=== PATIENT | female | born 1965 | race Caucasian/White ===

== ENCOUNTER 2017-09-06 18:03 | Emergency (ER) | payer BC ==
--- NOTE | 2017-09-06 20:11 | RAD ---
FOUR VIEWS OF THE LEFT KNEE 09/06/17 COMPARISON: None. HISTORY: Injured left knee, heard a pop this morning, pain. FINDINGS: There are postoperative clips medial to the distal left femur and proximal left tibia. There is athe rosclerotic calcification seen posteriorly in the thigh and calf region. There is no knee joint effu luis, displaced fracture, or evidence of dislocation. The bones are osteopenic. IMPRESSION: No displaced fracture or dislocation seen. POS: [facility]
[2017-09-06] MEDS ORDERED: Acetaminophen 325 MG TAB ONE (21:14)
== END 2017-09-06 21:23 | disposition home or self-care (01) ==
LOC: ERS 18:03
DX: S83.92XA Sprain of unspecified site of left knee, initial encounter (principal); I25.2 Old myocardial infarction; I10 Essential (primary) hypertension; E11.9 Type 2 diabetes mellitus without complications; F41.9 Anxiety disorder, unspecified; F17.210 Nicotine dependence, cigarettes, uncomplicated; Z79.899 Other long term (current) drug therapy; Z79.82 Long term (current) use of aspirin; X50.9XXA Other and unspecified overexertion or strenuous movements or postures, initial encounter

== ENCOUNTER 2017-10-16 08:16 | Observation (INO) | payer BC ==
[2017-10-16 09:17] LABS: Lactic Acid - Sepsis 1.3 mmol/L (0.5-2.2)
[2017-10-16 09:18] LABS: #Basophils 0.1 thou/uL (0.0-0.2); #Eosinphils 0.5 thou/uL (0.0-0.7); #Lymphocytes 2.8 thou/uL (1.20-3.40); #Monocytes 0.5 thou/uL (0.11-0.59); %Basophils 0.7 % (0.0-1.0); %Eosinophils 5.1 % (0.0-10.0); %Lymphocytes 28.1 % (21.0-51.0); %Monocytes 4.7 % (0.0-10.0); Hematocrit 47.3 % (36.0-47.0); Mean Platelet Volume 8.6 fL (7.4-10.4); Red Blood Cell (RBC) Count 5.74 mill/uL (4.20-5.40); White Blood Cell (WBC) Count 9.8 thou/uL (4.8-10.8)
[2017-10-16 09:20] LABS: ALT (SGPT) 68 U/L (8-55); AST (SGOT) 38 U/L (5-34); Alkaline Phosphatase 124 U/L (40-150); Anion Gap 21 mmol/L (10-20); BUN (Urea Nitrogen) 65 mg/dL (9.8-20.1); Bilirubin, Total 0.5 mg/dL (0.2-1.2); CK (CPK) 57 U/L (29-168); Calc. Creatinine Clearance 0 mL/min (70-130); Calcium 9.1 mg/dL (7.8-10.44); Carbon Dioxide 26 mmol/L (22-29); Chloride 96 mmol/L (98-107); Estimated GFR-MDRD 5; Globulin 3.9 g/dL (2.4-3.5); Lipase 178 U/L (8-78); Magnesium 3.5 mg/dL (1.6-2.6); Protein, Total 7.6 g/dL (6.0-8.3)
[2017-10-16 09:25] LABS: Troponin I Less than 0.010 ng/mL (< 0.028)
--- NOTE | 2017-10-16 09:52 | RAD ---
SINGLE VIEW OF CHEST: Date: 10/16/17 COMPARISON: 05/31/17. HISTORY: Hypotension and chest pain. FINDINGS: Single view of the chest shows normal sized cardiomediastinal silhouette. The patient is status post sternotomy. There is no evidence of consolidation, mass, or pleural effusion. IMPRESSION: No evidence of acute cardiopulmonary disease. POS: [facility]
--- NOTE | 2017-10-16 10:16 | CT ---
CT BRAIN WITHOUT CONTRAST: Comparison: 05-23-17 History: Headache. Technique: Multiple contiguous axial images were obtained in a CT of the brain without contrast. FINDINGS: There is a stable calcification in the midline of the falx which may represent a calcified meningioma . There is no evidence of hydrocephalus, intracranial hemorrhage, or extraaxial fluid collection. The calvarium and overlying soft tissues are unremarkable. The visualized paranasal sinuses and masto id air cells are well aerated. IMPRESSION: 1. No evidence of acute intracranial abnormality. 2. Stable small calcification in the anterior aspect of the falx may represent a meningioma. POS: [facility]
[2017-10-16 10:32] LABS: Bilirubin Negative (Negative); Blood, Urine Small (Negative); Glucose, Urine (Dipstick) 100 mg/dL (Negative); Ketone, Urine Negative (Negative); Nitrite Negative (Negative); Protein, Urine (Dipstick) 300 mg/dL (Neg-Trace); Urobilinogen 0.2 mg/dL (0.2-1.0)
[2017-10-16] MEDS ORDERED: Acetaminophen 500 MG TAB ONE (10:32)
[2017-10-16 10:35] LABS: Bacteria/HPF 4+ HPF (None Seen); Hyaline Casts/LPF 0-3 HYALINE CAST LPF (0-3 Hyaline); Squamous Epithelial None Seen HPF (0-3)
[2017-10-16 10:50] LABS: Yeast-All Forms None Seen HPF (None Seen)
--- NOTE | 2017-10-16 11:05 | RAD ---
UPRIGHT AND SUPINE ABDOMINAL RADIOGRAPHS: 10/16/2017 HISTORY: Abdominal pain and constipation. Hypotension. Patient on home peritoneal dialysis. COMPARISON: None available. FINDINGS: Surgical clips overly the right upper quadrant. A radiopaque catheter overlies the pelvis, related t o the patient's peritoneal dialysis catheter. There are prominent vascular calcifications seen in th e region of the renal arteries, as well as involving the visualized celiac artery and iliac and femor al arteries. Multiple phleboliths overly the pelvis. No definite suspicious calcifications are seen . Partial visualization of median sternotomy wires is present, and the visualized lung bases are enrique ar. The bowel gas pattern is nonspecific. Osseous structures are intact. IMPRESSION: 1. Nonspecific bowel gas pattern. 2. Prominent atherosclerotic vascular calcification. 3. Peritoneal dialysis catheter overlying the pelvis. POS: [facility]
--- NOTE | 2017-10-16 12:26 | HP ---
PRIMARY CARE PHYSICIAN: Dr. Snehal Fitzpatrick PRIMARY CANVAS BASTER: Dr. Kenny PRIMARY REEL TENDER: Dr. Castle CHIEF COMPLAINT: Shortness of breath with low blood pressure earlier today. HISTORY OF PRESENT ILLNESS: The patient is a 52-year-old female with end-stage renal disease on lorraine toneal dialysis, coronary artery disease, status post coronary artery bypass grafting in 05/2017 and hypertension who presented to the emergency room with the above complaints. The patient felt fine this morning when she woke up. Later on, she started feeling generally weak, l ightheaded and dizzy along with some shortness of breath. She checked her blood pressure which was 9 0/60. She was also diaphoretic at that time. Her blood pressure around 5:30 a.m. was 149 systolic. She also had some tingling on her face that has resolved. No double vision, blurring of vision, fac ial asymmetry, weakness, numbness of any of her extremities reported. She has been constipated for t he past few days. She recently started Metamucil. She is compliant with all of her medications. Pr ocardia-XL was increased from 60 mg daily to 120 mg daily, earlier this month. In the emergency room, initial vital signs showed temperature 97.7, respirations 18, pulse of 76, blo od pressure 143/82 with O2 saturation 97% on room air. Her electrolytes were abnormal with a potassi um 5.6 with magnesium 3.5, with some abnormal LFTs. She received Kayexalate with lactulose in the em ergency room. Urinalysis showed greater than 50 WBCs with 4+ bacteria. Her chest x-ray was negative for acute findings. CT brain was negative for acute findings. KUB showed nonobstructive GI pattern . PAST MEDICAL HISTORY: 1. End-stage renal disease on peritoneal dialysis. 2. Coronary artery disease, status post CABG in May of this year. 3. Diabetes mellitus type 2. 4. Anxiety and depression. 5. Celiac disease. 6. Hypertension. 7. Obesity with bariatric surgery in the past. 8. History of cerebrovascular without residual deficit. 9. Hypothyroidism. 10. Vitamin D deficiency. 11. Chronic anemia. PAST SURGICAL HISTORY: 1. Bariatric surgery. 2. Coronary artery bypass grafting. 3. Dialysis access. 4. Left shoulder surgery. 5. Bilateral feet surgery. ALLERGIES: CODEINE and MADISON PEPPER. CURRENT HOME MEDICATIONS: Procardia-XL 120 mg daily, Protonix 40 mg daily, Renvela 800 mg 3 times da alicia, aspirin 325 mg daily, Lipitor 40 mg daily, bupropion 75 mg b.i.d., carvedilol 25 mg b.i.d., mult ivitamin 1 tablet daily, levothyroxine 100 mcg daily, lisinopril 10 mg daily. SOCIAL HISTORY: The patient currently lives at home. Quit smoking after CABG, drinks alcohol social ly, no drug use. FAMILY HISTORY: Negative for premature coronary artery disease. REVIEW OF SYSTEMS: The following complete review of systems was negative, unless otherwise mentioned in the HPI or below: Constitutional: Weight loss or gain, ability to conduct usual activities. Skin: Rash, itching. Eyes: Double vision, pain. ENT/Mouth: Nose bleeding, neck stiffness, pain, tenderness. Cardiovascular: Palpitations, dyspnea on exertion, orthopnea. Respiratory: Shortness of breath, wheezing, cough, hemoptysis, fever or night sweats. Gastrointestinal: Poor appetite, abdominal pain, heartburn, nausea, vomiting, constipation, or diarrhea. Genitourinary: Urgency, frequency, dysuria, nocturia. Musculoskeletal: Pain, swelling. Neurologic/Psychiatric: Anxiety, depression. Allergy/Immunologic: Skin rash, bleeding tendency. PHYSICAL EXAMINATION: VITAL SIGNS: As discussed above. GENERAL: A 52-year-old female in no apparent distress. Feels generally weak. HEENT: Head atraumatic, normocephalic, sclerae are anicteric. Moist mucous membranes. No oral lesi on. NECK: Supple, no JVD, no carotid bruit. LUNGS: Clear to auscultation bilaterally with scattered rales at bases. HEART: S1, S2 present. Regular rate and rhythm. No murmurs, rubs or gallops. Healed midline scar from previous CABG. ABDOMEN: Soft, bowel sounds present, no rebound, guarding, no costovertebral angle tenderness. EXTREMITIES: No edema or calf tenderness. NEUROLOGIC: Grossly nonfocal, moves all 4 extremities. PSYCHIATRY: Alert, awake, oriented x3. SKIN: Warm and dry. LYMPH NODES: No palpable lymph nodes in the neck. PERIPHERAL VASCULAR: Radial pulses palpable bilaterally. MUSCULOSKELETAL: No joint swelling or tenderness. LABORATORY AND X-RAY FINDINGS: CBC showed WBC 9.8, hemoglobin 15.2, hematocrit 47.3, platelet of 272 . Chemistries showed sodium 137, potassium 5.6, chloride 96, bicarbonate 26, BUN 65, creatinine 8.91 , magnesium 3.5. Troponins were normal. Chest x-ray by my review as discussed above. EKG by my rev iew showed sinus rhythm with left axis deviation with nonspecific ST-T wave changes. IMPRESSION: 1. Near syncope, probably secondary to hypotension from recent increase in Procardia-XL. 2. Hyperkalemia. 3. History of hypertension. 4. Hypermagnesemia. 5. End-stage renal disease on peritoneal dialysis. 6. Shortness of breath/dyspnea on exertion. Questionable anginal equivalent. 7. Anxiety and depression. 8. History of celiac disease. 9. Diabetes mellitus type 2. 10. History of cerebrovascular accident without residual deficit in the past. 11. Coronary artery disease status post bypass earlier this year. 12. Hypothyroidism. 13. Vitamin D deficiency. 14. Chronic anemia. 15. Urinary tract infection. PLAN: The patient will be monitored in the telemetry unit as a 23-hour observation. Serial cardiac enzymes will be done. Urine culture will be added. Empiric antibiotics will be started. I discusse d with Nephrology, Dr. Kenny. Peritoneal dialysis will be done today. We will repeat labs in a.m. We will change Procardia-XL to 60 mg daily. We will discontinue lisinopril due to hyperkalemia. W e will also do postvoid residuals.
[2017-10-16 12:57] LABS: Troponin I Less than 0.010 ng/mL (< 0.028)
[2017-10-16] MEDS ORDERED: Ondansetron ODT 4 MG TAB SL PRN (13:50)
[2017-10-16] MEDS ORDERED: Ondansetron HCl/PF 4 MG/2 ML Vial IVP PRN ×2 (13:50→13:54)
[2017-10-16] MEDS ORDERED: cefTRIAXone\\ROCEPHIN 1 GM in Sodium Chloride 0.9% 100 ML IVPB SCH (13:54)
[2017-10-16] MEDS ORDERED: Calcium Carbonate 500 MG ChewTAB PO PRN (13:54)
[2017-10-16] MEDS ORDERED: Insulin Regular 300 UNITS/3 ML VIAL SC PRN ×2 (13:54)
[2017-10-16] MEDS ORDERED: Ondansetron ODT 4 MG TAB PO PRN (13:54)
[2017-10-16] MEDS ORDERED: Nitroglycerin 0.4 MG TAB (25 Tab Bottle) PO PRN (13:54)
[2017-10-16] MEDS ORDERED: Acetaminophen 325 MG TAB PO PRN (13:54)
[2017-10-16] MEDS ORDERED: Dextrose 50% Abboject 50 ML SYRINGE SLOW IVP PRN (13:54)
[2017-10-16] MEDS ORDERED: Dextrose 5% in Water 1,000 ML IV PRN (13:54)
[2017-10-16 13:59] VITALS: BMI 22.4
[2017-10-16] MEDS ORDERED: Bisacodyl 10 MG SUPP PR PRN (14:48)
[2017-10-16] MEDS ORDERED: hydrALAZINE 20 MG/ML VIAL SLOW IVP PRN ×2 (14:53→16:37)
[2017-10-16] MEDS ORDERED: cefTRIAXone\\ROCEPHIN 1 GM, Syringe 0.4 ML in Sterile Water 9.6 ML SLOW IVP SCH (15:00)
[2017-10-16] MEDS ORDERED: Polyethylene Glycol 3350 17 GM Packet PO SCH (15:00)
[2017-10-16] MEDS: Sevelamer Carbonate 800 MG TAB PO SCH (15:25)
[2017-10-16 15:53] LABS: Troponin I Less than 0.010 ng/mL (< 0.028)
[2017-10-16] MEDS ORDERED: Ondansetron HCl/PF 4 MG/2 ML Vial SLOW IVP SCH (19:00)
[2017-10-16] MEDS: buPROPion 75 MG TAB PO SCH (20:50)
[2017-10-16] MEDS: Docusate 100 MG CAP PO SCH (20:51)
[2017-10-16] MEDS: Carvedilol 25 MG TAB PO SCH (20:51)
[2017-10-16] MEDS: NIFEdipine XL 30 MG TAB PO SCH (20:51)
[2017-10-16] MEDS ORDERED: Atorvastatin Calcium 40 MG TAB PO SCH (21:00)
--- NOTE | 2017-10-17 01:05 | CON ---
NEPHROLOGY CONSULTATION NOTE DATE OF CONSULTATION: 10/16/2017 CONSULTING PHYSICIAN: Dr. Allen. REASON FOR CONSULTATION: End-stage renal disease evaluation and care. REASON FOR ADMISSION: Dizziness. HISTORY OF PRESENT ILLNESS: A 52-year-old female with history of end-stage renal disease, hypertensi on and coronary artery disease, who came to the hospital with dizziness. The patient was doing fine this morning. She had some dizziness and blood pressure was 90/60. EMS brought her to the [facility]. Blood pressure was better in the hospital. Her sugar was okay. She is on few medicines and blood pressure has been getting better. She has been constipated for the last few days. PAST MEDICAL HISTORY: Positive for end-stage renal disease, coronary artery disease, type 2 diabetes , anxiety, depression, celiac disease, hypertension, obesity, CVA, hypothyroidism, vitamin D deficien cy and chronic anemia. PAST SURGICAL HISTORY: Bariatric surgery, CABG, dialysis access, left shoulder surgery and bilateral feet surgery. ALLERGIES: CODEINE and MADISON PEPPER. HOME MEDICATIONS: Procardia, Protonix, Renvela, aspirin, Lipitor, bupropion, carvedilol, multivitami n, levothyroxine and lisinopril. SOCIAL HISTORY: No smoking, alcohol or illicit drug abuse. FAMILY HISTORY: No history of kidney disease. REVIEW OF SYSTEMS: The following complete review of systems was negative, unless otherwise mentioned in the HPI or below: Constitutional: Weight loss or gain, ability to conduct usual activities. Skin: Rash, itching. Eyes: Double vision, pain. ENT/Mouth: Nose bleeding, neck stiffness, pain, tenderness. Cardiovascular: Palpitations, dyspnea on exertion, orthopnea. Respiratory: Shortness of breath, wheezing, cough, hemoptysis, fever, or night sweats. Gastrointestinal: Poor appetite, abdominal pain, heartburn, nausea, vomiting, constipation, or diarr hea. Genitourinary: Urgency, frequency, dysuria, nocturia. Musculoskeletal: Pain, swelling. Neurologic/Psychiatric: Anxiety, depression. Allergy/Immunologic: Skin rash, bleeding tendency. PHYSICAL EXAMINATION: GENERAL: This is a thin-built white female, in no apparent distress. VITAL SIGNS: Temperature 98.4, pulse 81, respiratory 20 and blood pressure 133/60. HEENT: Atraumatic and normocephalic. Oral mucosa is moist. NECK: Supple. No masses. CARDIOVASCULAR: S1 and S2 heard. Rate and rhythm regular. RESPIRATORY: Clear. ABDOMEN: Soft. MUSCULOSKELETAL: 1+ edema. DERMATOLOGIC: No skin rash. NEUROLOGIC: Alert and awake. PSYCHIATRIC: Mood and affect normal. LABORATORY DATA: Potassium is 5.6, BUN is 65 and creatinine is 8.9. ASSESSMENT AND PLAN: 1. End-stage renal disease. Will continue on peritoneal dialysis as tolerated. 2. Hyperkalemia. Limit potassium in the diet and will have dialysis. 3. Edema, controlled. 4. Hypertension. Agree with reducing the dosage of the medication for now, maybe dialysis might be helping her blood pressure. 5. Advised to monitor blood pressure closely. 6. Anemia. 7. Hypoalbuminemia. Overall, plan is to continue on peritoneal dialysis, monitor one more day and rule out cardiac causes . We will followup. Thank you for the consult.
[2017-10-17 05:09] LABS: Anion Gap 21 mmol/L (10-20); BUN (Urea Nitrogen) 57 mg/dL (9.8-20.1); Calc. Creatinine Clearance 7 mL/min (70-130); Calcium 8.7 mg/dL (7.8-10.44); Carbon Dioxide 25 mmol/L (22-29); Chloride 98 mmol/L (98-107); Estimated GFR-MDRD 5
[2017-10-17] MEDS ORDERED: Levothyroxine Sodium 100 MCG TAB PO SCH (06:00)
[2017-10-17] MEDS: Sevelamer Carbonate 800 MG TAB PO SCH (08:37)
[2017-10-17] MEDS: Docusate 100 MG CAP PO SCH (08:38)
[2017-10-17] MEDS: Carvedilol 25 MG TAB PO SCH (08:38)
[2017-10-17] MEDS: NIFEdipine XL 30 MG TAB PO SCH (08:39)
[2017-10-17] MEDS: buPROPion 75 MG TAB PO SCH (08:45)
[2017-10-17] MEDS ORDERED: Polyethylene Glycol 3350 17 GM Packet PO SCH (09:00)
[2017-10-17] MEDS ORDERED: Aspirin 325 MG TAB PO SCH (09:00)
[2017-10-17 11:10] VITALS: BP 113/67; TEMP 98.7
--- NOTE | 2017-10-17 11:43 | PDOC.PN ---
- Subjective Encounter Start Date: 10/17/17 Encounter Start Time: 08:00 Subjective: feels better, no sob -: c/o constipation -: per staff she passed 2 big BM's - Objective Resuscitation Status: Resuscitation Status FULL:Full Resuscitation MAR Reviewed: Yes Vital Signs & Weight: Vital Signs (12 hours) Temp Pulse Resp BP Pulse Ox 10/17/17 11:08 98.7 F 84 16 113/67 95 10/17/17 08:39 95 10/17/17 08:00 98.0 F 95 18 170/87 H 97 10/17/17 07:55 98.0 F 95 18 10/17/17 04:15 98.3 F 92 15 132/67 94 L Weight Weight 140 lb 8 oz I&O: 10/16/17 10/17/17 10/18/17 06:59 06:59 06:59 Intake Total 310 Output Total 803 100 Balance -493 -100 Result Diagrams: 10/16/17 08:50 10/17/17 04:16 Additional Labs: Accuchecks 10/17/17 10/17/17 10/16/17 10:57 06:09 21:10 POC Glucose 199 H 146 H 268 H 10/16/17 17:45 POC Glucose 205 H Phys Exam - Physical Examination HEENT: PERRLA, moist MMs Neck: no JVD, supple Respiratory: no wheezing, no rales Cardiovascular: RRR, no significant murmur Gastrointestinal: soft, non-tender, positive bowel sounds PD cath+ Musculoskeletal: no edema, pulses present Neurological: non-focal, moves all 4 limbs Psychiatric: A&O x 3 Dx/Plan (1) ESRD on peritoneal dialysis Code(s): N18.6 - END STAGE RENAL DISEASE; Z99.2 - DEPENDENCE ON RENAL DIALYSIS Status: Acute (2) CAD (coronary artery disease) Code(s): I25.10 - ATHSCL HEART DISEASE OF [place] CORONARY ARTERY W/O ANG PCTRS Status: Chronic Qualifiers: Coronary Disease-Associated Artery/Lesion type: bypass graft [place] vs. transplanted heart: [place] heart Associated angina: without angina Qualified Code(s): I25.810 - Atherosclerosis of coronary artery bypass graft(s) without angina pectoris (3) Anxiety and depression Code(s): F41.9 - ANXIETY DISORDER, UNSPECIFIED; F32.9 - MAJOR DEPRESSIVE DISORDER, SINGLE EPISODE, UNSPECIFIED Status: Chronic (4) Celiac disease Code(s): K90.0 - CELIAC DISEASE Status: Chronic (5) Chronic anemia Code(s): D64.9 - ANEMIA, UNSPECIFIED Status: Chronic (6) DM2 (diabetes mellitus, type 2) Status: Chronic Qualifiers: Diabetes mellitus complication status: with kidney complications Diabetes mellitus complication detail: with chronic kidney disease Diabetes mellitus termite exterminator insulin use: with mcc use Chronic kidney disease stage: on chronic dialysis Qualified Code(s): E11.22 - Type 2 diabetes mellitus with diabetic chronic kidney disease; N18.6 - End stage renal disease; N18.6 - End stage renal disease; N18.6 - End stage renal disease; N18.6 - End stage renal disease; Z79.4 - equipment operator intermodal yard (current) use of insulin; Z79.4 - senior care (current ) use of insulin; Z79.4 - equipment operator intermodal yard (current) use of insulin; Z79.4 - senior care (current) use of insulin; Z99.2 - Dependence on renal dialysis; Z99.2 - Dependence on renal dialysis; Z99.2 - Dependence on renal dialysis; Z99.2 - Dependence on renal dialysis (7) HTN (hypertension) Code(s): I10 - ESSENTIAL (PRIMARY) HYPERTENSION Status: Chronic Qualifiers: Hypertension type: essential hypertension Qualified Code(s): I10 - Essential (primary) hypertension (8) Hypothyroidism Code(s): E03.9 - HYPOTHYROIDISM, UNSPECIFIED Status: Chronic Qualifiers: Hypothyroidism type: unspecified Qualified Code(s): E03.9 - Hypothyroidism , unspecified (9) UTI (urinary tract infection) Status: Acute Qualifiers: Urinary tract infection type: acute cystitis Hematuria presence: without hematuria Qualified Code(s): N30.00 - Acute cystitis without hematuria - Plan levaquin for uti, pending culture -: dulcolax suppository -: may dc home -: needs to f/u culture results with PCP -: to f/u with in 2-3 weeks, is on PPI * .
--- NOTE | 2017-10-17 13:27 | PRG ---
DATE OF SERVICE: 10/17/2017 SUBJECTIVE: Patient was seen and examined at bedside and overnight events noted. Patient denies any shortness of breath or chest pain or palpitation. No history of nausea or vomiting or diarrhea or f ever or chills or cramps. OBJECTIVE: GENERAL: This is a well-built female, in no apparent distress. VITAL SIGNS: Temperature 98.0, pulse 95, respirations 18, blood pressure 132/67. HEENT: Atraumatic, normocephalic. Oral mucosa is moist. NECK: Supple. CARDIOVASCULAR: S1, S2 heard. Rate and rhythm regular. RESPIRATORY: Clear to auscultation. GASTROINTESTINAL: Abdomen is soft. MUSCULOSKELETAL: No tenderness, no edema. DERMATOLOGIC: No skin rash. NEUROLOGIC: Alert and awake and oriented x3. No focal neurologic deficits. Moving all the extremit ies. PSYCHIATRIC: Mood and affect normal. LABORATORY DATA: Potassium is 4.1, BUN 57, creatinine is 8.9. ASSESSMENT AND PLAN: 1. End-stage renal disease. Continue on peritoneal dialysis. 2. Chronic constipation. Recommend lactulose daily. The patient is not having good success with ov [id number] medications. 3. Hypertension, stable. Elevated blood pressure this morning, before the morning medications. Mon itor blood pressure after the doses today. 4. Edema, controlled. 5. Anemia. 6. Hypoalbuminemia, mild. Continue to treat constipation. Continue on peritoneal dialysis as tolerated. We will follow.
--- NOTE | 2017-10-17 20:14 | DIS ---
DATE OF ADMISSION: 10/16/2017 DATE OF DISCHARGE: 10/17/2017 DISCHARGE DISPOSITION: To home. PRIMARY DISCHARGE DIAGNOSES: Volume overload; urinary tract infection; initial hypotension, resolved ; end-stage renal disease, on peritoneal dialysis; history of celiac disease; hypothyroidism; dyslipi demia; coronary artery disease; diabetes mellitus type 2. PROCEDURES DONE DURING HOSPITALIZATION: CT brain done showed no acute intracranial abnormalities. S mall stable calcification on the anterior aspect of the falx, which may represent meningioma, this wa s compared to a prior CAT scan done on 05/23/2017. Chest x-ray done showed no acute cardiopulmonary abnormalities. Abdominal plain x-ray done showed nonspecific bowel gas pattern, prominent vascular calcifications were seen. Peritoneal dialysis catheter overlying pelvis. Blood culture x1, no growt h. Urine culture is growing E. coli more than 100,000 at present, this is a preliminary result. Whi te count of 9, H&H 15 and 47, platelet count 272, BUN 57, creatinine 8.9. Serum bicarbonate 25. Tro ponin x3 is negative. CK-MB 1.7. DISCHARGE MEDICATIONS: Aspirin 325 mg p.o. daily, atorvastatin 40 mg p.o. at bedtime, bupropion 75 m g p.o. twice daily, Coreg 25 mg p.o. twice daily, Colace 100 mg p.o. twice daily, Lantus 12 units sub cu q.a.m., Levaquin 250 mg q.48 hourly a total of 3 tablets, levothyroxine 100 mcg p.o. daily, Proton ix 40 mg p.o. daily, Procardia-XL 60 mg twice daily, sevelamer 800 mg p.o. three times daily. ALLERGIES: CODEINE, ULTRAM AND MADISON PEPPER. INPATIENT CONSULTS: Dr. Kenny for Nephrology. BRIEF COURSE DURING HOSPITALIZATION: The patient initially got admitted with complaints of shortness of breath and low blood pressure earlier in the day prior to coming here. She had blood pressures o f 90/60 at home. On arrival here, the patient had systolic blood pressures of 143/82. Her UA was po sitive for UTI and full culture results are pending at present. She was continued on peritoneal dial ysis during her brief stay here. Her blood pressure has been stable. The patient has had constipati on and this has resolved at present. She was placed on a bowel regimen with Colace and MiraLax at pr esent. Primary care physician/Dr. Kenny to follow up on urine culture results. The preliminary cu lture is growing E. coli more than 100,000. She is on Levaquin for the same at present. The patient has not had any fever and is hemodynamically stable prior to discharge. She is ambulating in the [facility] at present.
== END 2017-10-17 11:59 | disposition home or self-care (01) ==
LOC: ERS 08:16 → 2SW 13:53
PROVIDERS: ADMIT Internal Medicine; ATTEND Internal Medicine
DX: E87.70 Fluid overload, unspecified (principal); N39.0 Urinary tract infection, site not specified; I95.9 Hypotension, unspecified; E11.22 Type 2 diabetes mellitus with diabetic chronic kidney disease; I12.0 Hypertensive chronic kidney disease with stage 5 chronic kidney disease or end stage renal disease; N18.6 End stage renal disease; K90.0 Celiac disease; E03.9 Hypothyroidism, unspecified; E78.5 Hyperlipidemia, unspecified; I25.10 Atherosclerotic heart disease of native coronary artery without angina pectoris; F41.8 Other specified anxiety disorders; D64.9 Anemia, unspecified; E55.9 Vitamin D deficiency, unspecified; E87.5 Hyperkalemia; E88.09 Other disorders of plasma-protein metabolism, not elsewhere classified; Z79.82 Long term (current) use of aspirin; Z79.4 Long term (current) use of insulin; Z79.2 Long term (current) use of antibiotics; Z79.899 Other long term (current) drug therapy; Z99.2 Dependence on renal dialysis; Z88.5 Allergy status to narcotic agent; Z91.018 Allergy to other foods; Z98.84 Bariatric surgery status; Z95.1 Presence of aortocoronary bypass graft; Z98.890 Other specified postprocedural states; Z86.73 Personal history of transient ischemic attack (TIA), and cerebral infarction without residual deficits; Z87.891 Personal history of nicotine dependence
CPT/HCPCS: 36415; 36416; 70450; 71010; 74020; 80048; 80053; 81003; 81015; 82550; 82553; 83605; 83690; 83735; 84484; 85025; 87040; 87077; 87086; 87186; 90945; 93005; 93306; 94760; 96374; 96375; 96376; A4216; G0257; G0378; J0360; J0696; J1815; J2405; Q0162

== ENCOUNTER 2017-11-18 22:04 | Emergency (ER) | payer BC ==
[2017-11-19] MEDS ORDERED: HYDROcodone/Acetaminophen 5/325 mg Tablet ONE (00:46)
--- NOTE | 2017-11-19 07:32 | RAD ---
THREE VIEWS RIGHT WRIST: 11/18/2017 HISTORY: The patient fell in driveway tripping over a cat and landed on right arm. Injury to right wrist. FINDINGS: There is a mildly comminuted fracture involving the distal right radial metaphysis with apex volar an gulation of the fracture fragments. There is also a fracture involving the distal fibula also with m ild apex anterior angulation of the fracture fragments. There is no dislocation. No fracture is see n extending to the articular surface. Vascular calcifications are seen at the wrist involving the desai nd. IMPRESSION: Fractures involving the distal radial and ulnar metaphyses, right wrist, with apex volar angulation o f the fracture fragments. The fracture involving the distal radial metaphysis is mildly comminuted, but no fracture lucency is seen extending to the articular surface. POS: [facility]
== END 2017-11-19 00:52 | disposition home or self-care (01) ==
LOC: ERS 22:04
DX: S52.501A Unspecified fracture of the lower end of right radius, initial encounter for closed fracture (principal); S52.601A Unspecified fracture of lower end of right ulna, initial encounter for closed fracture; I25.2 Old myocardial infarction; I10 Essential (primary) hypertension; E11.9 Type 2 diabetes mellitus without complications; F41.9 Anxiety disorder, unspecified; F17.210 Nicotine dependence, cigarettes, uncomplicated; Z79.4 Long term (current) use of insulin; Z79.899 Other long term (current) drug therapy; W01.0XXA Fall on same level from slipping, tripping and stumbling without subsequent striking against object, initial encounter
CPT/HCPCS: 29125; 99406

== ENCOUNTER 2017-11-21 12:12 | Day surgery (SDC) | payer BC, MEDICARE ==
[2017-11-20 15:47] VITALS: BMI 23.1
[~2017-11-21 12:12] MED LIST: Bupivacaine HCl 0.5%/Epinephrine 1:200,000/PF 30 ml Vial ONE; Bupivacaine PF 0.5% 30 ML VIAL ONE; Lidocaine 1% PF 5 ML VIAL ONE
[2017-11-21] MEDS ORDERED: Fentanyl 100 MCG/2 ML VIAL ONE ×2 (13:21→15:51)
[2017-11-21] MEDS ORDERED: Midazolam HCl 2 mg/2 ml Vial ONE ×2 (13:21→15:51)
[2017-11-21 13:34] LABS: #Basophils 0.1 thou/uL (0.0-0.2); #Eosinphils 0.2 thou/uL (0.0-0.7); #Lymphocytes 2.7 thou/uL (1.20-3.40); #Neutrophils 7.7 thou/uL (1.40-6.50); %Basophils 0.5 % (0.0-1.0); %Eosinophils 1.7 % (0.0-10.0); %Lymphocytes 22.9 % (21.0-51.0); %Monocytes 8.9 % (0.0-10.0); %Neutrophils 66.1 % (42.0-75.0); Mean Corpuscular HGB CONC 31.4 g/dL (32.0-36.0); Mean Corpuscular Hemoglobin 26.6 pg (27.0-31.0); Mean Corpuscular Volume 84.9 fl (81.0-99.0); Mean Platelet Volume 7.9 fL (7.4-10.4); Platelet Count 243 thou/uL (130-400); RBC Distribution Width 14.6 % (11.5-14.5); Red Blood Cell (RBC) Count 4.15 mill/uL (4.20-5.40); White Blood Cell (WBC) Count 11.6 thou/uL (4.8-10.8)
[2017-11-21 13:56] LABS: Anion Gap 15 mmol/L (10-20); BUN (Urea Nitrogen) 40 mg/dL (9.8-20.1); Calc. Creatinine Clearance 9 mL/min (70-130); Calcium 8.6 mg/dL (7.8-10.44); Carbon Dioxide 24 mmol/L (22-29); Chloride 100 mmol/L (98-107); Estimated GFR-MDRD 6; Glucose 172 mg/dL (70-105); Potassium 4.3 mmol/L (3.5-5.1); Sodium 135 mmol/L (136-145)
[2017-11-21] MEDS ORDERED: CEFAZOLIN/Water 2 GM/20 ML SYRINGE ONE (15:43)
[2017-11-21] MEDS ORDERED: Propofol 500 MG/50 ML VIAL ONE (15:51)
--- NOTE | 2017-11-21 19:58 | EKG ---
Test Reason : PREOP Blood Pressure : / mmHG Vent. Rate : 067 BPM Atrial Rate : 067 BPM P-R Int : 162 ms QRS Dur : 094 ms QT Int : 468 ms P-R-T Axes : 004 010 097 degrees QTc Int : 494 ms Normal sinus rhythm Nonspecific ST and T wave abnormality Prolonged QT Abnormal ECG When compared with ECG of 16-OCT-2017 08:22, Minimal criteria for Anteroseptal infarct are no longer Present No significant change was found Confirmed by APOORVA CORBETT, SJavi ([id number]) on 11/21/2017 7:58:12 PM Referred By: MARGAUX Confirmed By:DR. Gil GUERIN MD
--- NOTE | 2017-11-21 20:00 | OP ---
DATE OF OPERATION: 11/21/2017 OPERATION: Closed reduction of distal radius fracture and casting. PREOPERATIVE DIAGNOSIS: Displaced extra-articular distal radius fracture. POSTOPERATIVE DIAGNOSIS: Displaced extra-articular distal radius fracture. COMPLICATIONS: None. ESTIMATED BLOOD LOSS: None. SURGEON: Anthony Perez M.D. ANESTHESIA: General plus regional. INDICATIONS: Ms. Sommer is a 52-year-old female with multiple medical problems including dialysis . She has fallen and sustained a fracture of the right distal radius. She was indicated for closed reduction and casting. We are attempting to avoid surgical intervention given her multiple medical p roblems and high risk. She elected to proceed with this. DESCRIPTION OF PROCEDURE: Ms. Sommer was given sedation as well as regional block. At this point , we performed a reduction maneuver using flexion and traction. We took x-rays intraoperatively conf irming that the distal radius was in a reduced position, restoring volar tilt. At this point, we hel d the patient in traction and placed a short arm cast, which was well padded and well formed. This h eld the fracture in a good reduced position. We took final images in the cast. At this point, we aw ester the patient and she was taken to the recovery room in good condition.
--- NOTE | 2017-11-22 08:13 | RAD ---
TWO VIEWS RIGHT WRIST: COMPARISON: 11/18/17. HISTORY: Closed reduction of distal radius fracture. FINDINGS/IMPRESSION: Two limits intraoperative fluoroscopic views of the right wrist were submitted for interpretation. A n overlying cast obscures fine bony soft tissue detail.. There is a minimally displaced fracture of the distal radius which is better aligned than the prereduction radiograph. POS: [facility]
== END 2017-11-21 18:23 | disposition home or self-care (01) ==
LOC: SDC 12:12
PROVIDERS: ATTEND Orthopaedic Surgery
PROC: 0PSHXZZ Reposition Right Radius, External Approach (ICD-10-PCS; principal; 2017-11-21)
DX: S52.551A Other extraarticular fracture of lower end of right radius, initial encounter for closed fracture (principal); I25.2 Old myocardial infarction; E07.9 Disorder of thyroid, unspecified; E78.00 Pure hypercholesterolemia, unspecified; G43.909 Migraine, unspecified, not intractable, without status migrainosus; K90.0 Celiac disease; M79.7 Fibromyalgia; F32.9 Major depressive disorder, single episode, unspecified; N19 Unspecified kidney failure; I10 Essential (primary) hypertension; E11.9 Type 2 diabetes mellitus without complications; I77.0 Arteriovenous fistula, acquired; Z86.73 Personal history of transient ischemic attack (TIA), and cerebral infarction without residual deficits; Z79.4 Long term (current) use of insulin; Z79.82 Long term (current) use of aspirin; Z79.899 Other long term (current) drug therapy; Z88.5 Allergy status to narcotic agent; Z91.018 Allergy to other foods; Z95.1 Presence of aortocoronary bypass graft; Z95.9 Presence of cardiac and vascular implant and graft, unspecified; Z90.3 Acquired absence of stomach [part of]; Z90.710 Acquired absence of both cervix and uterus; Z98.890 Other specified postprocedural states; W19.XXXA Unspecified fall, initial encounter
CPT/HCPCS: 36416; 76000; 80048; 85025; 93005; 93010; J0670; J2001; J2250; J2704; J3010; S0020

== ENCOUNTER 2018-03-07 10:25 | Observation (INO) | payer BC, MEDICARE ==
[2018-03-07 11:32] LABS: #Basophils 0.1 thou/uL (0.0-0.2); #Eosinphils 0.7 thou/uL (0.0-0.7); #Lymphocytes 2.6 thou/uL (1.20-3.40); #Monocytes 0.9 thou/uL (0.11-0.59); #Neutrophils 8.4 thou/uL (1.40-6.50); %Basophils 0.9 % (0.0-1.0); %Eosinophils 5.2 % (0.0-10.0); %Lymphocytes 20.4 % (21.0-51.0); %Monocytes 7.5 % (0.0-10.0); Hemoglobin 14.2 g/dL (12.0-16.0); Mean Corpuscular HGB CONC 32.7 g/dL (32.0-36.0); Mean Corpuscular Hemoglobin 27.2 pg (27.0-31.0); Mean Corpuscular Volume 83.1 fl (81.0-99.0); Mean Platelet Volume 8.2 fL (7.4-10.4); Platelet Count 261 thou/uL (130-400); RBC Distribution Width 12.9 % (11.5-14.5); Red Blood Cell (RBC) Count 5.21 mill/uL (4.20-5.40); White Blood Cell (WBC) Count 12.7 thou/uL (4.8-10.8)
[2018-03-07 11:47] LABS: ALT (SGPT) 139 U/L (8-55); AST (SGOT) 70 U/L (5-34); Albumin 3.6 g/dL (3.5-5.0); Alkaline Phosphatase 158 U/L (40-150); Anion Gap 16 mmol/L (10-20); BUN (Urea Nitrogen) 50 mg/dL (9.8-20.1); Bilirubin, Total 0.4 mg/dL (0.2-1.2); CK (CPK) 75 U/L (29-168); Calc. Creatinine Clearance 0 mL/min (70-130); Calcium 8.6 mg/dL (7.8-10.44); Carbon Dioxide 24 mmol/L (22-29); Chloride 100 mmol/L (98-107); Estimated GFR-MDRD 6; Globulin 3.2 g/dL (2.4-3.5); Glucose 256 mg/dL (70-105); Potassium 5.2 mmol/L (3.5-5.1); Protein, Total 6.8 g/dL (6.0-8.3); Sodium 135 mmol/L (136-145)
[2018-03-07 11:52] LABS: CKMB 2.1 ng/mL (0-6.6); Troponin I Less than 0.010 ng/mL (< 0.028)
--- NOTE | 2018-03-07 11:57 | CT ---
HEAD CT WITHOUT CONTRAST: Date: 03/07/18 COMPARISON: 10/16/17. HISTORY: Dizziness and lightheadedness, confusion and fatigue. TECHNIQUE: Serial axial CT imaging at 5 mm intervals from vertex through skull ed without contrast. FINDINGS: The imaged paranasal sinuses and mastoid air cells are well aerated. There is no displaced calvarial fracture. There is no intracranial hemorrhage, midline shift, or mass effect. IMPRESSION: No acute findings. POS: [facility]
[2018-03-07] MEDS ORDERED: Lidocaine 1% w/Epinephrine 1:100K 20 ML VIAL ONE (12:21)
[2018-03-07] MEDS ORDERED: Dextrose 50% Abboject 50 ML SYRINGE SLOW IVP PRN (14:26)
[2018-03-07] MEDS ORDERED: Guaifenesin DM 100-10/5 ML UDCUP PO PRN (14:26)
[2018-03-07] MEDS ORDERED: HumaLOG 300 UNITS/3 ML VIAL SC PRN ×2 (14:26)
[2018-03-07] MEDS ORDERED: Acetaminophen 325 MG TAB PO PRN (14:26)
[2018-03-07] MEDS ORDERED: Dextrose 5% in Water 1,000 ML IV PRN (14:26)
[2018-03-07 14:48] VITALS: BMI 22.2
[2018-03-07] MEDS ORDERED: Sulfameth/Trimethoprim DS 800-160mg TAB PO SCH (16:00)
--- NOTE | 2018-03-07 16:06 | RAD ---
PORTABLE CHEST: 03/07/18 HISTORY: Question infiltrate/pneumonia. COMPARISON: 10/16/17. The lung lynne are clear. No evidence of infiltrate identified on this portable projection. No evide nce of vascular congestion or edema. No evidence of effusion. Heart size is normal. Postop sternotomy changes are noted. IMPRESSION: No acute lung process identified. POS: [facility]
[2018-03-07] MEDS: HYDROcodone/Acetaminophen 7.5/325 mg Tablet PO PRN ×2 (18:40→23:17)
[2018-03-07 19:53] LABS: BF Color Colorless; BF RBC Count - Manual 240 /cumm; BF WBC/Nonhematics Ct. - Manua 155 /cumm; Body Fluid Source PERITONEAL FLUID; Clarity Hazy (Clear); Tube # EDTA
[2018-03-07 20:25] LABS: BF Segmented Neutrophils 1 %; Cell Count Non Hematic 92 %; Lymphocytes 6 %
[2018-03-07] MEDS ORDERED: Atorvastatin Calcium 40 MG TAB PO SCH (21:00)
[2018-03-07] MEDS ORDERED: NIFEdipine XL 90 MG TAB PO SCH (22:00)
[2018-03-07] MEDS ORDERED: Carvedilol 25 MG TAB PO SCH (22:00)
[2018-03-07] MEDS ORDERED: ALPRAZolam 0.5 MG TAB PO PRN (22:01)
[2018-03-07] MEDS: Bupropion 100 MG SR TAB PO SCH (22:15)
[2018-03-07] MEDS: Docusate 100 MG CAP PO SCH (22:16)
[2018-03-07] MEDS: Heparin 5,000 UNITS/ML VIAL SC SCH (22:16)
[2018-03-07] MEDS: Famotidine 20 MG TAB PO SCH (22:16)
[2018-03-07] MEDS ORDERED: hydrALAZINE 20 MG/ML VIAL SLOW IVP SCH (23:45)
--- NOTE | 2018-03-08 00:04 | HP ---
REASON FOR ADMISSION: Near syncope, uncontrolled hypertension. HISTORY OF PRESENT ILLNESS: The patient was feeling weak at work. She was feeling tired and disoriented. She said her brain was feeling foggy. She went to restroom and while she was trying to come back, she felt like she would pass out. This was witnessed by her coworkers and finally her boss at the work place called EMS and patient was sent to the emergency room. The patient mentions that her blood pressure was 97/43 last night. Also, it goes up to very high levels more than 180 at home. Her primary care physician, Dr. Snehal Fitzpatrick has been trying to get her blood pressure controlled and has been escalating her medications. She was supposed to take Procardia-XL at 90 mg from today, which she has not started yet. No complaints of chest pain, palpitation, PND or orthopnea. No complaints of fever as such. The patient does peritoneal dialysis for her end-stage renal disease and is compliant with it. PAST MEDICAL AND SURGICAL HISTORY: History of end-stage renal disease on peritoneal dialysis, hypertension, diabetes mellitus type 2, history of CABG done in 05/[address] Ryder, prior gastric sleeve surgery, bilateral feet surgery, hysterectomy, and left shoulder surgery. CURRENT MEDICATIONS: Xanax 0.5 mg p.o. at bedtime p.r.n., aspirin 325 mg p.o. daily, Lipitor 40 mg p.o. at bedtime, bupropion 100 mg p.o. twice daily, calcitriol 0.25 mcg p.o. daily, Coreg 25 mg twice daily, vitamin D 3000 units p.o. daily, ferric citrate 420 mg p.o. 3 times daily, Lantus 14 units subq q.a.m., levothyroxine 125 mcg p.o. daily, Procardia-XL 90 mg p.o. at bedtime, and Protonix 40 mg daily. ALLERGIES: Allergic to ULTRAM, CODEINE, and MADISON PEPPER. SOCIAL HISTORY: The patient is trying to quit smoking, but is come down to 2-3 cigarettes a day, does not abuse alcohol or drugs. FAMILY HISTORY: Mother at the age of 56 years. She has had history of NC and had diabetes. Father of NC in his 60s. REVIEW OF SYSTEMS: The following complete review of systems was negative, unless otherwise mentioned in the HPI or below: Constitutional: Weight loss or gain, ability to conduct usual activities. Skin: Rash, itching. Eyes: Double vision, pain. ENT/Mouth: Nose bleeding, neck stiffness, pain, tenderness. Cardiovascular: Palpitations, dyspnea on exertion, orthopnea. Respiratory: Shortness of breath, wheezing, cough, hemoptysis, fever or night sweats. Gastrointestinal: Poor appetite, abdominal pain, heartburn, nausea, vomiting, constipation, or diarrhea. Genitourinary: Urgency, frequency, dysuria, nocturia. Musculoskeletal: Pain, swelling. Neurologic/Psychiatric: Anxiety, depression. Allergy/Immunologic: Skin rash, bleeding tendency. PHYSICAL EXAMINATION: GENERAL: The patient is a 53-year-old female who is currently not in any acute distress. VITAL SIGNS: Blood pressure 176/74, pulse 80 per minute, respiratory rate is 16 per minute, saturating 99% on room air, temperature is 97.9 degrees Fahrenheit, and saturating 99% on room air. NECK: Supple, no elevated JVD. HEENT: Eyes: Extraocular muscles intact. Pupils reacting to light. Oral cavity: Mucous membranes are dry. No exudates or congestion. CARDIOVASCULAR SYSTEM: S1, S2 heard. Regular rhythm. RESPIRATORY SYSTEM: Air entry 1+ bilateral. No rales or rhonchi. ABDOMEN: Soft, bowel sounds heard. No tenderness, rigidity, or guarding. EXTREMITIES: No peripheral edema or calf tenderness. VASCULAR SYSTEM: Peripheral pulses 1+ bilateral, no ischemic ulcerations or gangrene. CENTRAL NERVOUS SYSTEM: No gross focal deficits noted. The patient is alert, awake, and oriented well. PSYCHIATRIC SYSTEM: The patient's mood is euthymic. No hallucinations or delusions. LABORATORY DATA: CT head done showed no acute intracranial changes. White count of 12, H and H 14 and 43, and platelet count 261 with 66% neutrophils. Sodium 135, potassium 5.2, serum bicarbonate is 24, BUN 50, creatinine 7.0, glucose 256, AST 70, ALT 139, alkaline phosphatase 158. BNP of 383, albumin is 3.6. EKG done showed normal sinus rhythm at 73 beats per minute. There is evidence of prior anterolateral and inferior wall NC with Q-waves seen. CLINICAL IMPRESSION AND PLAN: The patient will be under observation on telemetry for near syncope with likely moderate dehydration and electrolyte abnormalities. I have discussed with Dr. Kenny who will be changing the dialysite for the peritoneal fluid to get her electrolytes right. She also has uncontrolled hypertension which is labile. For now, she will be on aspirin, Lipitor, Coreg, Procardia-XL at 30 mg daily, Synthroid and Wellbutrin as before. She will be closely monitored on telemetry to rule out any arrhythmias. She will be on Levemir 14 units subcu q.a.m. and Accu-Cheks a.c. and at bedtime with Humalog moderate dose scale. We will also obtain orthostatic blood pressures. She has no signs and symptoms of any infection at present. We will continue to closely monitor her on telemetry. GALINDO
--- NOTE | 2018-03-08 02:01 | CON ---
DATE OF CONSULTATION: 03/07/2018 CONSULTING PHYSICIAN: Dr. Dodson. REASON FOR CONSULTATION: End-stage renal disease evaluation and care. REASON FOR ADMISSION: Dizziness. HISTORY OF PRESENT ILLNESS: This is a 53-year-old female with history of end-stage renal disease, on peritoneal dialysis at home; anxiety; coronary artery disease; hypertension, who came to the [facility] with above complaints. The patient was feeling dizzy at work and was sent to the hospital. The pa marilyn does have diarrhea. No fever or chills. No nausea and vomiting. The patient does placed on dialysis tonight and Nephrology is consulted for maintenance dialysis. PAST MEDICAL HISTORY: Positive for end-stage renal disease, on peritoneal dialysis; coronary artery disease; CHF; hypertension; hyperlipidemia; type 2 diabetes. PAST SURGICAL HISTORY: CABG and dialysis access placement, gastric sleeve, bilateral face surgery, a nd hysterectomy. HOME MEDICATIONS: Include orexia, vitamin D, Protonix, hydroxyzine, Lipitor, aspirin, Lantus. ALLERGIES: TRAMADOL and CODEINE. SOCIAL HISTORY: No smoking, alcohol use, or drug use. FAMILY HISTORY: No history of kidney disease. REVIEW OF SYSTEMS: The following complete review of systems was negative, unless otherwise mentioned in the HPI or below: Constitutional: Weight loss or gain, ability to conduct usual activities. Skin: Rash, itching. Eyes: Double vision, pain. ENT/Mouth: Nose bleeding, neck stiffness, pain, tenderness. Cardiovascular: Palpitations, dyspnea on exertion, orthopnea. Respiratory: Shortness of breath, wheezing, cough, hemoptysis, fever or night sweats. Gastrointestinal: Poor appetite, abdominal pain, heartburn, nausea, vomiting, constipation, or diarrhea. Genitourinary: Urgency, frequency, dysuria, nocturia. Musculoskeletal: Pain, swelling. Neurologic/Psychiatric: Anxiety, depression. Allergy/Immunologic: Skin rash, bleeding tendency. PHYSICAL EXAMINATION: GENERAL: Thin built female, in no apparent distress. VITAL SIGNS: Temperature 97.9, pulse 73, respiratory rate 18, blood pressure 179/94. HEENT: Atraumatic, normocephalic. Oral mucosa is moist. NECK: Supple, no masses. CARDIOVASCULAR: S1, S2 heard. Regular rate. RESPIRATORY: Clear. GI: Abdomen is soft. MUSCULOSKELETAL: 1+ edema. DERMATOLOGIC: No skin rash. NEUROLOGIC: Alert, awake. PSYCHIATRIC: Mood and affect normal. LABORATORY DATA: Hemoglobin 14.2, potassium 5.2, BUN 50, creatinine 7.09, albumin is 3.3. ASSESSMENT AND PLAN: 1. End-stage renal disease. We will continue on peritoneal dialysis as tolerated. 2. Hyperkalemia. Limit potassium. 3. Hyponatremia. Limit fluid intake. 4. Edema, controlled. 5. Hypertension. 6. Mild hypoalbuminemia. 7. Anemia. Hemoglobin is stable. 8. Cardiorenal syndrome. 9. Hypertension, remove fluid with dialysis and titrate blood pressure medications. Check for ortho stasis. 10. We will also send PD fluid for culture because of the slight leukocytosis. We will follow.
[2018-03-08] MEDS: HYDROcodone/Acetaminophen 7.5/325 mg Tablet PO PRN (03:56)
[2018-03-08 04:36] LABS: #Basophils 0.1 thou/uL (0.0-0.2); #Monocytes 0.9 thou/uL (0.11-0.59); #Neutrophils 5.8 thou/uL (1.40-6.50); %Basophils 0.9 % (0.0-1.0); %Eosinophils 8.2 % (0.0-10.0); %Monocytes 7.6 % (0.0-10.0); %Neutrophils 49.3 % (42.0-75.0); Hemoglobin 13.7 g/dL (12.0-16.0); Mean Corpuscular HGB CONC 32.3 g/dL (32.0-36.0); Mean Corpuscular Hemoglobin 27.1 pg (27.0-31.0); Mean Corpuscular Volume 83.8 fl (81.0-99.0); Mean Platelet Volume 7.9 fL (7.4-10.4); Platelet Count 262 thou/uL (130-400); Red Blood Cell (RBC) Count 5.05 mill/uL (4.20-5.40); White Blood Cell (WBC) Count 11.8 thou/uL (4.8-10.8)
[2018-03-08 04:49] LABS: Anion Gap 17 mmol/L (10-20); BUN (Urea Nitrogen) 48 mg/dL (9.8-20.1); Calc. Creatinine Clearance 9 mL/min (70-130); Calcium 8.1 mg/dL (7.8-10.44); Carbon Dioxide 23 mmol/L (22-29); Chloride 103 mmol/L (98-107); Estimated GFR-MDRD 6; Glucose 191 mg/dL (70-105); Potassium 4.5 mmol/L (3.5-5.1); Sodium 138 mmol/L (136-145)
[2018-03-08] MEDS ORDERED: Levothyroxine Sodium 125 MCG TAB PO SCH (06:00)
[2018-03-08 07:53] VITALS: BP 139/70; TEMP 98.2
[2018-03-08] MEDS: Docusate 100 MG CAP PO SCH (08:40)
[2018-03-08] MEDS: Bupropion 100 MG SR TAB PO SCH (08:40)
[2018-03-08] MEDS: Heparin 5,000 UNITS/ML VIAL SC SCH (08:40)
[2018-03-08] MEDS: Famotidine 20 MG TAB PO SCH (08:40)
[2018-03-08] MEDS ORDERED: INSULIN DETEMIR SC SCH (09:00)
[2018-03-08] MEDS ORDERED: INSULIN GLARGINE HUM REC ANLOG 14 UNIT SC SCH (09:00)
[2018-03-08] MEDS ORDERED: Aspirin 325 MG TAB PO SCH (09:00)
[2018-03-08] MEDS ORDERED: NIFEdipine XL 30 MG TAB PO SCH (09:00)
[2018-03-08] MEDS ORDERED: Carvedilol 25 MG TAB PO SCH ×2 (09:00)
--- NOTE | 2018-03-08 13:14 | PDOC.PN ---
- Subjective Encounter Start Date: 03/08/18 Encounter Start Time: 08:00 Subjective: no chest pain or sob -: no abd pain/nausea or vomiting - Objective Resuscitation Status: Resuscitation Status FULL:Full Resuscitation MAR Reviewed: Yes Vital Signs & Weight: Vital Signs (12 hours) Temp Pulse Resp BP BP Pulse Ox 03/08/18 07:12 98.2 F 78 16 139/70 98 03/08/18 03:59 97.6 F 78 20 136/63 98 Weight Weight 141 lb 8 oz I&O: 03/07/18 03/08/18 03/09/18 06:59 06:59 06:59 Intake Total 575 Output Total 625 Balance -50 Result Diagrams: 03/08/18 04:24 03/08/18 04:25 Additional Labs: Accuchecks 03/08/18 03/08/18 03/07/18 11:48 06:17 20:39 POC Glucose 128 H 161 H 249 H 03/07/18 17:19 POC Glucose 199 H Phys Exam - Physical Examination HEENT: PERRLA, moist MMs Neck: no JVD, supple Respiratory: no wheezing, no rales Cardiovascular: RRR, no significant murmur Gastrointestinal: soft, non-tender, positive bowel sounds PD cath+ Musculoskeletal: no edema, pulses present Neurological: non-focal, moves all 4 limbs Psychiatric: normal affect, A&O x 3 Dx/Plan (1) Near syncope Status: Resolved (2) ESRD on peritoneal dialysis Code(s): N18.6 - END STAGE RENAL DISEASE; Z99.2 - DEPENDENCE ON RENAL DIALYSIS Status: Chronic (3) Anxiety and depression Code(s): F41.9 - ANXIETY DISORDER, UNSPECIFIED; F32.9 - MAJOR DEPRESSIVE DISORDER, SINGLE EPISODE, UNSPECIFIED Status: Chronic (4) CAD (coronary artery disease) Code(s): I25.10 - ATHSCL HEART DISEASE OF [place] CORONARY ARTERY W/O ANG PCTRS Status: Chronic Qualifiers: Coronary Disease-Associated Artery/Lesion type: bypass graft [place] vs. 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 Diabetes mellitus complication status: with kidney complications Diabetes mellitus complication detail: with chronic kidney disease Chronic kidney disease stage : on chronic dialysis Qualified Code(s): E11.22 - Type 2 diabetes mellitus with diabetic chronic kidney disease; N18.6 - End stage renal disease; N18.6 - End stage renal disease; N18.6 - End stage renal disease; N18.6 - End stage renal disease; Z79.4 - terminal makeup operator (current) use of insulin; Z79.4 - terminal makeup operator ( current) use of insulin; Z79.4 - terminal makeup operator (current) use of insulin; Z79.4 - jail (current) use of insulin; Z99.2 - Dependence on renal dialysis; Z99.2 - Dependence on renal dialysis; Z99.2 - Dependence on renal dialysis; Z99.2 - Dependence on renal dialysis (6) HTN (hypertension) Code(s): I10 - ESSENTIAL (PRIMARY) HYPERTENSION Status: Chronic Qualifiers: Hypertension type: essential hypertension (7) Hypothyroidism Code(s): E03.9 - HYPOTHYROIDISM, UNSPECIFIED Status: Chronic Qualifiers: Hypothyroidism type: unspecified - Plan hemostable -: no fever or signs of sepsis/sirs -: PD cath gram stain is -ve -: has foot abscess which was I&D in ER, very small -: dc pt home * .
--- NOTE | 2018-03-08 14:15 | PRG ---
DATE OF SERVICE: 03/08/2018 SUBJECTIVE: Patient was seen and examined at bedside and overnight events noted. Patient denies any shortness of breath or chest pain or palpitation. No history of nausea or vomiting or diarrhea or fever or chills or cramps. OBJECTIVE: GENERAL: A thin-built female in no apparent distress. VITAL SIGNS: Temperature 98.2, pulse 70, respirations 18, blood pressure 139/70. HEENT: Atraumatic, normocephalic. Oral mucosa is moist. NECK: Supple. CARDIOVASCULAR: S1 and S2 heard. Rate and rhythm regular. RESPIRATORY: Clear to auscultation. GASTROINTESTINAL: Abdomen is soft. MUSCULOSKELETAL: No tenderness. No edema. DERMATOLOGIC: No skin rash. NEUROLOGIC: Alert and awake and oriented x3. No focal neurologic deficits. Moving all the extremit ies. PSYCHIATRIC: Mood and affect normal. LABORATORY DATA: Potassium is 4.5, BUN is 14, creatinine is 6.9. ASSESSMENT AND PLAN: 1. End-stage renal disease, on peritoneal dialysis. We will have dialysis as tolerated. 2. Hyperkalemia, much better. Limit potassium. 3. Hypertension. 4. Anemia. 5. Cardiorenal syndrome. Blood pressure seems to be stable. We will monitor. Limit fluid intake.
[2018-03-08] MEDS ORDERED: NIFEdipine XL 90 MG TAB PO SCH (21:00)
--- NOTE | 2018-03-08 22:38 | DIS ---
DATE OF ADMISSION: 03/07/2018 DATE OF DISCHARGE: 03/08/2018 DISCHARGE DISPOSITION: To home. PRIMARY DISCHARGE DIAGNOSES: Near syncope, resolved, hypertension labile. SECONDARY DISCHARGE DIAGNOSES: End-stage renal disease on peritoneal dialysis, coronary artery disea se, anxiety, depression, diabetes mellitus type 2, and hypothyroidism. PROCEDURES DONE DURING HOSPITALIZATION: CT brain done on the day of admission showed no acute findin gs. Chest x-ray done showed no acute cardiopulmonary findings. Blood cultures x2 preliminary result s show no growth. Peritoneal fluid Gram stain is negative for any organism, no growth at 12 hours. She had a white count of 12 on the day of admission with discharge numbers of 11.8, H&H 13 and 42, an d platelet count 262 with 49% neutrophils. BUN on the day of discharge is 48, creatinine of 6.9. BN P was 383. Troponin x1 is negative. DISCHARGE MEDICATIONS: Coreg 25 mg twice daily, calcitriol 0.25 mcg p.o. daily, bupropion 100 mg twi ce daily, atorvastatin 40 mg p.o. at bedtime, aspirin 325 mg p.o. daily, vitamin D 3000 units p.o. da alicia, ferric citrate 210 mg p.o. 3 times daily, Lantus 14 units subcu q.a.m., Levaquin 250 mg once jayla ry two days a total of 4 tablets, levothyroxine 125 mcg p.o. daily, Procardia-XL 90 mg p.o. at bedtim e, Protonix 40 mg p.o. daily. ALLERGIES: CODEINE, KETOROLAC and MADISON PEPPER. DISCHARGE PLAN: Patient to record blood pressure and pulse twice daily for a period of 10 days and t o follow up with primary care physician. BRIEF COURSE DURING HOSPITALIZATION: Patient initially felt like almost passing out at her workplace and was feeling weak and tired. She had also mentioned that her previous night blood pressure was 9 7/43. Patient also has had difficulty controlling her hypertension and has been closely monitored by her primary care physician. She was essentially placed under observation. She was placed back on h er medications as her blood pressure slowly started to climb up to 210/145. She has been tolerating her medications for high blood pressure. She also had her peritoneal dialysis session last night. S he is hemodynamically stable at present. Patient needs to check her blood pressure and pulse twice d aily for a period of 10 days and to follow up with her primary care physician for any changes in medi cation. She was empirically placed on Levaquin 250 mg every 2 days for a total of 4 tablets. Her pr eliminary blood cultures are negative and her peritoneal catheter fluid is negative for Gram stain an d has had no growth at 12 hours. She had a white count of 12, but no fever or any signs of infection as such. Please see a face to face documentation for the day of discharge on [employer].
== END 2018-03-08 14:47 | disposition home or self-care (01) ==
LOC: ERS 10:25 → 2SW 13:57
PROVIDERS: ADMIT Internal Medicine; ATTEND Internal Medicine
DX: R55 Syncope and collapse (principal); I12.0 Hypertensive chronic kidney disease with stage 5 chronic kidney disease or end stage renal disease; E11.22 Type 2 diabetes mellitus with diabetic chronic kidney disease; N18.6 End stage renal disease; I25.10 Atherosclerotic heart disease of native coronary artery without angina pectoris; E03.9 Hypothyroidism, unspecified; F32.9 Major depressive disorder, single episode, unspecified; F41.9 Anxiety disorder, unspecified; F17.210 Nicotine dependence, cigarettes, uncomplicated; Z88.5 Allergy status to narcotic agent; Z88.8 Allergy status to other drugs, medicaments and biological substances; Z91.018 Allergy to other foods; Z79.82 Long term (current) use of aspirin; Z79.84 Long term (current) use of oral hypoglycemic drugs; Z79.899 Other long term (current) drug therapy; Z99.2 Dependence on renal dialysis; Z95.1 Presence of aortocoronary bypass graft; Z98.890 Other specified postprocedural states; Z82.49 Family history of ischemic heart disease and other diseases of the circulatory system; Z83.3 Family history of diabetes mellitus
CPT/HCPCS: 10060; 36415; 36416; 70450; 71045; 80048; 80053; 82550; 82553; 83880; 84484; 85025; 85060; 87040; 87070; 87205; 89051; 90945; 93005; G0257; G0378; J0360; J1644; J1815; J2001

== ENCOUNTER 2018-03-10 11:33 | Observation (INO) | payer BC, MEDICARE ==
[2018-03-10 12:12] LABS: #Basophils 0.1 thou/uL (0.0-0.2); #Eosinphils 0.7 thou/uL (0.0-0.7); #Lymphocytes 2.6 thou/uL (1.20-3.40); #Monocytes 0.7 thou/uL (0.11-0.59); #Neutrophils 5.8 thou/uL (1.40-6.50); %Eosinophils 6.8 % (0.0-10.0); %Lymphocytes 26.2 % (21.0-51.0); %Monocytes 6.8 % (0.0-10.0); %Neutrophils 59.2 % (42.0-75.0); Hemoglobin 13.5 g/dL (12.0-16.0); Mean Corpuscular HGB CONC 32.4 g/dL (32.0-36.0); Mean Corpuscular Hemoglobin 27.3 pg (27.0-31.0); Mean Corpuscular Volume 84.4 fl (81.0-99.0); Mean Platelet Volume 8.3 fL (7.4-10.4); Platelet Count 265 thou/uL (130-400); RBC Distribution Width 12.8 % (11.5-14.5); Red Blood Cell (RBC) Count 4.93 mill/uL (4.20-5.40); White Blood Cell (WBC) Count 9.8 thou/uL (4.8-10.8)
[2018-03-10 12:29] LABS: Lactic Acid 1.9 mmol/L (0.5-2.2)
[2018-03-10 12:33] LABS: CKMB 1.6 ng/mL (0-6.6); Troponin I Less than 0.010 ng/mL (< 0.028)
[2018-03-10 12:34] LABS: ALT (SGPT) 97 U/L (8-55); AST (SGOT) 36 U/L (5-34); Albumin 3.4 g/dL (3.5-5.0); Alkaline Phosphatase 139 U/L (40-150); Anion Gap 16 mmol/L (10-20); BUN (Urea Nitrogen) 47 mg/dL (9.8-20.1); Bilirubin, Total 0.4 mg/dL (0.2-1.2); CK (CPK) 112 U/L (29-168); Calc. Creatinine Clearance 0 mL/min (70-130); Calcium 8.5 mg/dL (7.8-10.44); Carbon Dioxide 21 mmol/L (22-29); Chloride 100 mmol/L (98-107); Estimated GFR-MDRD 6; Globulin 3.1 g/dL (2.4-3.5); Glucose 370 mg/dL (70-105); Potassium 5.3 mmol/L (3.5-5.1); Protein, Total 6.5 g/dL (6.0-8.3); Sodium 132 mmol/L (136-145)
--- NOTE | 2018-03-10 13:15 | RAD ---
UPRIGHT PORTABLE CHEST ONE VIEW: History: 53-year-old female with history of weakness, dizziness, and chest pain. Comparison: 03-07-18 FINDINGS: Post underlying sternotomy. Monitor leads overlie the chest. Heart size is normal. No confluent pneum onia, overt edema, or pleural effusion. Bilateral cervical ribs, larger on the right side. IMPRESSION: No significant acute process. Post underlying sternotomy. Atherosclerosis of the aorta. POS: [facility]
--- NOTE | 2018-03-10 14:16 | CT ---
BRAIN CT WITHOUT IV CONTRAST: History: 53-year-old female with history of dizziness, generalized weakness, nausea and vomiting. History of p rior right foot infection and ESRD. Comparison: 03-07-18 FINDINGS: There is no focal mass or midline shift. Small stable right parafalcine focus of ossification. Sinuse s and mastoids are clear. IMPRESSION: No significant acute intracranial process. No mass or bleed. Stable from prior study. POS: [facility]
[2018-03-10 14:51] LABS: Bilirubin Negative (Negative); Blood, Urine Small (Negative); Clarity CLOUDY (Clear); Glucose, Urine (Dipstick) 500 mg/dL (Negative); Leukocyte Negative (Negative); Nitrite Negative (Negative); Protein, Urine (Dipstick) 300 mg/dL (Neg-Trace); Specific Gravity, Urine 1.013 (1.002-1.036); Urobilinogen 0.2 mg/dL (0.2-1.0)
[2018-03-10 14:52] LABS: Bacteria/HPF None Seen HPF (None Seen); Hyaline Casts/LPF 0-3 HYALINE CAST LPF (0-3 Hyaline); Pathc Cast-AUWi Flag 0.72 (0-2.49); RBC/HPF 0-3 HPF (0-3)
[2018-03-10] MEDS ORDERED: Acetaminophen 325 MG TAB PO PRN (14:58)
[2018-03-10] MEDS ORDERED: hydrALAZINE 20 MG/ML VIAL SLOW IVP PRN (14:58)
[2018-03-10] MEDS ORDERED: Senokot 8.6 MG TAB PO PRN (14:58)
[2018-03-10] MEDS ORDERED: cloNIDine 0.1 MG TAB PO PRN (14:58)
[2018-03-10] MEDS ORDERED: Loratadine 10 MG TAB PO PRN (14:58)
[2018-03-10] MEDS ORDERED: Benzonatate 100 MG CAP PO PRN (14:58)
[2018-03-10] MEDS ORDERED: Mag-Al 1200 mg/1200 mg/30 ML UDCUP PO PRN (14:58)
[2018-03-10] MEDS ORDERED: Ondansetron HCl/PF 4 MG/2 ML Vial IVP PRN (14:58)
[2018-03-10] MEDS ORDERED: Nitroglycerin 0.4 MG TAB (25 Tab Bottle) SL PRN (14:58)
[2018-03-10] MEDS ORDERED: Calcium Carbonate 500 MG ChewTAB PO PRN (14:58)
[2018-03-10] MEDS ORDERED: Bisacodyl 5 MG TAB PO PRN (14:58)
[2018-03-10] MEDS ORDERED: Dextrose 5% in Water 1,000 ML IV PRN (15:05)
[2018-03-10] MEDS ORDERED: Dextrose 50% Abboject 50 ML SYRINGE SLOW IVP PRN (15:05)
[2018-03-10] MEDS ORDERED: HumaLOG 300 UNITS/3 ML VIAL SC PRN ×2 (15:05)
[2018-03-10 15:06] LABS: PTT 30.3 SEC (22.9-36.1); Prothrombin Time 13.5 SEC (12.0-14.7)
--- NOTE | 2018-03-10 17:40 | HP ---
DATE OF ADMISSION: 03/10/2018 PRIMARY CARE PHYSICIAN: Snehal Fitzpatrick M.D., at [facility]. CHIEF COMPLAINT: Fogginess, near syncope, difficulty finding words, headache, vomiting, dizziness, a nd paresthesias. HISTORY OF PRESENTING ILLNESS: Ms. Sommer is a 53-year-old female with past medical history of co ronary artery disease; diabetes mellitus, type 2; and end-stage renal disease, on peritoneal dialysis ; who came to the emergency room with above-mentioned complaint. History is mainly obtained by the edwin lei herself and electronic medical records have been reviewed. The patient was recently admitted to our facility on 03/07/2018 and was discharged on 03/08/2018. During that hospitalization, she had similar presenting symptoms. She underwent CT scan of the brain at that time, which was unremarkabl e. Her symptoms were thought to be secondary to labile hypertension with some component of orthostas is as well. She was observed overnight and was discharged with better control of her blood pressure, to be followed with primary care physician. However, she reports that she has been feeling unwell since her discharge 2 days ago. She is almost slept through the weekend and she was back at work today. She started to feel very weak and dizzy an d as if her brain is in a fog. She also has been having a headache for the last 2-3 days. She had o ne episode of vomiting this morning. She also found that she was having a hard time finding her word s and it is difficult for her to keep her balance. She also noticed that maybe her speech was somewh at slurred. She also had a feeling that her face was swollen. She is compliant with her medications and her peritoneal dialysis every day. When these symptoms did not get any better, she got a work e xcuse from her physician, Dr. Kenny and she was told to report to the emergency room. In the emergency room, she was quite hypertensive with systolic blood pressure almost to 190 and pinzon tolic over 100. She underwent a general examination including a chest x-ray and a CT scan of the bra in, which were once again unremarkable. She is now being admitted for further evaluation and rule ou t stroke. PAST MEDICAL HISTORY: 1. Diabetes mellitus, type 2. 2. Coronary artery disease, status post 4-vessel CABG in 05/2017. 3. History of end-stage renal disease, on peritoneal dialysis. 4. Hypertension. PAST SURGICAL HISTORY: 1. CABG. 2. Prior gastric sleeve surgery. 3. Bilateral feet surgery. 4. Hysterectomy. 5. Left shoulder surgery. ALLERGIES: ULTRAM, CODEINE, MADISON PEPPER. 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 She is trying to quit smoking, is down to few cigarettes a day. No history of drug or alcohol abuse. FAMILY HISTORY: Mother at the age of 56 years and had history of NM and diabetes. Father of NM. CURRENT MEDICATIONS: Levothyroxine 125 mcg daily, carvedilol 25 mg b.i.d., nifedipine 90 mg daily, a torvastatin 40 mg daily, bupropion 100 mg b.i.d. Ecotrin 325 mg daily, she did take this medicine in the morning. Lantus 14 units once a day, vitamin D2 daily, and Protonix 40 mg daily. REVIEW OF SYSTEMS: The following complete review of systems was negative, unless otherwise mentioned in the HPI or below: Constitutional: Weight loss or gain, ability to conduct usual activities. Sk in: Rash, itching. Eyes: Double vision, pain. ENT/Mouth: Nose bleeding, neck stiffness, pain, te nderness. Cardiovascular: Palpitations, dyspnea on exertion, orthopnea. Respiratory: Shortness of breath, wheezing, cough, hemoptysis, fever or night sweats. Gastrointestinal: Poor appetite, abdom inal pain, heartburn, nausea, vomiting, constipation, or diarrhea. Genitourinary: Urgency, frequenc y, dysuria, nocturia. Musculoskeletal: Pain, swelling. Neurologic/Psychiatric: Anxiety, depressio n. Allergy/Immunologic: Skin rash, bleeding tendency. It is negative except for those mentioned in the history and physical. A 12-point review of systems was done and is negative except for those me ntioned in the history and physical. LABORATORY DATA: Her CBC is unremarkable. PT, PTT, INR are normal. Serum chemistry shows sodium of 132, potassium 5.3, bicarbonate 21, BUN 47, creatinine 7.56, blood sugar 370. Lactic acid normal. Cardiac enzymes normal. BNP 293, AST 36, ALT 97 with normal bilirubin and alkaline phosphatase and c reatine kinase. CT scan of the brain by my review has no evidence to suggest any acute hemorrhage or any recent infarctions. Chest x-ray is negative for any pulmonary effusion, edema or infiltrate. T welve-lead EKG by my review shows inverted T leads in the lead aVL. Left ventricular hypertrophy not iced. QTC interval 462, otherwise normal sinus rhythm without any acute ST or T-wave changes. PHYSICAL EXAMINATION: VITAL SIGNS: Upon presentation, blood pressure 187/108, pulse of 84, respirations 20, saturating 98% on room air, temperature 98.1. GENERAL: No acute distress, awake, alert, oriented x3, sitting comfortably in bed, appears well-groo med. HEENT: Mucous membrane is moist and pink. No oropharyngeal exudate or erythema. Head is normocepha lic, atraumatic. Pupils are equal, reactive to light and accommodation. Extraocular movements are i ntact. NECK: Supple without any lymphadenopathy, JVD or bruit. CHEST: Clear to auscultation without any wheezing, rales, or rhonchi. Rate and rhythm is regular wi thout any murmur, rubs or gallops. ABDOMEN: Soft, nontender, nondistended with positive bowel sounds. Peritoneal dialysis catheter sit e looks clean without any surrounding erythema or tenderness or edema. NEUROLOGIC: Nonfocal. Cranial nerves II-XII grossly intact. Muscle strength 5/5 in all 4 extremiti es. Sensation intact. No dysdiadochokinesia. No facial droop, no slurred speech noticed. SKIN: Free of any rashes or bruises. Feels warm and dry to touch. PSYCHIATRIC: Normal affect. IMPRESSION AND PLAN: 1. Near syncope, generalized weakness, slurred speech and difficulty finding words. The patient's s ymptoms are quite concerning for the transient ischemic attack. She already is on aspirin, which reyna l be continued and we will continue her statin as well. We will initiate stroke workup including an MRI of the brain and repeat the echocardiogram and carotid Doppler ultrasounds, which were done last year. We will also consult Neurology for further recommendations. She most likely will benefit from starting on Plavix along with aspirin given her history of coronary artery disease as well. She is a high risk patient. She will be admitted under observation status on stroke floor. Further managem ent will depend upon her clinical course. She is currently hemodynamically stable. Neuro checks puja quently will be instituted. We will also have stroke team to see this patient. At this time, she is not having any neurological deficits on my exam. 2. Uncontrolled hypertension and hypertensive urgency. This patient has history of labile blood pre ssure. We will check orthostatics and adjust her medications as needed. We will request her nephrol ogist, Dr. Kenny to follow along for blood pressure management as well. 3. End-stage renal disease on hemodialysis. She will be restarted on her hemodialysis while she is here. We will consult her welder production line combination for same. 4. History of coronary artery disease, status post coronary artery bypass graft. We will resume her beta annette, statin, aspirin at this time. The patient is not on any RUFUS inhibitor for some reason . We will continue with her nifedipine; however. 5. Diabetes mellitus, type 2. We will resume her home dose of Lantus once the dose is confirmed and meanwhile, we will start her on insulin sliding scale with frequent Accu-Cheks. 6. Code status: FULL CODE. Discussed with the patient. DISPOSITION: Ms. Sommer is currently being admitted to the hospital to rule out stroke given her TIA-like symptoms. She is currently under observation status and further management will depend upon her clinical course.
--- NOTE | 2018-03-10 19:00 | ULT ---
BILATERAL CAROTID DUPLEX ULTRASOUND: HISTORY: TIA. TECHNIQUE: Real-time color Doppler evaluation of the right and left carotid systems was performed. FINDINGS: On the right side, peak systolic velocities of the common carotid were 71 cm per second. Internal ca rotid velocities were 60 cm per second and external carotid velocities were 69 cm per second. On the left side, the peak systolic velocities of the common carotid were 64 cm per second, the inter nal carotid velocities were 68 cm per second, and the external carotid velocities were 61 cm per seco nd. Vertebral flow is antegrade bilaterally. IMPRESSION: No evidence of hemodynamically significant stenosis of either internal carotid artery. POS: RUEL
[2018-03-10] MEDS ORDERED: hydrALAZINE 20 MG/ML VIAL ONE (20:07)
[2018-03-10] MEDS ORDERED: NIFEdipine XL 90 MG TAB PO SCH (21:00)
[2018-03-10] MEDS ORDERED: Atorvastatin Calcium 40 MG TAB PO SCH (21:00)
[2018-03-10] MEDS ORDERED: Carvedilol 25 MG TAB PO SCH (21:00)
[2018-03-10] MEDS: Heparin 5,000 UNITS/ML VIAL SC SCH (23:02)
[2018-03-10] MEDS: buPROPion HCl 100 MG TAB PO SCH (23:03)
[2018-03-11 01:24] VITALS: BMI 22.6
[2018-03-11 05:47] LABS: #Basophils 0.1 thou/uL (0.0-0.2); #Eosinphils 0.8 thou/uL (0.0-0.7); #Lymphocytes 2.9 thou/uL (1.20-3.40); #Monocytes 0.7 thou/uL (0.11-0.59); #Neutrophils 3.8 thou/uL (1.40-6.50); %Basophils 1.4 % (0.0-1.0); %Eosinophils 9.5 % (0.0-10.0); %Lymphocytes 35.3 % (21.0-51.0); %Neutrophils 45.8 % (42.0-75.0); Hemoglobin 12.2 g/dL (12.0-16.0); Mean Corpuscular HGB CONC 32.3 g/dL (32.0-36.0); Mean Corpuscular Volume 83.6 fl (81.0-99.0); Mean Platelet Volume 8.3 fL (7.4-10.4); Platelet Count 238 thou/uL (130-400); RBC Distribution Width 12.9 % (11.5-14.5); Red Blood Cell (RBC) Count 4.52 mill/uL (4.20-5.40); White Blood Cell (WBC) Count 8.3 thou/uL (4.8-10.8)
[2018-03-11 05:59] LABS: Anion Gap 14 mmol/L (10-20); BUN (Urea Nitrogen) 48 mg/dL (9.8-20.1); Calc. Creatinine Clearance 9 mL/min (70-130); Calcium 8.2 mg/dL (7.8-10.44); Carbon Dioxide 23 mmol/L (22-29); Chloride 102 mmol/L (98-107); Estimated GFR-MDRD 6; Glucose 306 mg/dL (70-105); Potassium 4.3 mmol/L (3.5-5.1); Sodium 135 mmol/L (136-145)
[2018-03-11] MEDS ORDERED: Levothyroxine Sodium 125 MCG TAB PO SCH (06:00)
[2018-03-11 06:02] LABS: Cardiac Risk 2.7 (Less than 4.5)
[2018-03-11] MEDS ORDERED: Carvedilol 25 MG TAB PO SCH (08:45)
[2018-03-11] MEDS ORDERED: Aspirin 325 mg Enteric Coated Tablet PO SCH (09:00)
[2018-03-11] MEDS ORDERED: INSULIN GLARGINE HUM REC ANLOG 14 UNIT SC SCH (09:00)
[2018-03-11] MEDS ORDERED: Insulin Detemir 100 UNITS/ML 14 UNITS in Pre-Filled Syringe 1 EACH SC SCH (09:00)
[2018-03-11] MEDS ORDERED: Famotidine 20 MG TAB PO SCH (09:00)
--- NOTE | 2018-03-11 09:05 | PRG ---
DATE OF SERVICE: 03/11/2018 SUBJECTIVE: This is a 53-year-old female being seen for end-stage renal disease. The patient tolera jose francisco PD well. Denies any nausea, vomiting or chest pain. PHYSICAL EXAMINATION: GENERAL: Patient is awake, alert. VITAL SIGNS: Afebrile, pulse 75, breathing 16, blood pressure 126/83. OBJECTIVE: See above. Awake, alert, in no acute distress. GENERAL APPEARANCE AND MENTAL STATUS: Fair. HEAD/NECK: Normocephalic. Atraumatic. EYES: EOMI. No deformity. EARS: Clear. No ulcers. NOSE: Intact. No lesions. MOUTH: Clear. No discharge. THROAT: Clear. No exudate. LUNGS: Clear. No crackles. CARDIAC: S1, S2. No rub. ABDOMEN: Benign. BS+. GENITALIA/RECTUM: Marx absent. BACK/EXTREMITIES: Edema 0+ Ulcer- NEUROLOGICAL: Alert and motor intact. SKIN: Rash- Bruise- LYMPHATICS: Edema- Ulcer- LABORATORY: Hemoglobin is 12.2. ASSESSMENT AND RECOMMENDATIONS: 1. Stage 6 chronic kidney disease. Continue peritoneal dialysis. 2. Hypertension, stable. 3. Anemia, stable. 4. Hyperkalemia, stable and hypertension. Would recommend holding off on the patient's nifedipine and will not pull any more fluid off.
--- NOTE | 2018-03-11 09:32 | CON ---
DATE OF CONSULTATION: 03/10/2015 at 10:00 p.m. REASON FOR CONSULTATION: End-stage renal disease on maintenance peritoneal dialysis. HISTORY OF PRESENT ILLNESS: This is a very pleasant 53-year-old female who presented to the hospital after near syncope and altered mentation. The patient has had hypotensive episodes. The patient at this time denies any nausea, vomiting or chest pain. The patient does peritoneal dialysis and is ru nning without any problems. Recent blood pressure medication was adjusted. PAST MEDICAL HISTORY: Diabetes mellitus, coronary artery disease, CABG, end-stage renal disease on p eritoneal dialysis, history of CABG, gastric sleeve surgery, feet surgery, hysterectomy, shoulder rep air. ALLERGIES: Reviewed. HOME MEDICATIONS: List reviewed. SOCIAL HISTORY: No alcohol or drug use. REVIEW OF SYSTEMS: Fifteen point review of systems was performed and negative except positives noted above. GENERAL: Weakness- HEAD: Headache- NECK: No swelling or lumps. NOSE: No epistaxis or discharge. EYES: No diplopia or pain. RESPIRATORY: Dyspnea- CARDIOVASCULAR: Chest pain- GASTROINTESTINAL: Nausea- /BUSINESS STRATEGIST: Hematuria- MUSCULOSKELETAL: No joint pain. NEUROPSYCHIATIC SYSTEMS: No suicidal ideation. No ideation. SKIN: Denies any rash or ulcer. CONSTITUTIONAL: No fever or chills. PHYSICAL EXAMINATION: GENERAL: Patient is awake, alert. VITAL SIGNS: Afebrile, pulse 84, breathing at 16, blood pressure 187/108. OBJECTIVE: See above. Awake, alert, in no acute distress. GENERAL APPEARANCE AND MENTAL STATUS: Fair. HEAD/NECK: Normocephalic. Atraumatic. EYES: EOMI. No deformity. EARS: Clear. No ulcers. NOSE: Intact. No lesions. MOUTH: Clear. No discharge. THROAT: Clear. No exudate. LUNGS: Clear. No crackles. CARDIAC: S1, S2. No rub. ABDOMEN: Benign. BS+. GENITALIA/RECTUM: Marx absent. BACK/EXTREMITIES: Edema 0+ Ulcer- NEUROLOGICAL: Alert and motor intact. SKIN: Rash- Bruise- LYMPHATICS: Edema- Ulcer- LABORATORY DATA: Potassium 5.4. ASSESSMENT AND RECOMMENDATIONS: 1. Stage 6 chronic disease. We will plan urgent peritoneal dialysis the nurse poultry boner was called an d a machine was arranged 2. Anemia, stable. 3. Hypertension. Titrate home medication. The patient is at her dry weight. There is no edema. 4 . Medication based on GFR, I would recommend decreasing the dose of Wellbutrin to 100 mg daily or ch anging it to another agent. 5. Medications; decrease the dose of bupropion to 100 mg daily. 6. Presyncope. Management per primary team.
[2018-03-11] MEDS: buPROPion HCl 100 MG TAB PO SCH (10:23)
[2018-03-11] MEDS: Heparin 5,000 UNITS/ML VIAL SC SCH (10:24)
[2018-03-11] MEDS ORDERED: ALPRAZolam 0.25 MG TAB PO PRN (12:22)
[2018-03-11 15:56] VITALS: BP 113/63; TEMP 97.9
--- NOTE | 2018-03-11 17:42 | MRI ---
NONCONTRAST MRI BRAIN: Date: 03-11-18 History: TIA. Patient has dizziness and generalized weakness with nausea and vomiting. Comparison: CT head 03-10-18. FINDINGS: A few scattered punctate and patchy areas of FLAIR and T2 weighted signal intensity in the periventri cular and subcortical white matter which are nonspecific but likely reflective of mild chronic small vessel ischemic changes. There is no evidence of an acute infarction. Septum pellucidum and third nelson tricle are on the midline. Ventricular system is normal in size, shape, and position for the degree o f sulcal atrophy. There is mild cerebral volume loss. Appropriate flow voids are demonstrated at the base of the brain. Minimal mucosal thickening is seen in the sphenoid sinus, bilateral maxillary antrum, and ethmoidal a ir cells. The orbits and skull base have a normal MRI appearance. There is a low signal intensity structure seen in a parafalcine location and supraventricular locatio n shown represent prominent calcification on recent CT scan. This may represent either a prominent du ral based calcification or very small calcified meningioma measuring 8 mm. There is susceptibility artifact in the region of the C3 vertebral body which may be related to post- surgical changes. IMPRESSION: 1. Findings likely attributable to mild chronic small vessel ischemic changes. 2. Cerebral volume loss. 3. No acute intracranial abnormality is demonstrated. 4. Minimal sinus disease. 5. Prominent dural based calcification versus small meningioma measuring less than 8 mm in a parafalc ine supraventricular location. POS: GIOVANNY
[2018-03-11] MEDS ORDERED: NIFEdipine XL 30 MG TAB PO SCH (21:00)
[2018-03-12] MEDS ORDERED: Insulin Glargine 14 UNITS in Pre-Filled Syringe 1 EACH SC SCH (09:00)
--- NOTE | 2018-03-12 16:30 | DIS ---
DATE OF ADMISSION: 03/10/2018 DATE OF DISCHARGE: 03/11/2018 CONDITION AT THE TIME OF DISCHARGE: Stable and improved. DISCHARGE DIAGNOSES: 1. Orthostatic hypotension. 2. Cerebrovascular accident/transient ischemic attack ruled out. 3. History of supine hypertension. 4. History of multiple transient ischemic attacks in the past. 5. Diabetes mellitus type 2. 6. Coronary artery disease, status post 4-vessel CABG 2016. 7. End-stage renal disease on peritoneal dialysis. CONSULTATIONS INHOUSE. Dr. Grimaldo from Nephrology. PROCEDURES DONE IN THE HOSPITAL: Include, 1. CT scan of the brain upon presentation, which is unremarkable. 2. MRI of the brain which shows chronic small vessel ischemic changes, but nothing acute. 3. Carotid Doppler ultrasound, which is negative for any hemodynamically significant stenosis bilate rally. 4. Transthoracic echocardiogram which shows EF of 55%-60% with concentric moderate left ventricular hypertrophy. HOSPITAL COURSE: Ms. Sommer is a 53-year-old female who was recently admitted to our facility 2-3 days ago with similar symptoms came back to the emergency room with complaints of fogginess, near sy ncope, dizziness, difficulty finding words, headache, vomiting, dizziness, and paraesthesias. During her last hospitalization, she had undergone a CT scan of the brain which was unremarkable. She was found to have labile hypertension. She was observed overnight and was discharged for better blood pr essure control. She came back to the emergency room with the similar symptoms when she continued to feel worse. Upon presentation, she was quite hypertensive. She reported that she has these episodes of extremely hig h and then extremely low blood pressure on walking around. She was admitted for stroke workup and ru le out other causes of her presenting symptoms. Please see admission history and physical for furthe r detail. The patient was found to be significantly orthostatic during her hospitalization. Her blood pressure dropped from supine at 112/59, 218/54 on sitting, and 281/48 on standing. She was continued on lorraine toneal dialysis and I discussed her orthostatic hypotension and supine hypertension with her nephrolo gist, Dr. Kenny. It is difficult to address in one hospitalization, but she was told to reduce her nifedipine to 30 mg p.o. b.i.d. This was recently increased to 90 mg from 60 mg at bedtime. At thi s time, she split it in 2 doses. She is instructed to take an extra tablet of 30 mg of nifedipine at night if her systolic blood pressure is more than 160. Throughout her hospitalization, she remained normotensive with her average systolic blood pressure in the 130s and diastolic in the 60s. Her ech ocardiogram and MRI did not show any significant abnormality. TIA was ruled out. She was seen and examined on the day of discharge. PHYSICAL EXAMINATION: VITAL SIGNS: On 03/11/2018, temperature 97.9, pulse of 75, respirations 16, saturating 98% on room a ir, blood pressure 113/63. GENERAL: No acute distress, awake, alert, oriented x3. CHEST: Clear to auscultation bilaterally. Rate and rhythm is regular. LABORATORY DATA: Lipid panel is unremarkable. Blood sugar 228. Urinalysis showed some squamous epi thelial cells along with WBCs. CBC unremarkable. At this time, most likely reason of her presenting recurrent symptom is severe orthostatic hypotensio n. She is educated about lifestyle changes and wearing MADHU hose whenever she is at work and standing and adjusting her blood pressure medication. She will further discuss this with the crop picker, Yelitza Castle at [facility] as well as her e learning specialist, Dr. Kenny in the outpatient setting. All q uestions were answered and the patient was discharged home in a hemodynamically stable condition.
== END 2018-03-11 17:53 | disposition home or self-care (01) ==
LOC: ERS 11:33 → 2SE 14:58
PROVIDERS: ADMIT Internal Medicine; ATTEND Internal Medicine
DX: I95.1 Orthostatic hypotension (principal); I12.0 Hypertensive chronic kidney disease with stage 5 chronic kidney disease or end stage renal disease; E11.22 Type 2 diabetes mellitus with diabetic chronic kidney disease; N18.6 End stage renal disease; D63.1 Anemia in chronic kidney disease; I25.10 Atherosclerotic heart disease of native coronary artery without angina pectoris; I16.0 Hypertensive urgency; E87.5 Hyperkalemia; Z86.73 Personal history of transient ischemic attack (TIA), and cerebral infarction without residual deficits; Z88.5 Allergy status to narcotic agent; Z88.6 Allergy status to analgesic agent; Z91.018 Allergy to other foods; Z79.4 Long term (current) use of insulin; Z79.899 Other long term (current) drug therapy; Z95.1 Presence of aortocoronary bypass graft; Z99.2 Dependence on renal dialysis
CPT/HCPCS: 36415; 36416; 70450; 70551; 71045; 80048; 80053; 80061; 81003; 81015; 82553; 83605; 83880; 84484; 85025; 85610; 85730; 90945; 93005; 93306; 93880; 96374; G0257; G0378; G8978-GP-CJ; G8979-GP-CH; G8987-GO-CJ; G8988-GO-CI; J0360; J1644; J1815

== ENCOUNTER 2018-06-13 12:31 | Emergency (ER) | payer BC, MEDICARE ==
[2018-06-13 13:53] LABS: #Basophils 0.1 thou/uL (0.0-0.2); #Eosinphils 0.5 thou/uL (0.0-0.7); #Lymphocytes 2.4 thou/uL (1.20-3.40); #Monocytes 0.8 thou/uL (0.11-0.59); #Neutrophils 9.8 thou/uL (1.40-6.50); %Basophils 0.6 % (0.0-1.0); %Eosinophils 3.9 % (0.0-10.0); %Lymphocytes 17.6 % (21.0-51.0); %Neutrophils 71.9 % (42.0-75.0); Hemoglobin 11.7 g/dL (12.0-16.0); Mean Corpuscular Hemoglobin 28.7 pg (27.0-31.0); Mean Corpuscular Volume 84.4 fL (78.0-98.0); Mean Platelet Volume 7.7 fL (7.4-10.4); Platelet Count 294 thou/uL (130-400); RBC Distribution Width 12.7 % (11.5-14.5); Red Blood Cell (RBC) Count 4.07 mill/uL (4.20-5.40); White Blood Cell (WBC) Count 13.6 thou/uL (4.8-10.8)
[2018-06-13 14:22] LABS: ALT (SGPT) 15 U/L (8-55); AST (SGOT) 12 U/L (5-34); Albumin 3.4 g/dL (3.5-5.0); Alkaline Phosphatase 117 U/L (40-150); Anion Gap 19 mmol/L (10-20); BUN (Urea Nitrogen) 59 mg/dL (9.8-20.1); Bilirubin, Total 0.5 mg/dL (0.2-1.2); CK (CPK) 73 U/L (29-168); Calc. Creatinine Clearance 0 mL/min (70-130); Calcium 8.2 mg/dL (7.8-10.44); Carbon Dioxide 20 mmol/L (22-29); Chloride 99 mmol/L (98-107); Estimated GFR-MDRD 5; Globulin 3.1 g/dL (2.4-3.5); Glucose 363 mg/dL (70-105); Potassium 4.1 mmol/L (3.5-5.1); Protein, Total 6.5 g/dL (6.0-8.3); Sodium 134 mmol/L (136-145)
[2018-06-13 14:28] LABS: CKMB 2.1 ng/mL (0-6.6); Troponin I Less than 0.010 ng/mL (< 0.028)
[2018-06-13] MEDS ORDERED: Acetaminophen 500 MG TAB ONE (14:56)
--- NOTE | 2018-06-13 16:34 | RAD ---
PORTABLE AP CHEST RADIOGRAPH: Date: 06-13-18 History: Cough, syncope at work with hypotension. The patient on peritoneal dialysis. Generalized wea kness. Comparison: 05-29-17 FINDINGS: Post-surgical changes related to median sternotomy are again noted. Post-surgical change lower cervic al spine and left shoulder are also again seen with surgical clips again seen overlying the right upp er quadrant. Cardiac silhouette and pulmonary vasculature are within normal limits. The lungs remain clear. There has been no interval change from the prior exam. IMPRESSION: No acute cardiopulmonary process. POS: [facility]
[2018-06-13] MEDS ORDERED: Insulin Regular 300 UNITS/3 ML VIAL ONE (17:26)
[2018-06-13] MEDS ORDERED: Potassium Chloride 20 MEQ TAB ONE (17:26)
== END 2018-06-13 18:26 | disposition home or self-care (01) ==
LOC: ERS 12:31
DX: E11.65 Type 2 diabetes mellitus with hyperglycemia (principal); R55 Syncope and collapse; E03.9 Hypothyroidism, unspecified; I25.2 Old myocardial infarction; I10 Essential (primary) hypertension; Z86.73 Personal history of transient ischemic attack (TIA), and cerebral infarction without residual deficits; Z99.2 Dependence on renal dialysis; F32.9 Major depressive disorder, single episode, unspecified; F41.9 Anxiety disorder, unspecified; F17.210 Nicotine dependence, cigarettes, uncomplicated; Z79.899 Other long term (current) drug therapy; Z79.4 Long term (current) use of insulin
CPT/HCPCS: 36415; 36416; 71046; 80053; 82010; 82550; 82553; 84484; 85025; 93005; 94760; 96361; 96374; J1815

== ENCOUNTER 2018-06-15 23:36 | Observation (INO) | payer BC, MEDICARE ==
[2018-06-16 00:57] LABS: #Basophils 0.1 thou/uL (0.0-0.2); #Eosinphils 0.6 thou/uL (0.0-0.7); #Lymphocytes 2.7 thou/uL (1.20-3.40); #Monocytes 0.6 thou/uL (0.11-0.59); %Basophils 1.4 % (0.0-1.0); %Lymphocytes 26.5 % (21.0-51.0); %Monocytes 6.3 % (0.0-10.0); %Neutrophils 59.8 % (42.0-75.0); Hemoglobin 11.7 g/dL (12.0-16.0); Mean Corpuscular HGB CONC 33.8 g/dL (32.0-36.0); Mean Corpuscular Hemoglobin 28.4 pg (27.0-31.0); Mean Corpuscular Volume 84.1 fL (78.0-98.0); Mean Platelet Volume 7.9 fL (7.4-10.4); Platelet Count 300 thou/uL (130-400); RBC Distribution Width 12.7 % (11.5-14.5); Red Blood Cell (RBC) Count 4.11 mill/uL (4.20-5.40); White Blood Cell (WBC) Count 10.1 thou/uL (4.8-10.8)
[2018-06-16 01:03] LABS: INR-International Normal Ratio 0.9; PTT 26.7 SEC (22.9-36.1); Prothrombin Time 12.5 SEC (12.0-14.7)
[2018-06-16 01:17] LABS: ALT (SGPT) 17 U/L (8-55); AST (SGOT) 12 U/L (5-34); Albumin 3.6 g/dL (3.5-5.0); Alkaline Phosphatase 119 U/L (40-150); Anion Gap 21 mmol/L (10-20); BUN (Urea Nitrogen) 61 mg/dL (9.8-20.1); Bilirubin, Total 0.4 mg/dL (0.2-1.2); Calc. Creatinine Clearance 0 mL/min (70-130); Calcium 8.6 mg/dL (7.8-10.44); Carbon Dioxide 18 mmol/L (22-29); Chloride 99 mmol/L (98-107); Estimated GFR-MDRD 4; Globulin 3.3 g/dL (2.4-3.5); Glucose 373 mg/dL (70-105); Potassium 3.4 mmol/L (3.5-5.1); Protein, Total 6.9 g/dL (6.0-8.3); Sodium 135 mmol/L (136-145)
[2018-06-16] MEDS ORDERED: Ondansetron HCl/PF 4 MG/2 ML Vial IVP PRN (07:17)
[2018-06-16] MEDS ORDERED: Acetaminophen 325 MG TAB PO PRN ×2 (07:17→20:54)
[2018-06-16] MEDS ORDERED: Ondansetron ODT 4 MG TAB PO PRN (07:17)
[2018-06-16 08:21] VITALS: BMI 23.8
[2018-06-16] MEDS ORDERED: Dextrose 50% Abboject 50 ML SYRINGE SLOW IVP PRN (09:39)
[2018-06-16] MEDS ORDERED: Dextrose 5% in Water 1,000 ML IV PRN (09:39)
[2018-06-16 11:01] LABS: #Basophils 0.1 thou/uL (0.0-0.2); #Eosinphils 0.5 thou/uL (0.0-0.7); #Monocytes 0.9 thou/uL (0.11-0.59); #Neutrophils 5.3 thou/uL (1.40-6.50); %Basophils 0.9 % (0.0-1.0); %Eosinophils 5.6 % (0.0-10.0); %Lymphocytes 30.2 % (21.0-51.0); %Monocytes 8.9 % (0.0-10.0); %Neutrophils 54.5 % (42.0-75.0); Hemoglobin 11.2 g/dL (12.0-16.0); Mean Corpuscular HGB CONC 34.1 g/dL (32.0-36.0); Mean Platelet Volume 7.4 fL (7.4-10.4); Platelet Count 298 thou/uL (130-400); RBC Distribution Width 12.7 % (11.5-14.5); Red Blood Cell (RBC) Count 3.88 mill/uL (4.20-5.40); White Blood Cell (WBC) Count 9.8 thou/uL (4.8-10.8)
[2018-06-16 11:34] LABS: Anion Gap 20 mmol/L (10-20); BUN (Urea Nitrogen) 59 mg/dL (9.8-20.1); Calc. Creatinine Clearance 7 mL/min (70-130); Calcium 8.2 mg/dL (7.8-10.44); Carbon Dioxide 19 mmol/L (22-29); Chloride 98 mmol/L (98-107); Estimated GFR-MDRD 5; Glucose 269 mg/dL (70-105); Potassium 3.6 mmol/L (3.5-5.1); Sodium 133 mmol/L (136-145)
--- NOTE | 2018-06-16 12:57 | CON ---
DATE OF CONSULTATION: 06/16/2018 NEPHROLOGY CONSULTATION REASON FOR CONSULTATION: End-stage renal disease on maintenance peritoneal dialysis. HISTORY OF PRESENT ILLNESS: This is a very pleasant 53-year-old female who presented to the hospital after an episode of syncope and bright red blood. The patient did put PD fluid in the abdomen. The patient at this time denies any nausea, vomiting or chest pain. PAST MEDICAL HISTORY: Diabetes mellitus, coronary artery disease, CABG, end-stage renal disease, gas tric sleeve surgery, hip surgery, hysterectomy, shoulder repair. ALLERGIES: Reviewed. HOME MEDICATIONS: List reviewed. SOCIAL HISTORY: No alcohol, drugs. FAMILY HISTORY: Negative for ESRD. HOME MEDICATIONS: Reviewed. HOSPITAL MEDICATIONS: Reviewed. ALLERGIES: Reviewed. REVIEW OF SYSTEMS: A 12-point review of systems was performed and was negative except for positives noted above. GENERAL: Weakness- HEAD: Headache- NECK: No swelling or lumps. NOSE: No epistaxis or discharge. EYES: No diplopia or pain. RESPIRATORY: Dyspnea- CARDIOVASCULAR: Chest pain- GASTROINTESTINAL: Nausea- /TIE IN HAND: Hematuria- MUSCULOSKELETAL: No joint pain. NEUROPSYCHIATIC SYSTEMS: No suicidal ideation. No ideation. SKIN: Denies any rash or ulcer. CONSTITUTIONAL: No fever or chills. PHYSICAL EXAMINATION: GENERAL: Patient is awake, alert. VITAL SIGNS: Afebrile, pulse 72, breathing 16, blood pressure 131/66. HEAD/NECK: Normocephalic. Atraumatic. EYES: EOMI. No deformity. EARS: Clear. No ulcers. NOSE: Intact. No lesions. MOUTH: Clear. No discharge. THROAT: Clear. No exudate. LUNGS: Clear. No crackles. CARDIAC: S1, S2. No rub. ABDOMEN: Benign. BS+. GENITALIA/RECTUM: Marx absent. BACK/EXTREMITIES: Edema 0+ Ulcer- NEUROLOGICAL: Alert and motor intact. SKIN: Rash- Bruise- LYMPHATICS: Edema- Ulcer- LABORATORY DATA: Show hemoglobin 11.2, potassium 3.6. ASSESSMENT AND RECOMMENDATIONS: 1. Stage 6 chronic disease. Plan peritoneal dialysis. Remove ultrafiltration and PD fluid from abd omen. 2. Anemia, stable. 3. Medications based on GFR are appropriate. 4. Syncope, etiology unclear. Management per primary team.
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
[2018-06-16] MEDS: HumaLOG 300 UNITS/3 ML VIAL SC PRN (18:59)
[2018-06-16 20:29] LABS: BF Color Colorless; BF WBC/Nonhematics Ct. - Manua 4 /cumm; Body Fluid Source Dialysate Fluid; Clarity Clear (Clear); Tube # EDTA
[2018-06-16 20:30] LABS: BF RBC Count - Manual 72 /cumm
[2018-06-16] MEDS ORDERED: ALPRAZolam 0.5 MG TAB PO PRN (20:55)
[2018-06-16] MEDS ORDERED: NIFEdipine XL 30 MG TAB PO SCH (21:00)
[2018-06-16] MEDS ORDERED: Carvedilol 25 MG TAB PO SCH (21:00)
[2018-06-16] MEDS ORDERED: Atorvastatin Calcium 40 MG TAB PO SCH (21:00)
[2018-06-16] MEDS ORDERED: Bupropion 100 MG SR TAB PO SCH (21:00)
[2018-06-16] MEDS ORDERED: HumaLOG 300 UNITS/3 ML VIAL SC PRN (21:47)
[2018-06-17] MEDS ORDERED: Sodium Chloride 0.9% 250 ML 250 ML IVPB SCH (00:15)
[2018-06-17] MEDS ORDERED: hydrOXYzine 25 MG TAB PO PRN (00:47)
[2018-06-17 04:25] LABS: #Basophils 0.1 thou/uL (0.0-0.2); #Eosinphils 0.6 thou/uL (0.0-0.7); #Lymphocytes 3.8 thou/uL (1.20-3.40); #Monocytes 0.8 thou/uL (0.11-0.59); #Neutrophils 4.2 thou/uL (1.40-6.50); %Basophils 1.3 % (0.0-1.0); %Lymphocytes 39.8 % (21.0-51.0); %Monocytes 8.1 % (0.0-10.0); %Neutrophils 44.9 % (42.0-75.0); Hemoglobin 10.6 g/dL (12.0-16.0); Mean Corpuscular HGB CONC 34.9 g/dL (32.0-36.0); Mean Corpuscular Hemoglobin 29.1 pg (27.0-31.0); Mean Corpuscular Volume 83.4 fL (78.0-98.0); Mean Platelet Volume 7.6 fL (7.4-10.4); Platelet Count 266 thou/uL (130-400); RBC Distribution Width 12.3 % (11.5-14.5); Red Blood Cell (RBC) Count 3.63 mill/uL (4.20-5.40); White Blood Cell (WBC) Count 9.4 thou/uL (4.8-10.8)
[2018-06-17 04:39] LABS: Anion Gap 20 mmol/L (10-20); BUN (Urea Nitrogen) 59 mg/dL (9.8-20.1); Calc. Creatinine Clearance 8 mL/min (70-130); Calcium 8.6 mg/dL (7.8-10.44); Carbon Dioxide 19 mmol/L (22-29); Chloride 100 mmol/L (98-107); Estimated GFR-MDRD 5; Glucose 244 mg/dL (70-105); Potassium 3.3 mmol/L (3.5-5.1); Sodium 136 mmol/L (136-145)
[2018-06-17] MEDS: HumaLOG 300 UNITS/3 ML VIAL SC PRN (05:46)
[2018-06-17 08:13] VITALS: BP 122/65; TEMP 98.5
--- NOTE | 2018-06-17 08:54 | PRG ---
DATE OF SERVICE: 06/17/2018 SUBJECTIVE: This is a 53-year-old female being seen for end-stage renal disease. The patient denies any nausea, vomiting or chest pain. PHYSICAL EXAMINATION: GENERAL: Patient is awake, alert. VITAL SIGNS: Afebrile, pulse 64, breathing at 16, blood pressure 121/63. HEAD/NECK: Normocephalic. Atraumatic. EYES: EOMI. No deformity. EARS: Clear. No ulcers. NOSE: Intact. No lesions. MOUTH: Clear. No discharge. THROAT: Clear. No exudate. LUNGS: Clear. No crackles. CARDIAC: S1, S2. No rub. ABDOMEN: Benign. BS+. GENITALIA/RECTUM: Marx absent. BACK/EXTREMITIES: Edema 0+ Ulcer-. NEUROLOGICAL: Alert and motor intact. SKIN: Rash- Bruise- LYMPHATICS: Edema- Ulcer-. LABORATORY DATA: Show hemoglobin 10.6, potassium 3.3. ASSESSMENT AND RECOMMENDATIONS: 1. Stage 6 chronic kidney disease. Continue peritoneal dialysis. 2. Hypertension, stable. 3. Anemia, stable. 4. Orthostatic hypotension. We would recommend changing the Coreg to 12.5 q.12 hours and starting l isinopril 10-20 mg based on blood pressures.
--- NOTE | 2018-06-21 13:24 | EKG ---
Test Reason : Blood Pressure : / mmHG Vent. Rate : 063 BPM Atrial Rate : 063 BPM P-R Int : 192 ms QRS Dur : 094 ms QT Int : 486 ms P-R-T Axes : -15 000 071 degrees QTc Int : 497 ms Normal sinus rhythm Possible Inferior infarct , age undetermined Anteroseptal infarct , age undetermined Abnormal ECG Confirmed by JOSE PEREZ M.D. ([id number]), science editor IRMA HURTADO ([id number]) on 06/21/2018 1:24:24 PM Referred By: Confirmed By:JOSE PEREZ M.D.
== END 2018-06-17 11:16 | disposition home or self-care (01) ==
LOC: ERS 23:36 → 2SW 06-16 07:06
PROVIDERS: ADMIT Internal Medicine; ATTEND Internal Medicine
DX: K62.5 Hemorrhage of anus and rectum (principal); E11.22 Type 2 diabetes mellitus with diabetic chronic kidney disease; N18.6 End stage renal disease; D63.1 Anemia in chronic kidney disease; R55 Syncope and collapse; I25.10 Atherosclerotic heart disease of native coronary artery without angina pectoris; F17.210 Nicotine dependence, cigarettes, uncomplicated; R41.82 Altered mental status, unspecified; E03.9 Hypothyroidism, unspecified; E78.5 Hyperlipidemia, unspecified; Z79.899 Other long term (current) drug therapy; Z91.018 Allergy to other foods; Z88.5 Allergy status to narcotic agent; Z88.8 Allergy status to other drugs, medicaments and biological substances; Z66 Do not resuscitate; Z99.2 Dependence on renal dialysis; Z95.1 Presence of aortocoronary bypass graft; Z98.84 Bariatric surgery status
CPT/HCPCS: 36415; 36416; 80048; 80053; 82274; 84443; 85025; 85610; 85730; 86850; 86900; 86901; 87070; 87205; 89051; 90945; 93005; G0257; G0378; J7050; Q0162

== ENCOUNTER 2018-11-15 17:21 | Emergency (ER) | payer BC, MEDICARE ==
[2018-11-15] MEDS ORDERED: Adacel (T-DAP) 0.5 ML SYRINGE ONE (17:55)
== END 2018-11-15 18:36 | disposition home or self-care (01) ==
LOC: ERS 17:21
DX: S61.211A Laceration without foreign body of left index finger without damage to nail, initial encounter (principal); E03.9 Hypothyroidism, unspecified; I10 Essential (primary) hypertension; E11.9 Type 2 diabetes mellitus without complications; Z86.73 Personal history of transient ischemic attack (TIA), and cerebral infarction without residual deficits; I25.2 Old myocardial infarction; F32.9 Major depressive disorder, single episode, unspecified; F41.9 Anxiety disorder, unspecified; F17.210 Nicotine dependence, cigarettes, uncomplicated; W26.8XXA Contact with other sharp object(s), not elsewhere classified, initial encounter
CPT/HCPCS: 12001; 90471; 90715

== ENCOUNTER 2019-02-20 00:07 | Emergency (ER) | payer BC, MEDICARE ==
--- NOTE | 2019-02-20 08:21 | CT ---
PRELIMINARY REPORT/[facility]/EMERGENCY AFTER HOURS PROCEDURE: EXAM: CT Head Without Contrast EXAM DATE/TIME: 02/20/2019 1:04 AM CLINICAL HISTORY: 54 years old, female; Injury or trauma; Initial encounter; Abrasion; Not specified; Patient HX: Er 3. 54 y/o F presents after ground level mechanical fall, tripping over a curb outside [place]. She reports she fell on her knees, R hand, and face. TECHNIQUE: Imaging protocol: Axial computed tomography images of the head/brain without contrast. COMPARISON: No relevant prior studies available. FINDINGS: Brain: No acute findings. No hemorrhage. No significant white matter disease. No edema. Small right a nterior parafalcine calcification/ossification-meningioma. Ventricles: No acute findings. No ventriculomegaly. Bones/joints: No acute fracture. Sinuses: No acute findings. No significant air-fluid levels. Mastoid air cells: No acute findings. No mastoid effusion. Soft tissues: No acute findings. IMPRESSION: No acute traumatic injury. Thank you for allowing us to participate in the care of your patient. Dictated and Authenticated by: Gilmer Mistry MD 02/20/2019 1:48 AM Central Time ([place] & [place]) FINAL REPORT EMERGENCY AFTER HOURS CT BRAIN WITHOUT CONTRAST: FINDINGS/IMPRESSION: I agree with the above provided preliminary interpretation from [facility]. No acute intracranial hemorrhage or mass effect.
--- NOTE | 2019-02-20 08:44 | RAD ---
LEFT KNEE FOUR VIEWS: INDICATIONS: Fall with knee pain. FINDINGS: There is irregularity at the lateral plateau of the proximal tibia. The evaluation is limited due to artifact and indistinctness of osseous structures due to the technique of the exam. Mild prominence of the suprapatellar joint space is suggested. IMPRESSION: Subtle, indistinct irregularity at the lateral tibial plateau. Evaluation is limited. The possibilit y of an acute, slightly impacted fracture at this region may be present and should be correlated with CT examination as followup, in light of the clinical concern. Telephone call placed to the Emergency Dept. charge nurse, regarding the findings and recommendations . CODE T
--- NOTE | 2019-02-20 08:45 | RAD ---
RIGHT KNEE FOUR VIEWS: INDICATIONS: Fall with knee pain. FINDINGS: Positioning of the knee joint does limit evaluation of the osseous structures, as the joint compartme nts are not reliably visualized. There is no significant joint capsular distention. No obvious acut e fracture. IMPRESSION: Limited examination. No definite acute fracture of the right knee. POS: [facility]
--- NOTE | 2019-02-20 09:07 | RAD ---
RIGHT WRIST FOUR VIEWS: COMPARISON: 11/18/2017 FINDINGS: Remote fracture deformity of the distal right radius with associated sclerosis is present. Alignment is near anatomic. There is osteoarthritis. IMPRESSION: Posttraumatic deformity of the distal right radius. POS: C
== END 2019-02-20 01:32 | disposition home or self-care (01) ==
LOC: ERS 00:07
DX: S60.811A Abrasion of right wrist, initial encounter (principal); M25.561 Pain in right knee; M25.562 Pain in left knee; E03.9 Hypothyroidism, unspecified; I25.2 Old myocardial infarction; E11.9 Type 2 diabetes mellitus without complications; I10 Essential (primary) hypertension; Z86.73 Personal history of transient ischemic attack (TIA), and cerebral infarction without residual deficits; F32.9 Major depressive disorder, single episode, unspecified; F41.9 Anxiety disorder, unspecified; F17.210 Nicotine dependence, cigarettes, uncomplicated; Z79.899 Other long term (current) drug therapy; Z79.82 Long term (current) use of aspirin; Z79.4 Long term (current) use of insulin
CPT/HCPCS: 70450

== ENCOUNTER 2019-07-24 11:57 | Day surgery (SDC) | payer MEDICARE ==
[2019-07-24] MEDS ORDERED: PROPOFOL 200 MG/20 ML VIAL ONE (13:51)
[2019-07-24] MEDS ORDERED: Glycopyrrolate 0.2 MG/ML 5 ML SYRINGE ONE (13:51)
[2019-07-24] MEDS ORDERED: PHENYLEPHRINE-NS 100 MCG/ML 10 ML SYRINGE ONE (13:51)
[2019-07-24] MEDS ORDERED: Rocuronium Bromide 10 MG/ML (10ML VIAL) ONE (13:51)
[2019-07-24] MEDS ORDERED: ePHEDrine 50 MG/ML VIAL ONE (13:51)
[2019-07-24] MEDS ORDERED: Lidocaine 1% PF 5 ML VIAL ONE (13:51)
[2019-07-24] MEDS ORDERED: Ondansetron PF 4 MG/2 ML Vial ONE (13:51)
[2019-07-24] MEDS ORDERED: Fentanyl 100 MCG/2 ML VIAL ONE (15:32)
[2019-07-24] MEDS ORDERED: Heparin 10,000 UNITS/1 ML VIAL ONE (15:34)
[2019-07-24] MEDS ORDERED: Bupivacaine/Epinephrine 0.25% 30 ML VIAL ONE (15:34)
[2019-07-24] MEDS ORDERED: Labetalol HCl 100 MG/20 ML VIAL ONE (17:03)
[2019-07-24] MEDS ORDERED: Ondansetron HCl/PF 4 MG/2 ML Vial IVP PRN (17:06)
[2019-07-24] MEDS ORDERED: Promethazine HCl 25 MG/ML VIAL IM PRN (17:06)
[2019-07-24] MEDS ORDERED: Promethazine HCl 25 MG/ML VIAL SLOW IVP PRN (17:06)
--- NOTE | 2019-07-25 11:29 | PDOC.OP ---
Operative Note - Operative Note Operative Note: PROCEDURE: Revision of peritoneal dialysis catheter SURGEON: Reema Reich M.D. DATE: 07/24/2019 PREOPERATIVE DIAGNOSIS: Malfunction of peritoneal dialysis catheter POSTOPERATIVE DIAGNOSIS: Malfunction of peritoneal dialysis catheter HISTORY: Patient with pain at the exit site of her peritoneal dialysis catheter since shortly after doing some heavy lifting. She thinks she may have pulled the catheter. The cuff was now partially visible at the exit site. Revision of the external portion of the peritoneal dialysis catheter was recommended. PROCEDURE IN DETAIL: After informed consent was obtained and appropriate preoperative antibodies administered the patient was taken to the operating on she was placed in supine position and general anesthesia was administered. She was prepped and draped in standard sterile fashion and the old peritoneal dialysis catheter excluded from the field with a Tegaderm. The subcutaneous portion of the catheter was palpable medial to the exit site. Local anesthesia was infused and a skin incision made. Dissection was carried down to the catheter which was clamped and divided. The tract leading to the external exit site was closed with 3-0 Monocryl. There was no evidence of infection at this level. A peritoneal dialysis catheter extension kit was obtained and the external portion tunneled superiorly laterally and then inferiorly exiting superior to the old exit site. The peritoneal dialysis catheter dog food shredder operator was drawn through this incision positioning the external cuff near the exit site and the internal cuff near the counter incision. The tubing was spliced the old tubing and flushed with heparin. The subcutaneous tissues were closed with 3-0 Monocryl suture and the skin incisions were closed with 4-0 Monocryl suture. Dermabond dressings were applied at the counter incision and the new exit site and the new PD catheter was dressed with gauze and Tegaderm. The old AV catheter was then removed. Local anesthesia was infused to the tissues around the partially visible cuff and the cuff dissected free and removed. A gauze and Tegaderm dressing was placed at this site. The patient was extubated and taken to recovery in good condition. Estimated blood loss was minimal. There were no complications. There were no specimens.
== END 2019-07-24 19:35 | disposition home or self-care (01) ==
LOC: SDC 11:57
PROVIDERS: ATTEND Surgery
PROC: 0WHG33Z Insertion of Infusion Device into Peritoneal Cavity, Percutaneous Approach (ICD-10-PCS; principal; 2019-07-24)
DX: T85.611A Breakdown (mechanical) of intraperitoneal dialysis catheter, initial encounter (principal); I12.9 Hypertensive chronic kidney disease with stage 1 through stage 4 chronic kidney disease, or unspecified chronic kidney disease; E11.22 Type 2 diabetes mellitus with diabetic chronic kidney disease; N18.9 Chronic kidney disease, unspecified; I25.2 Old myocardial infarction; E07.9 Disorder of thyroid, unspecified; E78.00 Pure hypercholesterolemia, unspecified; G43.909 Migraine, unspecified, not intractable, without status migrainosus; M79.7 Fibromyalgia; F32.9 Major depressive disorder, single episode, unspecified; Z79.4 Long term (current) use of insulin; Z79.82 Long term (current) use of aspirin; Z79.899 Other long term (current) drug therapy; Z88.5 Allergy status to narcotic agent; Z88.6 Allergy status to analgesic agent; Z91.018 Allergy to other foods; Z95.1 Presence of aortocoronary bypass graft; Z98.84 Bariatric surgery status
CPT/HCPCS: J0690; J1644; J3010

== ENCOUNTER 2019-08-10 19:39 | Emergency (ER) | payer MEDICARE ==
--- NOTE | 2019-08-16 00:12 | EKG ---
Test Reason : HYPERTENSIVE Blood Pressure : / mmHG Vent. Rate : 077 BPM Atrial Rate : 077 BPM P-R Int : 166 ms QRS Dur : 086 ms QT Int : 422 ms P-R-T Axes : -19 -14 067 degrees QTc Int : 477 ms Normal sinus rhythm Septal infarct , age undetermined Inferior infarct , age undetermined Abnormal ECG Confirmed by LORENZO HU ([id number]), graphic editor RUBEN MILLER ([id number]) on 08/16/2019 12:12:11 AM Referred By: Confirmed By:LORENZO HU
== END 2019-08-10 22:11 | disposition home or self-care (01) ==
LOC: ERS 19:39
DX: M54.41 Lumbago with sciatica, right side (principal); E03.9 Hypothyroidism, unspecified; I25.2 Old myocardial infarction; I10 Essential (primary) hypertension; E11.9 Type 2 diabetes mellitus without complications; Z86.73 Personal history of transient ischemic attack (TIA), and cerebral infarction without residual deficits; F41.9 Anxiety disorder, unspecified; F17.210 Nicotine dependence, cigarettes, uncomplicated; Z79.899 Other long term (current) drug therapy; Z79.82 Long term (current) use of aspirin; Z79.4 Long term (current) use of insulin
CPT/HCPCS: 93005

== ENCOUNTER 2019-08-31 16:01 | Inpatient (IN) | payer MEDICARE ==
[~2019-08-31 16:01] MED LIST changes: -Bupivacaine HCl 0.5%/Epinephrine 1:200,000/PF 30 ml Vial ONE; -Bupivacaine PF 0.5% 30 ML VIAL ONE; +ISOVUE-370 76%-LOCM 1 ML ONE; -Lidocaine 1% PF 5 ML VIAL ONE
--- NOTE | 2019-08-31 16:46 | CT ---
CT head noncontrast HISTORY: Left leg and arm numbness. COMPARISON: 02/20/2019. FINDINGS: There is no evidence of acute intracranial hemorrhage or infarct. Diffuse cortical atrophy and mild chronic ischemic small vessel disease are similar in appearance to the previous exam. Densely calcified rounded lesion along the anterior falx is stable. There is no mass effect or shift of midline structures. Visualized paranasal sinuses remain well-aerated. IMPRESSION: Chronic-type findings are stable. No acute intracranial abnormalities are demonstrated
[2019-08-31 17:29] LABS: #Basophils 0.1 thou/uL (0.0-0.2); #Eosinphils 0.5 thou/uL (0.0-0.7); #Lymphocytes 2.8 thou/uL (1.20-3.40); #Monocytes 0.7 thou/uL (0.11-0.59); #Neutrophils 6.1 thou/uL (1.40-6.50); %Lymphocytes 27.1 % (21.0-51.0); %Monocytes 6.7 % (0.0-10.0); %Neutrophils 60.2 % (42.0-75.0); Hemoglobin 10.9 g/dL (12.0-16.0); Mean Corpuscular HGB CONC 31.9 g/dL (32.0-36.0); Mean Corpuscular Hemoglobin 27.1 pg (27.0-31.0); Mean Corpuscular Volume 84.8 fL (78.0-98.0); Mean Platelet Volume 7.6 fL (7.4-10.4); Platelet Count 327 thou/uL (130-400); RBC Distribution Width 12.4 % (11.5-14.5); Red Blood Cell (RBC) Count 4.02 mill/uL (4.20-5.40); White Blood Cell (WBC) Count 10.2 thou/uL (4.8-10.8)
--- NOTE | 2019-08-31 17:45 | RAD ---
Chest AP view INDICATION: Left-sided arm numbness and diarrhea COMPARISON: March 10, 2018 FINDINGS: Lungs:The lungs are clear Cardiac silhouette:The cardiomediastinal silhouette appears within normal limits. Pulmonary vasculature:Normal Pleural spaces:No pleural effusion or pneumothorax is demonstrated. Upper abdomen:No abnormality seen. Osseous structures: No acute osseous abnormality. Additional findings:There is a stable ACDF, post-CABG change and cholecystectomy change present. IMPRESSION: No acute cardiopulmonary abnormality.
[2019-08-31 17:58] LABS: ALT (SGPT) 35 U/L (8-55); AST (SGOT) 31 U/L (5-34); Albumin 3.5 g/dL (3.5-5.0); Alkaline Phosphatase 110 U/L (40-110); Anion Gap 16 mmol/L (10-20); BUN (Urea Nitrogen) 37 mg/dL (9.8-20.1); Bilirubin, Total 0.3 mg/dL (0.2-1.2); Calc. Creatinine Clearance 0 mL/min (70-130); Calcium 7.2 mg/dL (7.8-10.44); Carbon Dioxide 25 mmol/L (22-29); Chloride 99 mmol/L (98-107); Estimated GFR-MDRD 3; Globulin 2.6 g/dL (2.4-3.5); Glucose 136 mg/dL (70-105); Potassium 3.3 mmol/L (3.5-5.1); Protein, Total 6.1 g/dL (6.0-8.3); Sodium 137 mmol/L (136-145)
[2019-08-31 18:13] LABS: CKMB 2.4 ng/mL (0-6.6)
--- NOTE | 2019-08-31 19:07 | CT ---
CTA OF THE HEAD WITH AND WITHOUT IV CONTRAST AND 3-D REFORMATTED IMAGING. CTA OF THE NECK WITH IV CONTRAST AND 3-D REFORMATTED IMAGING. INDICATION: Left-sided numbness COMPARISON: Noncontrast CT the brain from 4:38 PM on August 31, 2019 FINDINGS: CTA OF THE HEAD WITH AND WITHOUT CONTRAST: CTA OF THE BRAIN: Right ICA: There is moderate calcified involving the distal cavernous and supraclinoid right ICA wit hout definite hemodynamically significant stenosis. Right MCA: Patent. Right LUH: Patent. ACOM: Patent. Left ICA: There is moderate calcification involving the cavernous and supraclinoid left ICA without definite hemodynamically significant stenosis. Left MCA: Patent. Left LUH: Patent. PCOMs: Patent. Vertebral arteries: Patent Basilar Artery: Patent. imaging system administrator: Patent. Incidentals: There is a parafalcine calcification suspicious for tiny meningioma. No abnormal enhanc ement is grossly evident. CTA OF THE NECK WITH CONTRAST: Right CCA: Patent. Right ICA: Patent. Right Subclavian: Patent. Right Vertebral Artery: Mild narrowing involving the origin and proximal aspect of the right vertebr al artery. Left CCA: Patent. Left ICA: Patent. Left Subclavian: Patent. Left Vertebral Artery: Patent. Aerodigestive tract: Clear. Parotids/Submandibular/Thyroid glands: Normal. Lymph nodes: No pathologically enlarged lymph nodes. Lung Apices: Clear. Bones: There is a ACDF spanning C4-C6. There is retrolisthesis of C3 on C4 which is likely degenerat sandra. Incidentals: None. IMPRESSION: 1. No hemodynamically significant stenosis, occlusion or aneurysmal formation.
[2019-08-31] MEDS ORDERED: Aspirin 325 MG TAB ONE (21:31)
[2019-09-01 00:57] VITALS: BMI 23.8
--- NOTE | 2019-09-01 10:21 | CT ---
CTA OF THE HEAD WITH AND WITHOUT IV CONTRAST AND 3-D REFORMATTED IMAGING. CTA OF THE NECK WITH IV CONTRAST AND 3-D REFORMATTED IMAGING. INDICATION: Left-sided numbness COMPARISON: Noncontrast CT the brain from 4:38 PM on August 31, 2019 FINDINGS: CTA OF THE HEAD WITH AND WITHOUT CONTRAST: CTA OF THE BRAIN: Right ICA: There is moderate calcified involving the distal cavernous and supraclinoid right ICA wit hout definite hemodynamically significant stenosis. Right MCA: Patent. Right LUH: Patent. ACOM: Patent. Left ICA: There is moderate calcification involving the cavernous and supraclinoid left ICA without definite hemodynamically significant stenosis. Left MCA: Patent. Left LUH: Patent. PCOMs: Patent. Vertebral arteries: Patent Basilar Artery: Patent. voltage tester: Patent. Incidentals: There is a parafalcine calcification suspicious for tiny meningioma. No abnormal enhanc ement is grossly evident. CTA OF THE NECK WITH CONTRAST: Right CCA: Patent. Right ICA: Patent. Right Subclavian: Patent. Right Vertebral Artery: Mild narrowing involving the origin and proximal aspect of the right vertebr al artery. Left CCA: Patent. Left ICA: Patent. Left Subclavian: Patent. Left Vertebral Artery: Patent. Aerodigestive tract: Clear. Parotids/Submandibular/Thyroid glands: Normal. Lymph nodes: No pathologically enlarged lymph nodes. Lung Apices: Clear. Bones: There is a ACDF spanning C4-C6. There is retrolisthesis of C3 on C4 which is likely degenerat sandra. Incidentals: None. IMPRESSION: 1. No hemodynamically significant stenosis, occlusion or aneurysmal formation. Transcribed Date/Time: 09/01/2019 10:21 AM
[2019-09-01] MEDS ORDERED: Dextrose 50% Abboject 50 ML SYRINGE SLOW IVP PRN (10:26)
[2019-09-01] MEDS ORDERED: Dextrose 5% in Water 1,000 ML IV PRN (10:26)
[2019-09-01] MEDS ORDERED: Insulin Regular 300 UNITS/3 ML VIAL SC PRN ×2 (10:26)
[2019-09-01] MEDS ORDERED: hydrALAZINE 20 MG/ML VIAL SLOW IVP PRN (10:27)
[2019-09-01] MEDS ORDERED: hydrOXYzine 25 MG TAB PO PRN (10:29)
[2019-09-01] MEDS ORDERED: Bupropion 100 MG SR TAB PO SCH (10:30)
[2019-09-01] MEDS ORDERED: Aspirin 325 mg Enteric Coated Tablet PO SCH (10:30)
[2019-09-01] MEDS ORDERED: busPIRone HCl 5 MG TAB PO SCH (10:30)
[2019-09-01] MEDS ORDERED: Senokot S 8.6-50 MG TAB PO PRN (10:37)
[2019-09-01] MEDS ORDERED: Ondansetron ODT 4 MG TAB PO PRN (10:37)
[2019-09-01] MEDS ORDERED: Ondansetron PF 4 MG/2 ML Vial IVP PRN (10:37)
[2019-09-01] MEDS ORDERED: Calcium Carbonate 500 MG ChewTAB PO PRN (10:37)
[2019-09-01] MEDS ORDERED: Labetalol HCl 100 MG/20 ML VIAL SLOW IVP PRN (10:42)
[2019-09-01] MEDS ORDERED: NIFEdipine XL 30 MG TAB PO SCH (10:45)
[2019-09-01] MEDS ORDERED: Folic Acid 1 MG TAB PO SCH (10:45)
[2019-09-01] MEDS ORDERED: Calcitriol 0.25 MCG CAP PO SCH (10:45)
[2019-09-01 10:51] LABS: Anion Gap 20 mmol/L (10-20); BUN (Urea Nitrogen) 41 mg/dL (9.8-20.1); Calc. Creatinine Clearance 5 mL/min (70-130); Calcium 7.2 mg/dL (7.8-10.44); Carbon Dioxide 21 mmol/L (22-29); Chloride 99 mmol/L (98-107); Estimated GFR-MDRD 3; Glucose 92 mg/dL (70-105); Potassium 3.5 mmol/L (3.5-5.1); Sodium 136 mmol/L (136-145)
[2019-09-01 11:15] LABS: CKMB 1.6 ng/mL (0-6.6)
[2019-09-01] MEDS: HYDROcodone/Acetaminophen 5/325 mg Tablet PO PRN ×2 (12:08→21:22)
[2019-09-01] MEDS: Calcium Acetate 667 MG CAP PO SCH ×2 (13:07→16:51)
--- NOTE | 2019-09-01 13:53 | HP ---
This patient was a left over from last night. CHIEF COMPLAINT: Stroke-like symptoms. HISTORY OF PRESENT ILLNESS: The patient is a 54-year-old female with end-stage renal disease, on peritoneal dialysis, coronary artery disease, status post CABG, hypertension, hyperlipidemia, and diabetes mellitus type 2, presented to the emergency room with above complaints. Yesterday around 8:30 a.m., the patient had sudden onset of dizziness, vertigo, headache, visual blurring, along with left-sided numbness. There was also some right-sided numbness reported. Her speech was slurry. She describes the right-sided numbness as heaviness. She had difficulty making a sandwich or sending text due to heaviness. There was also some confusion. Her symptoms progressively got worse, for which she presented to the emergency room. She denies any double vision, seizure, or syncope. Headache was generalized. In the emergency room, her initial vital signs showed temperature 97.4, respirations of 15, pulse rate of 74 with a blood pressure 129/77, O2 saturation 100% on room air. Her deficit significantly improved while in the emergency room. Her NIH score at this time is 1.1. She currently takes 325 aspirin on a daily basis. PAST MEDICAL HISTORY: 1. End-stage renal disease, on peritoneal dialysis. 2. Coronary artery disease status post CABG. 3. Diabetes mellitus type 2. 4. Hypertension. 5. Hyperlipidemia. 6. History of autonomic dysfunction with orthostatic hypotension. 7. Hypothyroidism. 8. Tobacco dependence. PAST SURGICAL HISTORY: 1. Coronary artery bypass grafting in 2017. 2. Gastric sleeve surgery. 3. Total hysterectomy. 4. Right shoulder surgery. 5. Bunionectomy. 6. x2. 7. Cholecystectomy. 8. Cardiac catheterization. CODE STATUS: Full code. Her son is the surrogate decision maker. FAMILY HISTORY: Heart disease runs in her family. One brother of stroke. Cancer runs in her family. SOCIAL HISTORY: She continues to smoke occasionally. She drinks alcohol socially. No drug use. REVIEW OF SYSTEMS: All other review of systems was reviewed and were found negative. CURRENT HOME MEDICATIONS: 1. Aspirin 325 mg daily. 2. Zoloft 25 mg daily. 3. Lipitor 40 mg nightly. 4. Protonix 40 mg daily. 5. Lyrica 25 mg b.i.d. 6. Procardia XL 30 mg 3 times a day. 7. Toprol-XL 25 mg daily. 8. Levothyroxine 137 mcg daily. 9. Hydroxyzine as needed. 10. Sensipar 30 mg daily. 11. Folic acid 1 tablet daily. 12. Calcitriol 0.25 mcg daily. 13. BuSpar 5 mg b.i.d. 14. Bupropion 200 mg in the morning and 100 nightly. 15. Vitamin D3 11117 units every 7 days. 16. [place] as needed. PHYSICAL EXAMINATION: VITAL SIGNS: As discussed above. GENERAL: A 54-year-old female in no apparent distress. HEENT: Head, atraumatic and normocephalic. Sclerae anicteric. Moist mucous membranes. No oral lesion. NECK: Supple. No JVD appreciated. No carotid bruit. LUNGS: Clear to auscultation bilaterally. No wheezing, rales, or rhonchi. HEART: S1 and S2 present. Regular rate and rhythm. No murmurs, rubs, or gallops appreciated. ABDOMEN: Soft, nontender. Bowel sounds present. EXTREMITIES: No edema or calf tenderness. NEUROLOGIC: Examination was grossly nonfocal. There is questionable numbness over the left forearm. Cranial nerves 2 through 12 are normal on examination. Power was 5/5 in all extremities. PSYCHIATRIC: Alert, awake and oriented x3. SKIN: Warm and dry. LYMPH NODE: No palpable lymph nodes in the neck. PERIPHERAL VASCULAR: Radial pulses palpable bilaterally. MUSCULOSKELETAL: No joint swelling or tenderness. LABORATORY FINDINGS: Troponin 0.084 with normal CK-MB. Repeat troponin was 0.182, CK-MB was 1.6. Creatinine was 13.02 with potassium 3.3. Hemoglobin 10.9 with hematocrit 34.1. IMAGING STUDIES: EKG by my review showed sinus rhythm with left axis deviation with nonspecific ST-T wave changes. CT scan of the brain by my review was negative for acute CVA. It showed chronic findings. Chest x-ray by my review was negative for infiltrate. CT scan of the head with and without contrast was negative for hemodynamically significant stenosis. IMPRESSION: 1. Transient ischemic attack, rule out cerebrovascular accident. 2. End-stage renal disease, on peritoneal dialysis. 3. Diabetes mellitus type 2, diet controlled. 4. Hypothyroidism. 5. Hypertension with history of autonomic dysfunction in the past. 6. Hyperlipidemia. 7. Depression, mild, stable. 8. Coronary artery disease status post coronary artery bypass grafting. 9. Chronic anemia secondary to renal insufficiency. 10. Elevated troponin secondary to demand ischemia/type 2 myocardial infarction. 11. Hypokalemia. 12. Tobacco dependence .. PLAN: 1. The patient will be monitored in the stroke unit. We will schedule MRI of the brain as well as echocardiogram. We will get fasting lipid profile in a.m. We will repeat troponin in a.m. Continue aspirin. Consult Neurology. Resume home medications. Due to autonomic dysfunction, we will check orthostatic vitals in a.m. Mild insulin sliding scale. 2. Plan of care was discussed with the patient in detail. She stated understanding. Job ID: [id number]
--- NOTE | 2019-09-01 14:09 | MRI ---
MRI Brain WO Con: 09/01/2019 10:28 AM CLINICAL HISTORY: Stroke. COMPARISON: 03/11/2018 FINDINGS: Extra axial spaces: Stable susceptibility related to calcified extra-axial mass overlying the medial right posterior frontal convexity, likely a small calcified meningioma. Acute infarction: Acute lacunar infarction involves the left cerebellar hemisphere. Ventricular system: Stable in size and morphology for the patient's age. Basal cisterns: Normal. Cerebral parenchyma: Mild chronic microvascular ischemic disease. Midline shift: None. Brainstem: Normal. Paranasal sinuses:Clear IMPRESSION:Acute lacunar infarction of left cerebellar hemisphere
--- NOTE | 2019-09-01 16:37 | CON ---
DATE OF CONSULTATION: 09/01/2019 CONSULTING PHYSICIAN: Jaret Allen MD REASON FOR CONSULTATION: End-stage renal disease evaluation and care. REASON FOR ADMISSION: Weakness and numbness. HISTORY OF PRESENT ILLNESS: This is a 54-year-old female with history of end-stage renal disease, on peritoneal dialysis nightly; hypothyroidism; coronary artery disease; hypertension; type 2 diabetes; came to the hospital with above complaints. The patient was not feeling well. The patient had PD the night before and was not feeling well, was not feeling normal, and then called her family members and they checked on her, and she was having hard time remembering things, doing stuff, and also felt numbness and heaviness in her arms, and was brought to the hospital. The patient gets dialysis. The patient missed dialysis last night being at the ED. No nausea or vomiting. No chest pain or palpitation. The patient feels better today. The patient also had blurry vision. PAST MEDICAL HISTORY: Positive for end-stage renal disease, on peritoneal dialysis; coronary artery disease; hypertension; type 2 diabetes; and CVA. PAST SURGICAL HISTORY: Cholecystectomy, PD catheter placement, coronary artery bypass graft surgery, and hysterectomy. HOME MEDICATIONS: 1. . 2. Sensipar. 3. Bupropion. 4. Calcitriol. 5. Dialyvite. 6. Pantoprazole. 7. Nifedipine. ALLERGIES: CODEINE, KETORALAC, MORPHINE, AND TRAMADOL. SOCIAL HISTORY: No smoking, alcohol, or illicit drugs. FAMILY HISTORY: No history of any kidney disease. REVIEW OF SYSTEMS: CONSTITUTIONAL: Negative for weight loss or gain, ability to conduct usual activities. SKIN: Negative for rash, itching. EYES: Negative for double vision, pain. ENT/MOUTH: Negative for nose bleeding, neck stiffness, pain, tenderness. CARDIOVASCULAR: Negative for palpitations, dyspnea on exertion, orthopnea. RESPIRATORY: Negative for shortness of breath, wheezing, cough, hemoptysis, fever or night sweats. GASTROINTESTINAL: Negative for poor appetite, abdominal pain, heartburn, nausea, vomiting, constipation, or diarrhea. GENITOURINARY: Negative for urgency, frequency, dysuria, nocturia. MUSCULOSKELETAL: Negative for pain, swelling. NEUROLOGIC/PSYCHIATRIC: Negative for anxiety, depression. ALLERGY/IMMUNOLOGIC: Negative for skin rash, bleeding tendency. PHYSICAL EXAMINATION: GENERAL: Reveals a thin-built female, in no apparent distress. VITAL SIGNS: Temperature 97.6, pulse 67, respiratory rate 16, and blood pressure 173/77. HEENT: Atraumatic and normocephalic. Oral mucosa moist. NECK: Supple. CV: S1 and S2 heard. Rate and rhythm are regular. RESPIRATORY: Clear. GASTROINTESTINAL: Abdomen is soft. MUSCULOSKELETAL: No edema. DERMATOLOGIC: No skin rash. NEUROLOGIC: Alert and awake. PSYCHIATRIC: Mood and affect normal. LABORATORY DATA: Hemoglobin 10.9. Potassium is 3.5, BUN is 41, creatinine 13.5. ASSESSMENT AND PLAN: 1. End-stage renal disease. Plan is to continue on peritoneal dialysis as tolerated. 2. Edema, controlled. 3. Hypertension. We will resume her blood pressure medications and monitor. 4. Chronic anemia. We will have Epogen as tolerated. Plan to continue PD as tolerated. PD nurse notified. Continue to monitor blood pressure. Resume her medication. The patient missed dialysis last night. We will continue to follow. Thank you for the consult. Job ID: [id number]
[2019-09-01] MEDS: NIFEdipine XL 30 MG TAB PO SCH ×2 (16:51→21:21)
[2019-09-01] MEDS ORDERED: Heparin 5,000 UNITS/ML VIAL SC SCH (21:00)
[2019-09-01] MEDS: Atorvastatin Calcium 40 MG TAB PO SCH (21:21)
[2019-09-01] MEDS: Bupropion 100 MG SR TAB PO SCH (21:21)
[2019-09-01] MEDS: Pregabalin 25 MG CAP PO SCH (21:21)
[2019-09-01] MEDS: busPIRone HCl 5 MG TAB PO SCH (21:27)
[2019-09-02] MEDS: Acetaminophen 325 MG TAB PO PRN (00:44)
[2019-09-02] MEDS ORDERED: Levothyroxine Sodium 100 MCG TAB PO SCH (06:00)
[2019-09-02 06:20] LABS: CKMB 1.2 ng/mL (0-6.6)
[2019-09-02 06:21] LABS: Cardiac Risk 2.7 (Less than 4.5)
[2019-09-02] MEDS: Levothyroxine Sodium 25 MCG TAB PO SCH (06:44)
[2019-09-02] MEDS: HYDROcodone/Acetaminophen 5/325 mg Tablet PO PRN ×2 (06:44→13:58)
[2019-09-02] MEDS: Levothyroxine Sodium 112 MCG TAB PO SCH (06:44)
[2019-09-02] MEDS ORDERED: Cinacalcet HCl 30 MG TAB PO SCH (09:00)
[2019-09-02] MEDS: busPIRone HCl 5 MG TAB PO SCH ×2 (09:12→21:08)
[2019-09-02] MEDS: Calcitriol 0.25 MCG CAP PO SCH (09:13)
[2019-09-02] MEDS: Aspirin 325 mg Enteric Coated Tablet PO SCH (09:13)
[2019-09-02] MEDS: NIFEdipine XL 30 MG TAB PO SCH ×3 (09:15→21:06)
[2019-09-02] MEDS: Calcium Acetate 667 MG CAP PO SCH ×3 (09:16→21:24)
[2019-09-02] MEDS: Folic Acid 1 MG TAB PO SCH (09:16)
[2019-09-02] MEDS: Bupropion 100 MG SR TAB PO SCH ×2 (10:33→21:08)
[2019-09-02] MEDS: Pregabalin 25 MG CAP PO SCH ×2 (11:11→21:06)
--- NOTE | 2019-09-02 11:32 | PRG ---
DATE OF SERVICE: 09/02/2019 SUBJECTIVE: Patient was seen and examined at bedside and overnight events noted. Patient denies any shortness of breath or chest pain or palpitation. No history of nausea or vomiting or diarrhea or fever or chills or cramps. OBJECTIVE: GENERAL: This is thin-built female, in no acute distress. VITAL SIGNS: Temperature respiratory rate 18, and blood pressure 132/63. HEENT: Atraumatic, normocephalic. Oral mucosa is moist NECK: Supple. CARDIOVASCULAR: S1, S2 heard. Rate and rhythm regular. RESPIRATORY: Clear to auscultation. GASTROINTESTINAL: Abdomen is soft. MUSCULOSKELETAL: No tenderness. No edema. DERMATOLOGIC: No skin rash. NEUROLOGIC: Alert and awake and oriented X3. No focal neurologic deficits. Moving all the extremities. PSYCHIATRIC: Mood and affect normal. LABORATORY DATA: ASSESSMENT AND PLAN: 1. End-stage renal disease, continue on peritoneal dialysis. 2. Hypertension, stable. 3. Edema, controlled. 4. Chronic anemia. We will monitor labs and continue PD as tolerated. Follow with Neurology. Job ID: [id number]
--- NOTE | 2019-09-02 11:45 | PDOC.HOSPP ---
- Subjective Encounter Date: 09/02/19 Encounter Time: 11:00 Subjective: Patient seen and examined for Acute CVA. No new focal deficits. Still has dizziness with some balance issues. Neck pain - chronic. No new complaints. No overnight events - Objective Vital Signs & Weight: Vital Signs (12 hours) Temp Pulse Resp BP BP BP BP 09/02/19 10:40 129/64 127/60 09/02/19 09:15 65 124/64 09/02/19 07:55 97.4 F L 66 16 132/63 09/02/19 04:01 97.4 F L 63 16 106/51 L 09/02/19 00:08 98.2 F 74 16 107/54 L BP Pulse Ox 09/02/19 10:40 138/66 09/02/19 09:15 09/02/19 07:55 98 09/02/19 04:01 99 09/02/19 00:08 99 Weight Admit Weight 143 lb 9.6 oz Weight 143 lb 9.6 oz I&O: 09/01/19 09/02/19 09/03/19 06:59 06:59 06:59 Intake Total 960 240 50 Output Total 0 260 Balance 960 240 -210 Result Diagrams: 08/31/19 17:21 09/01/19 10:25 Additional Labs: Accuchecks 09/02/19 09/02/19 09/01/19 10:36 05:50 19:26 POC Glucose 136 H 103 197 H 09/01/19 16:44 POC Glucose 72 Radiology Reviewed by me: Yes (MRI - Acute CVA) EKG Reviewed by me: Yes (Tele SR) Hospitalist ROS - Review of Systems Respiratory: denies: cough, dry, shortness of breath, hemoptysis, SOB with excertion, pleuritic pain, sputum, wheezing, other Cardiovascular: denies: chest pain, palpitations, orthopnea, paroxysmal noc. dyspnea, edema, light headedness, other Gastrointestinal: denies: nausea, vomiting, abdominal pain, diarrhea, constipation, melena, hematochezia, other Genitourinary: denies: dysuria, frequency, incontinence, hematuria, retention, other - Medication Medications: Active Medications Generic Name Dose Route Start Last Admin Trade Name Freq PRN Reason Stop Dose Admin Acetaminophen 650 mg 09/01/19 10:37 09/02/19 00:44 Tylenol PO 650 mg Q4H PRN Administration Headache/Fever/Mild Pain (1-3) Hydrocodone Bitart/Acetaminophen 1 tab 09/01/19 10:29 09/02/19 06:44 [place] 5/325 PO 1 tab Q6HR PRN Administration Pain Aspirin 325 mg 09/02/19 09:00 09/02/19 09:13 Ecotrin PO 325 mg DAILY BELA Administration Atorvastatin Calcium 40 mg 09/01/19 21:00 09/01/19 21:21 Lipitor PO 40 mg HS BELA Administration Bupropion HCl 100 mg 09/01/19 21:00 09/01/19 21:21 Wellbutrin Sr PO 100 mg HS BELA Administration Bupropion HCl 200 mg 09/02/19 09:00 09/02/19 10:33 Wellbutrin Sr PO 200 mg DAILY BELA Administration Buspirone HCl 5 mg 09/01/19 21:00 09/02/19 09:12 Buspar PO 5 mg BID BELA Administration Calcitriol 0.25 mcg 09/02/19 09:00 09/02/19 09:13 Rocaltrol PO 0.25 mcg DAILY BELA Administration Folic Acid 1 mg 09/02/19 09:00 09/02/19 09:16 Folvite PO 1 mg DAILY BELA Administration Levothyroxine Sodium 112 mcg 09/02/19 06:00 09/02/19 06:44 Synthroid PO 112 mcg 0600 BELA Administration Levothyroxine Sodium 25 mcg 09/02/19 06:00 09/02/19 06:44 Synthroid PO 25 mcg 0600 BELA Administration Metoprolol Succinate 25 mg 09/02/19 09:00 09/02/19 09:16 Toprol Xl PO 25 mg DAILY BELA Administration Nifedipine 30 mg 09/01/19 15:00 09/02/19 09:15 Procardia Xl PO Not Given TID BELA Pantoprazole Sodium 40 mg 09/02/19 09:00 09/02/19 09:16 Protonix PO 40 mg DAILY BELA Administration Pregabalin 25 mg 09/01/19 21:00 09/02/19 11:11 Lyrica PO 25 mg BID BELA Administration Sertraline HCl 25 mg 09/02/19 09:00 09/02/19 09:16 Zoloft PO 25 mg DAILY BELA Administration Sodium Chloride 10 ml 09/01/19 01:01 09/02/19 09:12 Flush - Normal Saline IVF 10 ml PRN PRN Administration Saline Flush - Exam General Appearance: NAD Neck: supple, no JVD Heart: RRR, no murmur, no gallops, no rubs Respiratory: CTAB, no wheezes, no rales, no ronchi Gastrointestinal: soft, non-tender, non-distended, normal bowel sounds Extremities: no edema Neurological: no new deficit Psychiatric: normal affect, A&O x 3 Hosp A/P - Plan DVT proph w/SCDs Acute CVA involving left cerebellum Dizziness/Ataxia due to #1 Mass on aortic valve Chronic neck pain End-stage renal disease, on peritoneal dialysis. Diabetes mellitus type 2, diet controlled. Hypothyroidism. Hypertension with history of autonomic dysfunction in the past. Hyperlipidemia. Depression, mild, stable. CAD s/p CABG. Chronic anemia secondary to renal insufficiency. Elevated troponin secondary to demand ischemia/type 2 myocardial infarction. Hypokalemia. Tobacco dependence . PLAN: Cont ASA/Statins Consult Cardiology Neuro input appreciated Cont other meds Stroke team Cont Toprol/Procardia XL with holding parameters
--- NOTE | 2019-09-02 14:59 | MRI ---
MRI CERVICAL SPINE WITHOUT CONTRAST: INDICATIONS: Neck pain. FINDINGS: Postop changes are noted. Anterior plate and screws transfix C4, C5 and C6. This produces artifact on the MRI. Degenerative changes are noted. Loss of disk space at C3-C4. Posterolisthesis at C3-C4. Fin dings at each level are described: C2-C3: Posterior disk bulge and spondylosis abut the anterior cord. C3-C4: There is a posterolisthesis measured at 2 to 3 mm. There is posterior disk bulge and spondylit ic change which impinge on and mildly compress the cord, flattening the anterior cord, resulting in m oderate central canal stenosis. There appears to be right foraminal stenosis due to facet and uncinat e hypertrophy. C4-C5: Postoperative changes. Mild posterior spondylosis abuts the anterior cord. No definite foramin al stenosis. C5-C6: Postoperative changes. Posterior spondylosis abuts the anterior cord. No definite foraminal st enosis. C6-C7: Disk bulge and spondylosis impinges on and mildly compresses and flattens the anterior cord. N o definite foraminal stenosis. Cord signal is suboptimally evaluated due to artifact on the T2 images. There is prominent motion art ifact degrading the study. No definite myelomalacia. IMPRESSION: 1. Postoperative changes at C4, C5 and C6 as described. 2. Posterolisthesis at C3-C4 with posterior disk bulge and spondylosis resulting in cord compression and central canal stenosis at this level. 3. Posterior disk bulge and spondylosis producing cord compression and central canal stenosis at C6-C 7 as noted above. POS: OFF
--- NOTE | 2019-09-02 15:11 | CON ---
DATE OF TELEMEDICINE CONSULTATION: 09/02/2019 CHIEF COMPLAINT: Dizziness. HISTORY OF PRESENT ILLNESS: The patient has severe dizziness as if she got off [id number]. She could not walk, she was off-balance, she bumped into her cleaning. By came to the ER, she felt spinning sensation. She also had slurred speech and felt wobbly the night before. She tried to make a sandwich, and she felt it was too complicate to do that. Texting was hard. She felt heavy with her hand. On the right leg, she became weaker and her left side went numb. She shares an apartment. She has some sciatica and chronic weakness of leg due to her health issues and has burning of legs when walking up to the stair. She lost muscle mass. PAST MEDICAL HISTORY: Positive for end-stage renal disease, dialysis, coronary artery bypass which was a quintuple bypass, diabetes, hypertension, hypercholesterolemia, hypothyroidism. PAST SURGICAL HISTORY: C-spine surgery in 2008 for 5 bulging disks, they fixed 3, but they could not get to the 2 on top, coronary artery bypass graft, gastric sleeve and hysterectomy, right shoulder repair. FAMILY HISTORY: Father at 60 from an DC. Mother at 56 following diabetes and heart disease. She has 5 brothers and 2 sisters, all are diabetic. One brother at 56, he had an MRSA infection and ИРИНА and had a kidney transplant and stroke. Her grandfather had a stroke. The patient has 2 children, 24 and 21, both are healthy. SOCIAL HISTORY: She lives with her family. Nonsmoker. No alcohol reported. DIAGNOSTIC DATA: So far MRI of the brain showed an acute lacune in the left cerebellar hemisphere. Echocardiogram was definitely abnormal with normal left ventricular wall thickness. She had mitral valve calcification and mild mitral regurgitation and small flailing mass on the ventricular side of the valve. Differential diagnosis is as mentioned in the report and aortic valve sclerosis. LABORATORY DATA: White count 10.2, hemoglobin 10.9, hematocrit 34.1. Lipid profile is within normal limits. Sodium 136, potassium 3.5, chloride 99, bicarb 21, BUN 41, creatinine 13.5, glucose 92. REVIEW OF SYSTEMS: PULMONARY: No shortness of breath or cough. GI: Negative for nausea, vomiting, or diarrhea. NEUROLOGICAL: Positive for dizziness. DERMATOLOGIC: Negative for skin rash. CARDIAC: Negative for chest pain or palpitations. HEMATOLOGIC: Negative for bleeding diathesis. PHYSICAL EXAMINATION: VITAL SIGNS: Blood pressure 132/62. Orthostatics were obtained after they requested. Sitting blood pressure 129/64, standing 127/60, supine 138/66. Temperature 97.4, pulse 65. GENERAL APPEARANCE: Thin-built, well-nourished, pleasant lady. CHEST: Clear, vesicular breathing. CARDIOVASCULAR: S1 and S2 heard. No murmurs. ABDOMEN: Soft and nontender. No organomegaly noted. NEUROLOGICAL: Higher intellectual functions. Normal orientation to time, place , and person. Appropriate conversation. Cranial nerve examination, normal extraocular movements. Tongue midline. Pupils are reactive to light and accommodation. Normal sensation of face bilaterally. Normal elevation of palate. Normal hearing bilaterally to finger rub. Motor examination, bulk normal, tone normal, strength 5/5 throughout in iliopsoas, hamstrings, quadriceps, ankle dorsiflexion, plantar flexion, deltoid, biceps, triceps, wrist extension and flexion, finger extension and flexion. Deep tendon reflexes 2+ throughout. Sensory, normal to touch bilaterally. Cerebellar, mild left-sided incoordination in the upper extremities. Only lower extremities were normal. IMPRESSION: The patient is a 54-year-old lady with multiple cardiac risk factors and diabetes, hypertension, hypercholesterolemia, all contributing to stroke risk. At this time, her examination showed mild left-sided coordination corresponding to the acute lacune seen on this MRI. Her symptoms though were more suggestive of posterior circulation vascular defect, which was not found on her CTA. At this time, due to presence of C-spine disease, she might have kinked the artery when she looked up and had dizziness in the posterior circulation symptoms. Her diagnosis is most consistent with acute cerebrovascular accident secondary to hypertension or diabetes. She has cardiac disease based on the echocardiogram. RECOMMENDATIONS: Please increase her aspirin 325 mg per day. Agree with statin. Please consult Cardiology regarding cardiac disease and whether this lady needs ИРИНА and anticoagulation for the calcification on the valve, which could be a source of thrombus in the future. I will request an MRI of the C-spine to review her neck and make sure there is no obstruction to vascular flow, although CTA is negative. Her MRI may be abnormal with C-spine disease, which might need attention as well. I will follow up as of tomorrow. Job ID: [id number] [facility]
[2019-09-02] MEDS: Atorvastatin Calcium 40 MG TAB PO SCH (21:06)
[2019-09-02] MEDS: Heparin 5,000 UNITS/ML VIAL SC SCH (21:08)
--- NOTE | 2019-09-02 22:08 | CON ---
DATE OF CONSULTATION: HISTORY OF PRESENT ILLNESS: Carley Sommer is a 54-year-old white female with end-stage renal disease. She was admitted with stroke. She did see Dr. Keaton Castle in the past in May 2017. She was found to have three vessel coronary artery disease with normal left ventricular function. She then underwent CABG x4 with CAO to the LAD. Saphenous vein grafts were placed to three diffusely diseased and not redo vessels-diagonal, ramus, and posterolateral branch. She returned once to the office for followup with Dr. Castle. She takes a regular dose aspirin every day. She then presented 2 days ago with dizziness, vertigo, weakness of her right arm and slurred speech. She had some confusion and presented to the emergency room. She denied any chest discomfort or shortness of breath. She denied any palpitations. She has not had any fevers or chills at home. She has been found to have on MRI a lacunar infarction of the left cerebellum. Echocardiogram has revealed possible mass on the mitral valve. PAST MEDICAL HISTORY: End-stage renal disease, on peritoneal dialysis, coronary artery disease, diabetes mellitus, hypertension, hyperlipidemia, history of autonomic dysfunction with orthostatic hypotension, hypothyroidism. PAST SURGICAL HISTORY: CABG in May 2017, gastric sleeve surgery, hysterectomy, right shoulder surgery, bunionectomy, , cholecystectomy. SOCIAL HISTORY: She continues to occasionally smoke. She occasionally drinks. REVIEW OF SYSTEMS: Otherwise unremarkable. MEDICATIONS: 1. Aspirin 325 daily. 2. Atorvastatin 40 at bedtime. 3. BuSpar 5 mg b.i.d. 4. Sensipar 30 mg daily. 5. Levothyroxine 137 daily. 6. Metoprolol 25 daily. 7. Nifedipine 30 t.i.d. 8. Protonix 40 daily. 9. Pregabalin 25 b.i.d. 10. Sertraline 25 daily. ALLERGIES: CODEINE, TORADOL, MORPHINE, TRAMADOL, AND [place]PPER. PHYSICAL EXAMINATION: VITAL SIGNS: Blood pressure 133/63, pulse 67, sinus rhythm on the monitor. HEENT: PERRL. NECK: Supple. CHEST: Clear. CARDIAC: S1 and S2 normal without any S3, S4, or murmurs. Carotid upstrokes normal without bruits. ABDOMEN: Normal bowel sounds without tenderness. EXTREMITIES: Revealed no clubbing, cyanosis, or edema. NEUROLOGIC: Grossly intact with normal strength. SKIN: Warm and dry. LABORATORY DATA: EKG revealed normal sinus rhythm with poor R-wave progression. Hemoglobin 10.9, hematocrit 34.1, white count 54555, platelets 327,000. Cholesterol 120, triglycerides 106, HDL 45, LDL 54. Troponin I 0.182. Sodium 136, potassium 3.5, chloride 99, carbon dioxide 21, BUN 41, creatinine 13.5. IMAGING: Echocardiogram revealed an ejection fraction of 60% to 65% with grade 1/3 diastolic dysfunction, severe mitral annular calcification, mild mitral regurgitation, mild tricuspid regurgitation, aortic valvular sclerosis, and a small flaily mass on the ventricular side of the mitral valve. IMPRESSION: 1. Lacunar infarct of the left cerebellum with normal CTA of the carotids and [place]. 2. Small mitral valve mass. 3. Status post coronary artery bypass grafting. 4. End-stage renal disease, on peritoneal dialysis. 5. Hypertension. 6. Hypercholesterolemia. 7. Smoker. 8. Hypothyroidism. 9. Non-ST elevation myocardial infarction, type 2. PLAN: Arrangements to be made for transesophageal echo. The procedure and risks were discussed with the patient. Job ID: [id number] [facility]
[2019-09-03] MEDS: HYDROcodone/Acetaminophen 5/325 mg Tablet PO PRN (03:58)
[2019-09-03] MEDS: Levothyroxine Sodium 112 MCG TAB PO SCH (05:27)
[2019-09-03] MEDS: Levothyroxine Sodium 25 MCG TAB PO SCH (05:27)
[2019-09-03] MEDS: NIFEdipine XL 30 MG TAB PO SCH ×3 (08:00→23:20)
[2019-09-03] MEDS ORDERED: PROPOFOL 20 ML ONE (10:26)
--- NOTE | 2019-09-03 11:02 | PRG ---
DATE OF SERVICE: 09/03/2019 SUBJECTIVE: Ros is a 54-year-old woman, who has been seen by my team. She has a history of C4-C6 ACDF by my colleague, Dr. Freeman, and has done very well in that regard. She presented with signs and symptoms of stroke and a MRI of the brain demonstrates diffusion restriction in the left cerebellar hemisphere that is quite small. She is on a full-strength aspirin at baseline prior to the stroke. She also had an MRI of the cervical spine, which demonstrated proximal adjacent segment disease with severe cervical stenosis and does appears if she has had some findings chronically for cervical myelopathy. That being said, the main issue here is her stroke. She is undergoing a stroke evaluation with an echocardiogram today. She will likely need escalation of her antiplatelet agents potentially with dual antiplatelet therapy versus anticoagulation, but from our cervical spine standpoint, we will arrange follow up either with Dr. Freeman's team or myself in 2 weeks to give her time to recover from the stroke. She is down getting her transesophageal echocardiogram when I came to see her, and as such, I was unable to do physical exam, but my team CTA of the neck and brain demonstrates no evidence of vascular abnormality. IMPRESSION: Left posterior fossa circulation stroke. Job ID: [id number]
--- NOTE | 2019-09-03 11:11 | PRG ---
DATE OF SERVICE: 09/03/2019 SUBJECTIVE: Patient was seen and examined at bedside and overnight events noted. Patient denies any shortness of breath or chest pain or palpitation. No history of nausea or vomiting or diarrhea or fever or chills or cramps. OBJECTIVE: GENERAL: This is a thin-built female, in no apparent distress. VITAL SIGNS: Temperature 97.8. Heart rate 60. Respiratory rate 15. Blood pressure 170/78. HEENT: Atraumatic, normocephalic. Oral mucosa is moist NECK: Supple. CARDIOVASCULAR: S1, S2 heard. Rate and rhythm regular. RESPIRATORY: Clear to auscultation. GASTROINTESTINAL: Abdomen is soft. MUSCULOSKELETAL: No tenderness. No edema. DERMATOLOGIC: No skin rash. NEUROLOGIC: Alert and awake and oriented X3. No focal neurologic deficits. Moving all the extremities. PSYCHIATRIC: Mood and affect normal. LABORATORY DATA: None today. ASSESSMENT: 1. End-stage renal disease. Continue on peritoneal dialysis as tolerated. 2. Hypertension. 3. Edema, controlled. 4. Chronic anemia. PLAN: Plan is to continue on dialysis as tolerated. Monitor hemoglobin. Monitor blood pressure closely. Titrate medications. We will remove fluid with dialysis as tolerated. Job ID: [id number]
--- NOTE | 2019-09-03 11:17 | OP ---
DATE OF PROCEDURE: 09/03/2019 PROCEDURE PERFORMED: Transesophageal echocardiogram. INDICATION: Carley Sommer is a 54-year-old woman with a cerebrovascular accident. DESCRIPTION OF PROCEDURE: The patient was taken to the PACU. The patient was sedated by Anesthesiology. A transesophageal probe was placed into the distal esophagus and stomach. Echocardiographic images were obtained. The transesophageal probe was removed. FINDINGS: 1. Normal left systolic function. 2. The aortic valve leaflets are sclerotic. 3. Mitral valve leaflets are heavily sclerotic and calcified. 4. Severe mitral annular calcification. 5. Mild mitral regurgitation. 6. Mild tricuspid regurgitation. 7. Atherosclerotic debris in the descending aorta. IMPRESSION: Thickened mitral valve leaflets with severe mitral annular calcification without any obvious cardiac masses. Job ID: [id number] [facility]
[2019-09-03] MEDS: Calcium Acetate 667 MG CAP PO SCH ×3 (11:40→19:38)
[2019-09-03] MEDS: Heparin 5,000 UNITS/ML VIAL SC SCH ×2 (11:59→23:20)
[2019-09-03] MEDS: Folic Acid 1 MG TAB PO SCH (12:28)
[2019-09-03] MEDS: Aspirin 325 mg Enteric Coated Tablet PO SCH (12:28)
[2019-09-03] MEDS: Bupropion 100 MG SR TAB PO SCH ×2 (12:28→23:17)
[2019-09-03] MEDS: Calcitriol 0.25 MCG CAP PO SCH (12:28)
[2019-09-03] MEDS: Pregabalin 25 MG CAP PO SCH ×2 (12:30→23:17)
--- NOTE | 2019-09-03 12:36 | CON ---
DATE OF CONSULTATION: This is Moe Navarro PA-C dictating a report for Sai Lisa MD. This is a 50-minute initial patient evaluation of which greater than 50% of the exam was spent counseling and coordinating the patient's care. Remainder of the exam was spent in review of the patient's medical records and review of appropriate imaging studies. CHIEF COMPLAINT: Slurred speech with left sided weakness and right arm paresthesias with mild left cerebellar stroke. HISTORY OF PRESENT ILLNESS: Ms. Hall is a pleasant 54-year-old female who is seen for the above complaints in regard to some bilateral arm weakness, worse on the right than the left and some right arm paresthesias. The patient's medical history is significant for end-stage renal disease, coronary artery disease with CABG on 325 mg aspirin at home, hypertension, and type 2 diabetes mellitus. She is on peritoneal dialysis. The patient notes that over the past 2-3 days that she had a sudden onset of slurred speech and heaviness into her right arm and leg. She also noticed paresthesias into the entire right upper extremity. Over the past few days, she has also noticed some left deltoid and triceps pain. The patient has a history of undergoing C4 through C6 ACDF with Dr. Freeman in March of 2009. After significant medical workup, it was noted that the patient had an acute stroke involving the left cerebellum. The patient has significant cardiac history and is planned for ИРИНА later today. In regard to the patient's CTA, there does not appear to be any aneurysm. There does not appear to be any acute hemorrhage and the brain MRI likely shows an infarct into the left cerebellum. In regard to the patient's cervical spine MRI, it does appear that the patient has developed a proximal adjacent segment disease in that she has foraminal stenosis at the C3-4 impinging the right C4 nerve root. She also has central canal stenosis, which is likely the culprit of some of the patient's balance difficulties. I should note that the patient also endorses a positive Lhermitte sign as when she looks up, she has significant neck pain radiating into the bilateral triceps. The patient endorses dizziness and some fine motor incoordination, which may be in part related to her central canal stenosis. Unfortunately, the patient continues to use tobacco. Currently, she states her symptoms have significantly improved and she is left with some trace paresthesias into the right arm and some intermittent left triceps pain. She has also noticed improvement in her leg weakness on the right. However, she has had minimal ambulation given her dizziness and fear of falling. The patient does endorse some burning into the right paracervical region, which has been happening over the past several months, the most severe over the past few days after sustaining her CVA. PHYSICAL EXAMINATION: NEURO: The patient is awake, alert, and appropriate. Her GCS is 15. She does not appear to have any nystagmus or pronator drift on exam. She has some trace weakness into the right upper extremity, but otherwise has good strength in the extremities. She has intact sensation to light touch throughout all the extremities. The patient does not have any tenderness to palpation of the cervical spine. The patient appears comfortable on exam. Her pupils are equal, round, and reactive bilaterally. Gait is not tested. IMPRESSION AND DIAGNOSES: 1. Acute left cerebellar ischemic cerebrovascular accident. 2. 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 3. History of C4 through C6 anterior cervical decompression and fusion. 4. Right arm paresthesias and weakness, improving. 5. Left triceps pain. 6. Hypertension. 7. End-stage renal disease on peritoneal dialysis. 8. History of coronary artery disease and coronary artery bypass graft on 325 mg aspirin. 9. Type 2 diabetes mellitus. PLAN: I have discussed the patient's case and imaging with Dr. Lisa. At this time, the patient does not require any intervention in regard to the brain. In regard to her cervical spine, she may in the future require cervical spine surgery, but at this time, it would be more beneficial to the patient to have her cardiac issues worked up as well as therapies to help improve her function after her stroke. I do believe some of her symptoms in regard to some of the ataxia and right-sided weakness may be related to her CVA. She does, however, have central and foraminal stenosis at C3-C4 centrally and on the right and this may also be leading to some trace right-sided weakness and some balance difficulties. We will arrange outpatient followup for the patient to discuss her treatment options in regard to physical therapy, possible epidural steroid injections and perhaps surgery in the future. As Dr. Freeman did her original surgery, we will contact their team, but nonetheless, the patient will be following up with [facility] on an outpatient basis. Please call with any changes in patient's neurologic status, otherwise at this time, Neurosurgery will sign off. Please call with any additional concerns. Job ID: [id number]
[2019-09-03] MEDS: busPIRone HCl 5 MG TAB PO SCH ×2 (12:40→23:18)
--- NOTE | 2019-09-03 21:35 | PDOC.HOSPP ---
- Subjective Encounter Date: 09/03/19 Encounter Time: 17:00 Subjective: Patient seen and examined for Acute CVA. No new focal deficits. No CP. s/p ИРИНА. No new complaints. No overnight events - Objective Vital Signs & Weight: Vital Signs (12 hours) Temp Pulse Resp BP BP BP Pulse Ox 09/03/19 19:52 97.9 F 65 16 137/65 96 09/03/19 16:15 97.4 F L 64 15 156/74 H 100 09/03/19 15:30 64 177/83 H 09/03/19 10:50 97.8 F 63 16 160/70 H 100 Weight Admit Weight 143 lb 9.6 oz Weight 143 lb 9.6 oz I&O: 09/02/19 09/03/19 09/04/19 06:59 06:59 06:59 Intake Total 240 170 485 Output Total 260 750 Balance 645 -90 -937 Result Diagrams: 08/31/19 17:21 09/01/19 10:25 Additional Labs: Accuchecks 09/03/19 09/03/19 09/03/19 20:00 16:26 11:03 POC Glucose 105 103 94 09/03/19 05:58 POC Glucose 139 H EKG Reviewed by me: Yes (Tele SR) Hospitalist ROS - Review of Systems Respiratory: denies: cough, dry, shortness of breath, hemoptysis, SOB with excertion, pleuritic pain, sputum, wheezing, other Cardiovascular: denies: chest pain, palpitations, orthopnea, paroxysmal noc. dyspnea, edema, light headedness, other - Medication Medications: Active Medications Generic Name Dose Route Start Last Admin Trade Name Freq PRN Reason Stop Dose Admin Acetaminophen 650 mg 09/01/19 10:37 09/02/19 00:44 Tylenol PO 650 mg Q4H PRN Administration Headache/Fever/Mild Pain (1-3) Hydrocodone Bitart/Acetaminophen 1 tab 09/01/19 10:29 09/03/19 03:58 [place] 5/325 PO 1 tab Q6HR PRN Administration Pain Aspirin 325 mg 09/02/19 09:00 09/03/19 12:28 Ecotrin PO 325 mg DAILY BELA Administration Atorvastatin Calcium 40 mg 09/01/19 21:00 09/02/19 21:06 Lipitor PO 40 mg HS BELA Administration Bupropion HCl 100 mg 10/29/19 21:00 09/02/19 21:08 Wellbutrin Sr PO 100 mg HS BELA Administration Bupropion HCl 200 mg 09/02/19 09:00 09/03/19 12:28 Wellbutrin Sr PO 200 mg DAILY BELA Administration Buspirone HCl 5 mg 09/01/19 21:00 09/03/19 12:40 Buspar PO 5 mg BID BELA Administration Calcitriol 0.25 mcg 09/02/19 09:00 09/03/19 12:28 Rocaltrol PO 0.25 mcg DAILY BELA Administration Calcium Acetate 1,334 mg 09/02/19 12:00 09/03/19 19:38 Phoslo PO 1,334 mg TID-WM BELA Administration Folic Acid 1 mg 09/02/19 09:00 09/03/19 12:28 Folvite PO 1 mg DAILY BELA Administration Heparin Sodium (Porcine) 5,000 units 09/02/19 21:00 09/03/19 11:59 Heparin SC 5,000 units BID BELA Administration Levothyroxine Sodium 112 mcg 09/02/19 06:00 09/03/19 05:27 Synthroid PO 112 mcg 0600 BELA Administration Levothyroxine Sodium 25 mcg 09/02/19 06:00 09/03/19 05:27 Synthroid PO 25 mcg 0600 BELA Administration Metoprolol Succinate 25 mg 09/02/19 09:00 09/03/19 08:00 Toprol Xl PO 25 mg DAILY BELA Administration Nifedipine 30 mg 09/01/19 15:00 09/03/19 15:30 Procardia Xl PO 30 mg TID BELA Administration Ondansetron HCl 4 mg 09/01/19 10:37 09/03/19 20:48 Zofran Odt PO 4 mg Q6H PRN Administration Nausea/Vomiting Pantoprazole Sodium 40 mg 09/02/19 09:00 09/03/19 08:00 Protonix PO 40 mg DAILY BELA Administration Pregabalin 25 mg 09/01/19 21:00 09/03/19 12:30 Lyrica PO 25 mg BID BELA Administration Sertraline HCl 25 mg 09/02/19 09:00 09/03/19 12:27 Zoloft PO 25 mg DAILY BELA Administration Sodium Chloride 10 ml 09/01/19 01:01 09/03/19 07:59 Flush - Normal Saline IVF 10 ml PRN PRN Administration Saline Flush - Exam General Appearance: NAD Heart: RRR, no gallops Respiratory: CTAB, no rales Gastrointestinal: soft, non-tender, normal bowel sounds Extremities: no edema Neurological: no new deficit Hosp A/P - Plan DVT proph w/SCDs Acute CVA involving left cerebellum Dizziness/Ataxia due to #1 Mass on aortic valve Chronic neck pain with abnormal Cervical MRI End-stage renal disease, on peritoneal dialysis. Diabetes mellitus type 2, diet controlled. Hypothyroidism. Hypertension with history of autonomic dysfunction in the past. Hyperlipidemia. Depression, mild, stable. CAD s/p CABG. Chronic anemia secondary to renal insufficiency. Elevated troponin secondary to demand ischemia/type 2 myocardial infarction. Hypokalemia. Tobacco dependence . PLAN: Cont ASA with Statins Cardiology/NSG input appreciated Cont other meds Cont Toprol/Procardia XL with holding parameters Rehab eval
[2019-09-03] MEDS: Atorvastatin Calcium 40 MG TAB PO SCH (23:17)
[2019-09-04 04:52] LABS: #Basophils 0.1 thou/uL (0.0-0.2); #Eosinphils 0.8 thou/uL (0.0-0.7); #Lymphocytes 3.4 thou/uL (1.20-3.40); #Monocytes 0.8 thou/uL (0.11-0.59); %Basophils 1.3 % (0.0-1.0); %Eosinophils 9.1 % (0.0-10.0); %Lymphocytes 36.9 % (21.0-51.0); %Monocytes 8.2 % (0.0-10.0); %Neutrophils 44.5 % (42.0-75.0); Hemoglobin 11.3 g/dL (12.0-16.0); Mean Corpuscular HGB CONC 32.8 g/dL (32.0-36.0); Mean Corpuscular Hemoglobin 27.9 pg (27.0-31.0); Mean Platelet Volume 7.7 fL (7.4-10.4); Platelet Count 240 thou/uL (130-400); RBC Distribution Width 12.6 % (11.5-14.5); Red Blood Cell (RBC) Count 4.06 mill/uL (4.20-5.40); White Blood Cell (WBC) Count 9.1 thou/uL (4.8-10.8)
[2019-09-04 05:04] LABS: Anion Gap 17 mmol/L (10-20); BUN (Urea Nitrogen) 33 mg/dL (9.8-20.1); Calc. Creatinine Clearance 6 mL/min (70-130); Calcium 7.8 mg/dL (7.8-10.44); Carbon Dioxide 22 mmol/L (22-29); Chloride 92 mmol/L (98-107); Estimated GFR-MDRD 3; Glucose 147 mg/dL (70-105); Sodium 128 mmol/L (136-145)
[2019-09-04] MEDS: Levothyroxine Sodium 112 MCG TAB PO SCH (05:51)
[2019-09-04] MEDS: Levothyroxine Sodium 25 MCG TAB PO SCH (05:52)
[2019-09-04] MEDS: Acetaminophen 325 MG TAB PO PRN (05:59)
[2019-09-04] MEDS ORDERED: Potassium Chloride 20 MEQ TAB PO SCH (08:30)
[2019-09-04] MEDS: Heparin 5,000 UNITS/ML VIAL SC SCH ×2 (09:32→20:17)
[2019-09-04] MEDS: Bupropion 100 MG SR TAB PO SCH ×2 (09:33→20:18)
[2019-09-04] MEDS: Calcium Acetate 667 MG CAP PO SCH ×3 (09:33→18:17)
[2019-09-04] MEDS: Folic Acid 1 MG TAB PO SCH (09:34)
[2019-09-04] MEDS: Calcitriol 0.25 MCG CAP PO SCH (09:34)
[2019-09-04] MEDS: Aspirin 325 mg Enteric Coated Tablet PO SCH (09:34)
[2019-09-04] MEDS: NIFEdipine XL 30 MG TAB PO SCH ×4 (09:35→20:16)
[2019-09-04] MEDS: busPIRone HCl 5 MG TAB PO SCH ×2 (11:26→20:15)
[2019-09-04] MEDS: Pregabalin 25 MG CAP PO SCH ×2 (11:26→20:17)
[2019-09-04 15:53] VITALS: TEMP 98.5
--- NOTE | 2019-09-04 18:12 | PRG ---
DATE OF SERVICE: 09/04/2019 SUBJECTIVE: Patient was seen and examined at bedside and overnight events noted. Patient denies any shortness of breath or chest pain or palpitation. No history of nausea or vomiting or diarrhea or fever or chills or cramps. OBJECTIVE: GENERAL: This is a thin-built female, in no apparent distress. VITAL SIGNS: Temperature 98.5. Heart rate 75. Respiratory rate 16. Blood pressure 160/74. HEENT: Atraumatic, normocephalic. Oral mucosa is moist NECK: Supple. CARDIOVASCULAR: S1, S2 heard. Rate and rhythm regular. RESPIRATORY: Clear to auscultation. GASTROINTESTINAL: Abdomen is soft. MUSCULOSKELETAL: No tenderness. No edema. DERMATOLOGIC: No skin rash. NEUROLOGIC: Alert and awake and oriented X3. No focal neurologic deficits. Moving all the extremities. PSYCHIATRIC: Mood and affect normal. LABORATORY DATA: Potassium 3.0, BUN is 33, creatinine is 11.4 ASSESSMENT AND PLAN: 1. End-stage renal disease. Continue on peritoneal dialysis as tolerated. 2. Edema, uncontrolled. Remove fluid. 3. Hyponatremia. Limit fluid intake. 4. Hypokalemia. Replace. 5. Anemia. Monitor. Replace potassium. Limit fluid intake. We will follow. Continue on dialysis as tolerated. Job ID: [id number]
[2019-09-04] MEDS: Atorvastatin Calcium 40 MG TAB PO SCH (20:16)
[2019-09-04] MEDS: HYDROcodone/Acetaminophen 5/325 mg Tablet PO PRN (20:18)
[2019-09-04 20:19] VITALS: BP 156/74
--- NOTE | 2019-09-04 20:38 | DIS ---
DATE OF ADMISSION: 09/01/2019 DATE OF DISCHARGE: 09/04/2019 DISCHARGE DISPOSITION: Inpatient rehabilitation. FOLLOWUP: 1. Follow up with Dr. Snehal Fitzpatrick in 1 week. 2. Peritoneal dialysis per Dr. Kenny. DISCHARGE MEDICATIONS: 1. Aspirin was reduced to 81 mg daily. 2. Plavix 75 mg was added per Neurology recommendation. All other home medications were left unchanged. The patient was seen on the day of discharge. Denies any new complaints. No chest pain, shortness of breath, palpitations, or new focal deficit reported. BRIEF HOSPITAL COURSE: The patient is a 54-year-old female with end-stage renal disease on peritoneal dialysis, presented to the hospital on 01 September 2019 with stroke-like symptoms. She had sudden onset of dizziness, vertigo along with headache, visual blurring, and left-sided numbness. Her workup was consistent with acute lacunar infarction of the left cerebellar hemisphere. She was evaluated by Neurology. Due to aspirin failure, Plavix was added. Aspirin dose was reduced to 81 mg daily from 325 mg. The patient had an echocardiogram that showed ejection fraction 60% to 65% along with small mass on the ventricular side of the valve. The patient was evaluated by Cardiology, Dr. Marks. She underwent transesophageal echocardiogram that showed severe mitral annular calcification without any obvious mass. No further recommendation per Cardiology. The patient also had a cervical spine MRI ordered per Neurology recommendation. It showed posterior disk bulge producing cord compression and central canal stenosis at C6-C7 as well as C3-C4. The patient was evaluated by Neurosurgery. She was advised to follow up with Dr. Freeman as outpatient. The patient was also evaluated by Nephrology, Dr. Kenny for maintenance peritoneal dialysis. FINAL DIAGNOSES: 1. Acute cerebrovascular accident involving the left cerebellum. 2. Dizziness with ataxia secondary to #1. 3. Severe mitral annular calcification. 4. Chronic diastolic heart failure. 5. Cervical degenerative disease. 6. Diabetes mellitus, type 2. 7. End-stage renal disease, on peritoneal dialysis. 8. Coronary artery disease, status post coronary artery bypass grafting. 9. Depression. 10. Hyperlipidemia. 11. Hypertension. 12. Hypothyroidism. 13. Hypokalemia. 14. Tobacco dependence. The patient was counseled. 15. Type 2 myocardial infarction. 16. Chronic anemia. PLAN: Plan was discussed with the patient in detail. She stated understanding. TIME SPENT: Total time coordinating the discharge of this patient was 35 minutes. Job ID: [id number]
[2019-09-04] MEDS ORDERED: Clopidogrel Bisulfate 75 MG TAB PO SCH (21:00)
[2019-09-05] MEDS ORDERED: Aspirin 81 mg Enteric Coated Tablet PO SCH (09:00)
== END 2019-09-04 20:42 | DRG 64 ==
LOC: ERS 16:01 → 2SE 19:40 → OBSVTOIN 09-01 14:32
PROVIDERS: ADMIT Internal Medicine; ATTEND Internal Medicine
PROC: 5A1D70Z Performance of Urinary Filtration, Intermittent, Less than 6 Hours Per Day (ICD-10-PCS; 2019-09-01)
PROC: B24BZZ4 Ultrasonography of Heart with Aorta, Transesophageal (ICD-10-PCS; principal; 2019-09-03)
DX: I63.89 Other cerebral infarction (principal); N18.6 End stage renal disease; I21.A1 Myocardial infarction type 2; F32.0 Major depressive disorder, single episode, mild; G99.2 Myelopathy in diseases classified elsewhere; I69.954 Hemiplegia and hemiparesis following unspecified cerebrovascular disease affecting left non-dominant side; E87.1 Hypo-osmolality and hyponatremia; I50.32 Chronic diastolic (congestive) heart failure; I13.0 Hypertensive heart and chronic kidney disease with heart failure and stage 1 through stage 4 chronic kidney disease, or unspecified chronic kidney disease; M50.01 Cervical disc disorder with myelopathy, high cervical region; Z99.2 Dependence on renal dialysis; Z95.1 Presence of aortocoronary bypass graft; I25.10 Atherosclerotic heart disease of native coronary artery without angina pectoris; E11.22 Type 2 diabetes mellitus with diabetic chronic kidney disease; Z79.82 Long term (current) use of aspirin; R29.711 NIHSS score 11; E03.9 Hypothyroidism, unspecified; E78.5 Hyperlipidemia, unspecified; Z90.710 Acquired absence of both cervix and uterus; Z98.84 Bariatric surgery status; Z90.49 Acquired absence of other specified parts of digestive tract; F17.200 Nicotine dependence, unspecified, uncomplicated; Z79.899 Other long term (current) drug therapy; D63.1 Anemia in chronic kidney disease; E87.6 Hypokalemia; Z88.5 Allergy status to narcotic agent; Z88.8 Allergy status to other drugs, medicaments and biological substances; G89.29 Other chronic pain; R47.81 Slurred speech; R40.2412 Glasgow coma scale score 13-15, at arrival to emergency department; I34.0 Nonrheumatic mitral (valve) insufficiency; I07.1 Rheumatic tricuspid insufficiency; M48.02 Spinal stenosis, cervical region; G83.21 Monoplegia of upper limb affecting right dominant side; R27.0 Ataxia, unspecified; F32.9 Major depressive disorder, single episode, unspecified; E78.00 Pure hypercholesterolemia, unspecified
CPT/HCPCS: 36415; 36416; 70450; 70496; 70498; 70551; 71045; 72141; 80048; 80053; 80061; 82553; 84484; 85025; 90471; 90732; 93005; 93306; 93312; 94760; G0009; J1644; J1815; J2704; Q0162; Q9966

== ENCOUNTER 2019-11-23 12:15 | Inpatient (IN) | payer MEDICARE ==
[2019-11-23 12:55] LABS: #Basophils 0.1 thou/uL (0.0-0.2); #Eosinphils 0.2 thou/uL (0.0-0.7); #Lymphocytes 1.8 thou/uL (1.20-3.40); #Monocytes 0.7 thou/uL (0.11-0.59); #Neutrophils 7.5 thou/uL (1.40-6.50); %Eosinophils 2.3 % (0.0-10.0); %Lymphocytes 17.5 % (21.0-51.0); %Monocytes 6.7 % (0.0-10.0); %Neutrophils 72.3 % (42.0-75.0); Hemoglobin 13.1 g/dL (12.0-16.0); Mean Corpuscular HGB CONC 32.8 g/dL (32.0-36.0); Mean Corpuscular Hemoglobin 27.6 pg (27.0-31.0); Mean Corpuscular Volume 84.2 fL (78.0-98.0); Mean Platelet Volume 7.5 fL (7.4-10.4); Platelet Count 335 thou/uL (130-400); RBC Distribution Width 11.9 % (11.5-14.5); Red Blood Cell (RBC) Count 4.74 mill/uL (4.20-5.40); White Blood Cell (WBC) Count 10.4 thou/uL (4.8-10.8)
[2019-11-23 13:04] LABS: PTT 28.5 SEC (22.9-36.1); Prothrombin Time 12.8 SEC (12.0-14.7)
--- NOTE | 2019-11-23 13:05 | CT ---
CT Brain WO Con: 11/23/2019 12:42 PM CLINICAL HISTORY: History of right-sided weakness concern for TIA versus CVA.. IMAGING TECHNIQUE: Multiple CT images were obtained of the brain without IV contrast. COMPARISON: CT the brain dated June 23, 2019 and MR the brain dated July 02, 2019 FINDINGS: Brain: There subacute appearing, interval, right basal ganglia lacunar infarct involving the right c audate head and right globus pallidus. Mild chronic small vessel white matter ischemic changes similar appearing. No intracranial hemorrhage is evident. No midline shift is evident. The right para falcine meningioma is unchanged. Ventricles: Normal. No hydrocephalus. Skull: Intact. Visualized Paranasal sinuses: Small mucus retention cyst within the right maxillary sinus. Mastoid air cells:Clear. Extracranial soft tissues:Normal. IMPRESSION: Interval subacute appearing right basal ganglia lacunar infarct. Findings were called to Dr. Pereira at 1:00 PM on November 23, 2019.
[2019-11-23] MEDS ORDERED: Labetalol HCl 100 MG/20 ML VIAL ONE ×2 (13:26→17:17)
[2019-11-23 13:27] LABS: ALT (SGPT) 17 U/L (8-55); AST (SGOT) 11 U/L (5-34); Albumin 3.4 g/dL (3.5-5.0); Alkaline Phosphatase 131 U/L (40-110); Anion Gap 23 mmol/L (10-20); BUN (Urea Nitrogen) 36 mg/dL (9.8-20.1); Bilirubin, Total 0.3 mg/dL (0.2-1.2); Calc. Creatinine Clearance 0 mL/min (70-130); Calcium 8.9 mg/dL (7.8-10.44); Carbon Dioxide 23 mmol/L (22-29); Chloride 97 mmol/L (98-107); Estimated GFR-MDRD 3; Globulin 2.9 g/dL (2.4-3.5); Glucose 196 mg/dL (70-105); Potassium 4.1 mmol/L (3.5-5.1); Protein, Total 6.3 g/dL (6.0-8.3); Sodium 139 mmol/L (136-145)
[2019-11-23 13:43] LABS: CKMB 1.4 ng/mL (0-6.6)
[2019-11-23] MEDS ORDERED: Acetaminophen 500 MG TAB ONE (14:24)
--- NOTE | 2019-11-23 15:42 | PDOC.FPRHP ---
- History of Present Illness Chief Complaint: Right Sided Weakness History of Present Illness: 54 yo female with extensive medical history presents for ED evaluation for right sided weakness. Patient reports that she had a CVA in August 2019 and at time she had increased confusion word finding difficulties and intense fatigue. She reports over the last week she has felt some of the same symptoms of increased fatigue and memory trouble. She notes that today she noticed that she kept dropping things in her right hand. She noted her home health nurse was present and recommended she present to the ED for evaluation. Of note, she did have a fall yesterday when she tripped over a concrete barrier at her home. Patient denied vision changes, headaches, or recent illness. At time of this evaluation she notes that her symptoms are improved. ED Course: Tylenol 1000 mg Labetalol 20 mg IV x2 - Allergies/Adverse Reactions Allergies Allergy/AdvReac Type Severity Reaction Status Date / Time codeine Allergy Verified 11/20/17 15:35 ketorolac [From Toradol] Allergy Verified 03/07/18 20:47 morphine Allergy Verified 06/16/18 18:38 tramadol Allergy Verified 03/11/18 00:52 walters pepper Allergy Severe Uncoded 11/20/17 15:35 - Home Medications Medication Instructions Recorded Confirmed Type Levothyroxine Sodium 137 mcg PO 0600 05/17/17 09/01/19 History Atorvastatin Calcium [Lipitor] 40 mg PO HS #30 tab 06/03/17 09/01/19 Rx Pantoprazole [Protonix] 40 mg PO DAILY #30 tab 06/03/17 09/01/19 Rx Calcitriol 0.25 mcg PO DAILY 03/07/18 09/01/19 History hydrOXYzine HCl [Hydroxyzine HCl] 25 mg PO PRN PRN 03/11/18 09/01/19 History NIFEdipine [Procardia XL] 30 mg PO TID 06/16/18 09/01/19 History Cholecalciferol (Vitamin D3) 50,000 unit PO Q7DAYS 07/24/19 09/01/19 History [Vitamin D3] Cinacalcet HCl [Sensipar] 30 mg PO DAILY 07/24/19 09/01/19 History Metoprolol Succinate [Toprol XL] 25 mg PO DAILY 07/24/19 09/01/19 History busPIRone HCl [Buspar] 5 mg PO BID 07/24/19 09/01/19 History Folic Acid/Vit B Complex and C 1 tablet PO DAILY 09/01/19 09/01/19 History [Dialyvite] HYDROcodone Bit/APAP 5/325 [[place]] 1 tab PO Q6HR PRN 09/01/19 09/01/19 History Pregabalin 25 mg PO BID 09/01/19 09/01/19 History buPROPion HCl [buPROPion HCl ER] 100 mg PO HS 09/01/19 09/01/19 History buPROPion HCl [buPROPion HCl ER] 200 mg PO AC 09/01/19 09/01/19 History Acetaminophen [Tylenol Regular 650 mg PO Q4H PRN tab 09/04/19 Rx Strength] Aspirin [Ecotrin Low Strength] 81 mg PO DAILY tab 09/04/19 Rx Clopidogrel Bisulfate [Plavix] 75 mg PO HS #30 tab 09/04/19 Rx Folic Acid [Folvite] 1 mg PO DAILY tab 09/04/19 Rx - History PMHx: [place], CAD s/p Bypass, HTN, DM2, ESRD on PD, Hypothyroidism PSHx: Cholecystectomy, x2, CABG 5v, Gastric Sleeve, Orthopedic surgeries x4, Hysterectomy FHx: Paternal DM. Social: Patient lives in apartment independently. Patient drinks socially and rarely. Current everyday smoker. Patient denies drug use. - Review of Systems General: denies: fever/chills, weight/appetite/sleep changes Eyes: denies: eye pain, vision changes ENT: denies: nasal congestion, rhinorrhea Respiratory: denies: cough, congestion, shortness of breath Cardiovascular: denies: chest pain, palpitation, edema Gastrointestinal: reports: diarrhea. denies: nausea, vomiting Genitourinary: denies: incontinence, dysuria Skin: denies: rashes, lesions Musculoskeletal: denies: pain, tenderness, stiffness Neurological: reports: weakness, other (Confusion). denies: numbness, syncope Psychological: reports: anxiety, depression - Vital signs BP: 161/92 HR: 63 RR: 15 Tmax: 98.1 Pox: 97% on RoomAir Wt: 68 kg - Physical Exam Constitutional: NAD, awake, alert and oriented HEENT: normocephalic and atraumatic, PERRLA, grossly normal vision, grossly normal hearing, normal nasal mucosa Neck: supple, FROM, trachea midline Heart: RRR, normal S1/S2, no murmurs/rubs/gallops -Heart: Previous CABG scar. Heart monitor on left chest. Lungs: CTAB, no respiratory distress, good air movement Abdomen: soft, non-tender, bowel sounds present, no masses/distention -Abdomen: PD catheter in place and well appearing. Musculoskeletal: normal structure, normal tone, ROM grossly normal Neurological: no focal deficit, CN II-XII intact, normal sensation -Neurological: Heel to miner, Finger to Nose, and other cerebellar testing negative Skin: no rash/lesions, good turgor, capillary refill <2 seconds Heme/Lymphatic: no unusual bruising or bleeding, no purpura Psychiatric: normal mood and affect, good judgment and insight, intact recent and remote memory FMR H&P: Results - Labs Result Diagrams: 11/23/19 12:48 11/23/19 12:49 Lab results: WBC 10.4 thou/uL (4.8-10.8) 11/23/19 12:48 Hgb 13.1 g/dL (12.0-16.0) 11/23/19 12:48 Hct 39.9 % (36.0-47.0) 11/23/19 12:48 MCV 84.2 fL (78.0-98.0) 11/23/19 12:48 Plt Count 335 thou/uL (130-400) 11/23/19 12:48 Neutrophils % 72.3 % (42.0-75.0) 11/23/19 12:48 Sodium 139 mmol/L (136-145) 11/23/19 12:49 Potassium 4.1 mmol/L (3.5-5.1) 11/23/19 12:49 Chloride 97 mmol/L (98-107) L 11/23/19 12:49 Carbon Dioxide 23 mmol/L (22-29) 11/23/19 12:49 BUN 36 mg/dL (9.8-20.1) H 11/23/19 12:49 Creatinine 14.66 mg/dL (0.6-1.1) H 11/23/19 12:49 Glucose 196 mg/dL (70-105) H 11/23/19 12:49 Calcium 8.9 mg/dL (7.8-10.44) 11/23/19 12:49 Total Bilirubin 0.3 mg/dL (0.2-1.2) 11/23/19 12:49 AST 11 U/L (5-34) 11/23/19 12:49 ALT 17 U/L (8-55) 11/23/19 12:49 Alkaline Phosphatase 131 U/L (40-110) H 11/23/19 12:49 CK-MB (CK-2) 1.4 ng/mL (0-6.6) 11/23/19 12:48 Serum Total Protein 6.3 g/dL (6.0-8.3) 11/23/19 12:49 Albumin 3.4 g/dL (3.5-5.0) L 11/23/19 12:49 - EKG Interpretation EK lead EKG shows normal sinus rhythm, Rate (beats per minute): 79, Conduction normal, ST segments normal, T waves normal, [place] normal, Other findings include: , Inferior infarct, age undetermined. Anteroseptal infarct, age undetermined. - Radiology Interpretation CT scan - head Status: report reviewed by me (Subacute lacunar infarct) FMR H&P: A/P - Problem List (1) TIA (transient ischemic attack) Current Visit: Yes Status: Acute Code(s): G45.9 - TRANSIENT CEREBRAL ISCHEMIC ATTACK, UNSPECIFIED (2) History of CVA (cerebrovascular accident) Current Visit: Yes Status: Acute Code(s): Z86.73 - PRSNL HX OF TIA (TIA), AND CEREB INFRC W/O RESID DEFICITS (3) CAD (coronary artery disease) Current Visit: No Status: Chronic Code(s): I25.10 - ATHSCL HEART DISEASE OF [place] CORONARY ARTERY W/O ANG PCTRS Qualifiers: Coronary Disease-Associated Artery/Lesion type: bypass graft [place] vs. transplanted heart: [place] heart Associated angina: without angina Qualified Code(s): I25.810 - Atherosclerosis of coronary artery bypass graft(s) without angina pectoris (4) ESRD on peritoneal dialysis Current Visit: No Status: Chronic Code(s): N18.6 - END STAGE RENAL DISEASE; Z99.2 - DEPENDENCE ON RENAL DIALYSIS (5) HTN (hypertension) Current Visit: No Status: Chronic Code(s): I10 - ESSENTIAL (PRIMARY) HYPERTENSION Qualifiers: Hypertension type: essential hypertension Qualified Code(s): I10 - Essential (primary) hypertension (6) Diabetes Current Visit: Yes Status: Acute Code(s): E11.9 - TYPE 2 DIABETES MELLITUS WITHOUT COMPLICATIONS (7) Hypothyroidism Current Visit: No Status: Chronic Code(s): E03.9 - HYPOTHYROIDISM, UNSPECIFIED Qualifiers: Hypothyroidism type: unspecified Qualified Code(s): E03.9 - Hypothyroidism , unspecified - Plan CVA vs TIA - Subacute lacunar infarct on CT - Will order MRI - CTA in August 2019 unremarkable for stenosis - TTE and ИРИНА in August 2019 unremarkable for vegetation - Consider increasing to Plavis pending results HTN - Reported out of control at home - Also reports orthostatic BP - Will order orthostatic vital signs - Continue regimen and attempt to better control CAD - Continue current regimen Hypothyroid - Continue home meds - Will order TSH DM - Diet controlled - Last HgbA1C reported to be 8.0 - Will order HgbA1C - Accuchecks ESRD on PD - Will consult Nephrology - Continue home regimen Elevated Troponin - Trend - Likely secondary to ESRD PCP: [facility] - [facility] CODE STATUS: DNI, cardiac code only Disposition: Stable, will admit to Observation services for further evaluation and treatment. Addendum - Attending - Attending Attestation Date/Time: 11/23/19 [id number] I personally evaluated the patient and discussed the management with Dr. Eugene. I agree with the History, Examination, Assessment and Plan documented above with any addition or exceptions noted below. Patient is known vasculopath with history of ESRD and recent CVA presenting with acute neuro change and feelings c/w her previous CVA. CT scan shows subacute infarct in new location. Her deficits are improved. She will be admitted to stroke obs, obtain MRI, consider increasing to ASA and Plavix for secondary prevention. Pending eorkuo, may need repeat neuro consult and therapy services. Permissive HTN overnight. No need to repeat echo or CTA unless clinical status changes.
[2019-11-23] MEDS ORDERED: Aspirin Chewable 81 MG TAB ONE (16:31)
[2019-11-23 16:37] LABS: Troponin I 0.107 ng/mL (< 0.028)
[2019-11-23] MEDS ORDERED: hydrALAZINE 20 MG/ML VIAL SLOW IVP PRN (17:15)
[2019-11-23] MEDS ORDERED: Dextrose 5% in Water 1,000 ML IV PRN (17:15)
[2019-11-23] MEDS ORDERED: Dextrose 50% Abboject 50 ML SYRINGE SLOW IVP PRN (17:15)
[2019-11-23] MEDS ORDERED: Labetalol HCl 100 MG/20 ML VIAL SLOW IVP PRN (17:15)
--- NOTE | 2019-11-23 17:24 | CON ---
DATE OF CONSULTATION: REASON FOR CONSULTATION: Stage 6 chronic kidney disease, on maintenance peritoneal dialysis. HISTORY OF PRESENT ILLNESS: This is a very pleasant 54-year-old female, who presented to the hospital with altered mental status and stroke-like symptoms. The patient does peritoneal dialysis daily. No further history can be obtained. PAST MEDICAL HISTORY: Significant for hypertension, end-stage kidney disease, anemia, secondary hyperparathyroidism, CVA, peritoneal dialysis, cholecystectomy, PD catheter, CABG, hysterectomy, and hemodialysis catheter. ALLERGIES: REVIEWED. MEDICATIONS: Home medications list, reviewed. Hospital medications list, reviewed. REVIEW OF SYSTEMS: Unobtainable. PHYSICAL EXAMINATION: GENERAL: The patient is resting. VITAL SIGNS: Afebrile, pulse 75, breathing 16, blood pressure 130/70. GENERAL APPEARANCE AND MENTAL STATUS: Fair. HEAD/NECK: Normocephalic. Atraumatic. EYES: EOMI. No deformity. EARS: Clear. No ulcers. NOSE: Intact. No lesions. MOUTH: Clear. No discharge. THROAT: Clear. No exudate. LUNGS: Clear. No crackles. CARDIAC: S1, S2. No rub. ABDOMEN: Benign. Bowel sounds positive. GENITALIA/RECTUM: Marx absent. BACK/EXTREMITIES: Edema 0+. NEUROLOGICAL: The patient is resting. SKIN: LYMPHATICS: LABORATORY DATA: Reviewed. ASSESSMENT AND PLAN: 1. Stage 6 chronic kidney disease. Continue peritoneal dialysis. 2. Hypertension, stable. 3. Anemia, stable. 4. Medication based on GFR appropriate. 5. CVA, management per primary team. Prognosis is poor. Job ID: [id number]
[2019-11-23 17:54] VITALS: BMI 22.1
[2019-11-23] MEDS ORDERED: busPIRone HCl 5 MG TAB PO PRN (17:59)
[2019-11-23 18:13] LABS: Hemoglobin A1c 7.3 % (4.0-6.0)
[2019-11-23] MEDS: Acetaminophen 325 MG TAB PO PRN (18:13)
[2019-11-23] MEDS: Atorvastatin Calcium 40 MG TAB PO SCH (20:44)
[2019-11-23] MEDS: Heparin 5,000 UNITS/ML VIAL SC SCH (20:44)
[2019-11-23] MEDS: Cinacalcet HCl 30 MG TAB PO SCH (20:44)
[2019-11-24] MEDS: Calcium Carbonate 500 MG ChewTAB PO PRN ×3 (00:24→20:40)
[2019-11-24 05:05] LABS: Anion Gap 23 mmol/L (10-20); BUN (Urea Nitrogen) 34 mg/dL (9.8-20.1); Calc. Creatinine Clearance 4 mL/min (70-130); Calcium 8.9 mg/dL (7.8-10.44); Carbon Dioxide 23 mmol/L (22-29); Cardiac Risk 3.5 (Less than 4.5); Chloride 96 mmol/L (98-107); Cholesterol 198 mg/dl (< 200 Desired); Estimated GFR-MDRD 3; Glucose 224 mg/dL (70-105); HDL Cholesterol 57 mg/dL (>60 Neg Risk); LDL Cholesterol, Calculated 104 mg/dL; Potassium 3.8 mmol/L (3.5-5.1); Sodium 138 mmol/L (136-145); Triglycerides 186 mg/dL (Less than 150)
[2019-11-24] MEDS: Acetaminophen 325 MG TAB PO PRN ×2 (05:43→10:59)
--- NOTE | 2019-11-24 05:48 | PDOC.FM ---
- Subjective Subjective: Pt noted a few instances of right hand weakness overnight when she was holding some objects. Denies any headache, numbness, confusion, or slurred speech since presenting. We discussed how she takes her synthroid at home and pt states she takes all of her medications together in the morning and does not wait to eat after - discussed how this is likely affecting how her synthroid is absorbed and recommended taking synthroid without her other medications at least an hour before a meal. Pt states she is also diet controlled for her diabetes since previously when she was on basal insulin she had recurrent hypoglycemic episodes. - Objective Vital Signs & Weight: Vital Signs (12 hours) Temp Pulse Resp BP BP Pulse Ox 11/24/19 04:00 98.1 F 78 16 154/77 H 99 11/24/19 00:00 98.4 F 81 16 144/78 H 99 11/23/19 19:51 98.1 F 83 16 136/62 100 11/23/19 18:40 89 161/73 H 11/23/19 17:48 60 232/130 H Weight Weight 62.227 kg I&O: 11/22/19 11/23/19 11/24/19 06:59 06:59 06:59 Intake Total 301 Output Total 0 Balance 301 Result Diagrams: 11/23/19 12:48 11/24/19 04:21 Phys Exam - Physical Examination Constitutional: NAD HEENT: PERRLA, moist MMs, sclera anicteric Neck: supple, full ROM Respiratory: no wheezing, clear to auscultation bilateral Cardiovascular: RRR, no significant murmur Gastrointestinal: soft, non-tender Musculoskeletal: no edema, pulses present Neurological: non-focal, normal sensation, moves all 4 limbs CN 2-12 intact, normal and equal strength in upper and lower extremities Psychiatric: normal affect, A&O x 3 Skin: no rash, cap refill <2 seconds Dx/Plan (1) History of CVA (cerebrovascular accident) Code(s): Z86.73 - PRSNL HX OF TIA (TIA), AND CEREB INFRC W/O RESID DEFICITS Status: Chronic (2) TIA (transient ischemic attack) Code(s): G45.9 - TRANSIENT CEREBRAL ISCHEMIC ATTACK, UNSPECIFIED Status: Suspected (3) Chronic anemia Code(s): D64.9 - ANEMIA, UNSPECIFIED Status: Chronic (4) DM2 (diabetes mellitus, type 2) Status: Chronic Qualifiers: Diabetes mellitus long term care pharmacist insulin use: with senior care use Diabetes mellitus complication status: with kidney complications Diabetes mellitus complication detail: with chronic kidney disease Chronic kidney disease stage : on chronic dialysis Qualified Code(s): E11.22 - Type 2 diabetes mellitus with diabetic chronic kidney disease; N18.6 - End stage renal disease; Z79.4 - intermediate card tender (current) use of insulin; Z99.2 - Dependence on renal dialysis (5) ESRD on peritoneal dialysis Code(s): N18.6 - END STAGE RENAL DISEASE; Z99.2 - DEPENDENCE ON RENAL DIALYSIS Status: Chronic (6) HTN (hypertension) Code(s): I10 - ESSENTIAL (PRIMARY) HYPERTENSION Status: Chronic Qualifiers: Hypertension type: essential hypertension Qualified Code(s): I10 - Essential (primary) hypertension (7) Hypothyroidism Code(s): E03.9 - HYPOTHYROIDISM, UNSPECIFIED Status: Chronic Qualifiers: Hypothyroidism type: unspecified Qualified Code(s): E03.9 - Hypothyroidism , unspecified - Plan Plan: CVA vs TIA - Subacute lacunar infarct on CT head w/o - MRI ordered - CTA in August 2019 unremarkable for stenosis - TTE and ИРИНА in August 2019 unremarkable for vegetation HTN - Initially severe range pressures, resolved after prn hydralazine - Holding home BP for permissive HTN until this afternoon - Elevated BP's continue off home rx CAD - Continue current regimen Hypothyroid - TSH: 25.5 - Likely 2/2 inappropriate administration DM - Diet controlled - Last HgbA1C reported to be 8.0 - Currently 7.3 - Accuchecks and mild SSI ESRD on PD - Nephro consulted - Continue home regimen Elevated Troponin - Trended stable, likely related to ESRD and severe range BP causing demand ischemia PCP: [facility] - [facility] CODE STATUS: DNI, cardiac code only Disposition: Stroke obs. Addendum - Attending - Attending Attestation Date/Time: 11/24/19 1052 I personally evaluated the patient and discussed the management with Dr. Pagan. I agree with the History, Examination, Assessment and Plan documented above with any addition or exceptions noted below. Patient here for CVA r/o. Awaiting MRI read and further mgmt per that result. Has history of irregular valve finding on TTE but ИРИНА performed and only calcifications noted. Possible neuro consult pending MRI result. Likely needs escalation of therapy to ASA and Plavix for DAPT.
[2019-11-24] MEDS ORDERED: Levothyroxine Sodium 125 MCG TAB PO SCH (06:00)
--- NOTE | 2019-11-24 08:28 | MRI ---
MRI of thebrain: 11/24/2019 COMPARISON:09/01/2019 HISTORY:Right-sided weakness, evaluate for acute infarction TECHNIQUE: Multiplanar multisequence MR imaging of thebrain obtained without contrast Findings:There is a punctate focus of restricted diffusion consistent with acute infarction within th e medial aspect of the left cerebellar hemisphere measuring 3-4 mm. There is an additional punctate focus of acute infarction within the posterior lateral aspect of the left frontal lobe measuring 4 mm . Within the periventricular white matter adjacent to the anterior body of the right lateral ventricle there is a 1.5 cm focus of acute infarction. There is an additional punctate focus of acute infarction within the posterior lateral right frontal lobe. The axial gradient echo imaging demonstrates no evidence for intracranial hemorrhage. There are scatt ered foci of increased T2 and FLAIR signal within the white matter, evidence of small vessel disease. Arterial flow voids at the axial level of the skull base appear unremarkable on the T2-weigh jose francisco imaging. No significant paranasal sinus of dislocation. Regional bone marrow signal intensity appears grossly unremarkable. IMPRESSION:Foci of acute infarction noted bilaterally, consistent with an embolic process. No associa jose francisco hemorrhage, midline shift, or mass effect.
--- NOTE | 2019-11-24 08:42 | PRG ---
DATE OF SERVICE: 11/24/2019 SUBJECTIVE: Patient was seen and examined at bedside and overnight events noted. Patient denies any shortness of breath or chest pain or palpitation. No history of nausea or vomiting or diarrhea or fever or chills or cramps. OBJECTIVE: GENERAL: This is a thin-built female, in no apparent distress. VITAL SIGNS: Temperature 97.8. Pulse 78. Respiratory rate 16. Blood pressure 164/86. HEENT: Atraumatic, normocephalic. Oral mucosa is moist NECK: Supple. CARDIOVASCULAR: S1, S2 heard. Rate and rhythm regular. RESPIRATORY: Clear to auscultation. GASTROINTESTINAL: Abdomen is soft. MUSCULOSKELETAL: No tenderness. No edema. DERMATOLOGIC: No skin rash. NEUROLOGIC: Alert and awake and oriented X3. No focal neurologic deficits. Moving all the extremities. PSYCHIATRIC: Mood and affect normal. LABORATORY DATA: Potassium 3.8, BUN is 34, creatinine is 14.03. ASSESSMENT AND PLAN: 1. End-stage renal disease. Continue peritoneal dialysis as tolerated. Avoid gadolinium contrast since she is on PD. 2. Hypertension. 3. Anemia. 4. Edema controlled. 5. Continue peritoneal dialysis as tolerated. Job ID: [id number]
[2019-11-24] MEDS: Bupropion 150 MG SR TAB PO SCH ×3 (08:47→16:52)
[2019-11-24] MEDS: Heparin 5,000 UNITS/ML VIAL SC SCH ×3 (08:47→20:40)
[2019-11-24] MEDS: Calcitriol 0.25 MCG CAP PO SCH (08:48)
[2019-11-24] MEDS: Cinacalcet HCl 30 MG TAB PO SCH ×2 (08:48→20:40)
[2019-11-24] MEDS ORDERED: Aspirin 325 mg Enteric Coated Tablet PO SCH ×2 (09:00)
[2019-11-24] MEDS ORDERED: Clopidogrel Bisulfate 75 MG TAB PO SCH (10:45)
[2019-11-24] MEDS: HumaLOG 300 UNITS/3 ML VIAL SC PRN (11:02)
[2019-11-24] MEDS ORDERED: Ondansetron PF 4 MG/2 ML Vial IVP PRN (11:29)
[2019-11-24] MEDS ORDERED: Promethazine HCl 25 MG/ML VIAL IM/IV PRN (12:18)
[2019-11-24 12:35] LABS: Anion Gap 25 mmol/L (10-20); BUN (Urea Nitrogen) 36 mg/dL (9.8-20.1); Calc. Creatinine Clearance 4 mL/min (70-130); Calcium 8.6 mg/dL (7.8-10.44); Carbon Dioxide 19 mmol/L (22-29); Chloride 96 mmol/L (98-107); Estimated GFR-MDRD 3; Glucose 252 mg/dL (70-105); Potassium 3.7 mmol/L (3.5-5.1); Sodium 136 mmol/L (136-145)
[2019-11-24 12:36] LABS: Troponin I 0.068 ng/mL (< 0.028)
[2019-11-24] MEDS ORDERED: Methocarbamol 500 MG TAB PO PRN (13:40)
[2019-11-24] MEDS ORDERED: diphenhydrAMINE 50 MG CAP PO SCH (13:45)
[2019-11-24] MEDS: Atorvastatin Calcium 40 MG TAB PO SCH (20:40)
[2019-11-24] MEDS ORDERED: NIFEdipine XL 30 MG TAB PO SCH (21:00)
[2019-11-24] MEDS ORDERED: Famotidine/PF 20 mg/2ml Vial SLOW IVP SCH (21:00)
[2019-11-24] MEDS ORDERED: NIFEdipine XL 90 MG TAB PO SCH (21:30)
[2019-11-24 23:04] LABS: HBSAg Index 0.45 S/CO (0-0.99); Hep B Surf Ag Non-Reactive S/CO (NonReactive)
[2019-11-24] MEDS ORDERED: Calcium Carbonate 500 MG ChewTAB PO PRN (23:57)
--- NOTE | 2019-11-25 00:01 | PDOC.BPN ---
- Brief Progress Note Assessed patient for prior nausea and chest pain. Denies chest pain. Feeling nauseous and would like some Tums. Last took Tums at 21:00. Order is q6h. Changed order to q3h with stop time in AM. Concern for QT prolongated. Zofran and phenergan discontinued. Considered reglan. Serious side effect is AV block. Pt had 2nd deg av block this AM. Will try Tums again and reassess if needed. Telemetry: pt is NSR in 80s since her episode of 2nd deg AV block at 11:26 this AM.
--- NOTE | 2019-11-25 00:47 | CON ---
DATE OF CONSULTATION: 11/24/2019 CONSULT PHYSICIANS: Family Medicine Service. IMPRESSION: 1. Left posterior circulation stroke involving the left cerebellum and a punctate area of left frontal ischemia. 2. She has a past history of cerebellar hemorrhage. 3. Diabetes. 4. Hypertension. 5. Hyperlipidemia. 6. Hypothyroidism. 7. Aspirin failure. PLAN: 1. Continue aspirin and Lipitor. 2. Add Plavix. 3. Carotid ultrasound. 4. PT assessment and determine whether inpatient rehab is needed. HISTORY OF PRESENT ILLNESS: Ms. Johansen is a 54-year-old woman with the above noted medical problems. She had an acute change where she felt more confused and had difficulty using her right hand. She did not have any nausea or vomiting associated with it. She did not report any vision disturbance. She came in for evaluation. She had a CT of the brain, which was unremarkable. MRI of the brain revealed 2 areas of this ischemic injury involving the left cerebellum and left frontal lobe. Her echocardiogram showed ejection fraction of 60% to 65%. Her carotids have not been done yet. PAST MEDICAL HISTORY: As listed above. ALLERGIES: CODEINE, KETORALAC, MORPHINE, TORADOL, TRAMADOL. SOCIAL HISTORY: No tobacco. FAMILY HISTORY: Noncontributory. REVIEW OF SYSTEMS: Ten-system review of systems is otherwise negative. PHYSICAL EXAMINATION: VITAL SIGNS: Blood pressure 141/69, pulse 73, respirations 16, earlier measures showed diastolic hypertension over 100. HEENT: Pupils equal and reactive. Conjunctivae clear. Oropharynx clear. NECK: Supple. EXTREMITIES: No cyanosis or edema. NEUROLOGIC: She was alert and cooperative. Her speech is fluent and clear. There is no facial asymmetry noted. No visual field deficits elicited. Motor exam showed good process mechanic strength bilaterally. No tremor or dysmetria was present. Sensation was intact to touch. No abnormal movements were seen, although she reported some uncontrolled left arm jerking prior to this visit. She walked a short distance earlier, but felt a bit dizzy. IMAGING STUDIES: EKG shows normal sinus rhythm. SUMMARY: This is a middle-aged woman who presents with an acute stroke syndrome. I agree with your care and workup. We would add a carotid ultrasound for completeness and need to assess her gait to determine whether she is stable for returning home. Job ID: [id number]
[2019-11-25] MEDS: Acetaminophen 325 MG TAB PO PRN (01:16)
--- NOTE | 2019-11-25 05:31 | PDOC.FM ---
- Subjective Subjective: Pt states she is feeling well this morning. Does not difficulty sleeping last night due to twitching of her hands through the night. She denies any weakness, headache, SOB, or CP this morning. She states that she was seen by Dr. Lawrence yesterday. Agrees with plan of care for echo, carotid US, and rehab placement. - Objective Vital Signs & Weight: Vital Signs (12 hours) Temp Pulse Resp BP BP BP Pulse Ox 11/25/19 03:10 97.5 F L 80 16 107/55 L 99 11/25/19 00:00 97.7 F 81 16 157/83 H 99 11/24/19 21:41 78 194/92 H 11/24/19 19:20 97.6 F 78 16 194/92 H 100 Weight Admit Weight 62.227 kg Weight 62.227 kg I&O: 11/23/19 11/24/19 11/25/19 06:59 06:59 06:59 Intake Total 911 Output Total 0 1600 Balance 911 -1600 Result Diagrams: 11/23/19 12:48 11/24/19 11:48 Phys Exam - Physical Examination Constitutional: NAD HEENT: moist MMs, sclera anicteric Neck: full ROM Respiratory: clear to auscultation bilateral Cardiovascular: RRR, no significant murmur Gastrointestinal: soft, non-tender Musculoskeletal: no edema, pulses present Neurological: non-focal, normal sensation, moves all 4 limbs No notable tremors Psychiatric: normal affect, A&O x 3 Skin: no rash, cap refill <2 seconds Dx/Plan (1) History of CVA (cerebrovascular accident) Code(s): Z86.73 - PRSNL HX OF TIA (TIA), AND CEREB INFRC W/O RESID DEFICITS Status: Chronic (2) TIA (transient ischemic attack) Code(s): G45.9 - TRANSIENT CEREBRAL ISCHEMIC ATTACK, UNSPECIFIED Status: Suspected (3) Chronic anemia Code(s): D64.9 - ANEMIA, UNSPECIFIED Status: Chronic (4) DM2 (diabetes mellitus, type 2) Status: Chronic Qualifiers: Diabetes mellitus buttermaker continuous churn insulin use: with alf use Diabetes mellitus complication status: with kidney complications Diabetes mellitus complication detail: with chronic kidney disease Chronic kidney disease stage : on chronic dialysis Qualified Code(s): E11.22 - Type 2 diabetes mellitus with diabetic chronic kidney disease; N18.6 - End stage renal disease; Z79.4 - FCI (current) use of insulin; Z99.2 - Dependence on renal dialysis (5) ESRD on peritoneal dialysis Code(s): N18.6 - END STAGE RENAL DISEASE; Z99.2 - DEPENDENCE ON RENAL DIALYSIS Status: Chronic (6) HTN (hypertension) Code(s): I10 - ESSENTIAL (PRIMARY) HYPERTENSION Status: Chronic Qualifiers: Hypertension type: essential hypertension Qualified Code(s): I10 - Essential (primary) hypertension (7) Hypothyroidism Code(s): E03.9 - HYPOTHYROIDISM, UNSPECIFIED Status: Chronic Qualifiers: Hypothyroidism type: unspecified Qualified Code(s): E03.9 - Hypothyroidism , unspecified - Plan Plan: Acute CVA - MRI brain: Left cerebellar, left lateral frontal lobe, right lateral frontal lobe punctate acute infarcts - Carotid ultrasound ordered per neuro recs - CTA in August 2019 unremarkable for stenosis - TTE and ИРИНА in August 2019 unremarkable for vegetation - Neurology, Dr. Lawrence - recommended asa and plavix w/ statin therapy - CM consulted for inpatient rehab placement, PT/OT in place HTN - Resumed home bp: metoprolol and nifedipine - BP now normalized, continue to monitor CAD - Continue current regimen AV Block - Pt developed complete heart block for about 15 seconds yesterday - Occurred during labetolol push while pt was vomiting - Likely combination of BB and vagal stimulation - Has since resolved, subsequent trop and EKG were at pt baseline aside from QT prolongation - QT prolonging agents removed from [facility] Hypothyroid - TSH: 25.5 - Likely 2/2 inappropriate administration, discussed appropriate way to take Rx - Resume home dose synthroid DM - Diet controlled - Last HgbA1C reported to be 8.0 - Currently 7.3 - Accuchecks and mild SSI ESRD on PD - Nephro consulted - Continue home regimen Elevated Troponin - Trended stable, likely related to ESRD and severe range BP causing demand ischemia PCP: CC - S&[facility] CODE STATUS: DNI, cardiac code only Disposition: Stroke obs. Echo and carotid US today. Inpt rehab assessment. Addendum - Attending - Attending Attestation Date/Time: 11/25/19 1044 I personally evaluated the patient and discussed the management with Dr. Pagan. I agree with the History, Examination, Assessment and Plan documented above with any addition or exceptions noted below. Patient overall stable. She is apparently having some involuntary "twitches" that would be characteristic for basal ganglia infarct such as hemiballismus. Continue therapy, post stroke care. She is pending rehab screen.
[2019-11-25] MEDS: Levothyroxine Sodium 25 MCG TAB PO SCH (05:54)
[2019-11-25] MEDS: Levothyroxine Sodium 112 MCG TAB PO SCH (05:54)
[2019-11-25] MEDS: Heparin 5,000 UNITS/ML VIAL SC SCH ×3 (08:25→20:33)
[2019-11-25] MEDS: Bupropion 150 MG SR TAB PO SCH ×3 (08:26→16:39)
[2019-11-25] MEDS: Aspirin 81 mg Enteric Coated Tablet PO SCH (08:26)
[2019-11-25] MEDS: Famotidine/PF 20 mg/2ml Vial SLOW IVP SCH (08:27)
[2019-11-25] MEDS: Cinacalcet HCl 30 MG TAB PO SCH ×2 (08:27→20:33)
[2019-11-25] MEDS: Calcitriol 0.25 MCG CAP PO SCH (08:27)
[2019-11-25] MEDS: Clopidogrel Bisulfate 75 MG TAB PO SCH (08:27)
--- NOTE | 2019-11-25 09:33 | PRG ---
DATE OF SERVICE: 11/25/2019 SUBJECTIVE: Patient was seen and examined at bedside and overnight events noted. Patient denies any shortness of breath or chest pain or palpitation. No history of nausea or vomiting or diarrhea or fever or chills or cramps. OBJECTIVE: GENERAL: This is a well-built female, in no apparent distress. VITAL SIGNS: Temperature 98.0. Heart rate 85. Respiratory rate 14. Blood pressure 106/61. HEENT: Atraumatic, normocephalic. Oral mucosa is moist NECK: Supple. CARDIOVASCULAR: S1, S2 heard. Rate and rhythm regular. RESPIRATORY: Clear to auscultation. GASTROINTESTINAL: Abdomen is soft. MUSCULOSKELETAL: No tenderness. No edema. DERMATOLOGIC: No skin rash. NEUROLOGIC: Alert and awake and oriented X3. No focal neurologic deficits. Moving all the extremities. PSYCHIATRIC: Mood and affect normal. LABORATORY DATA: Potassium 3.7, BUN is 36, and creatinine is 14.1. ASSESSMENT AND PLAN: 1. End-stage renal disease. We will continue peritoneal dialysis. 2. Hypertension, stable. 3. Anemia. 4. Edema, controlled. 5. Blood pressure is better and tolerating PD well. Continue on PD as tolerated. Job ID: [id number]
[2019-11-25] MEDS ORDERED: Cyclobenzaprine 10 MG TAB PO PRN (10:21)
[2019-11-25] MEDS: HumaLOG 300 UNITS/3 ML VIAL SC PRN (11:46)
--- NOTE | 2019-11-25 12:06 | ULT ---
CAROTID DOPPLER ULTRASOUND: Date: 11/25/2019 HISTORY: Acute stroke. COMPARISON: None. TECHNIQUE: Real-time [place] scale, color Doppler, and spectral analysis of the extracranial carotid and vertebral arteries was performed. FINDINGS: There are no elevated peak systolic velocities within the internal carotid arteries. Antegrade flow b oth vertebral arteries. IMPRESSION: No hemodynamically significant stenosis. POS: TPC
[2019-11-25] MEDS ORDERED: Meclizine HCl 12.5 MG TAB PO PRN (15:01)
[2019-11-25] MEDS: Atorvastatin Calcium 40 MG TAB PO SCH (20:33)
[2019-11-25] MEDS: NIFEdipine XL 90 MG TAB PO SCH (20:33)
[2019-11-25] MEDS ORDERED: NIFEdipine XL 30 MG TAB PO SCH (21:00)
[2019-11-25] MEDS ORDERED: Lorazepam 2 MG/ML VIAL SLOW IVP SCH (22:00)
[2019-11-25] MEDS: Lactated Ringer's 500 ML IV SCH (23:50)
[2019-11-26 05:05] LABS: Phosphorus 8.6 mg/dL (2.3-4.7)
[2019-11-26 05:07] LABS: Anion Gap 26 mmol/L (10-20); BUN (Urea Nitrogen) 31 mg/dL (9.8-20.1); Calc. Creatinine Clearance 5 mL/min (70-130); Calcium 7.6 mg/dL (7.8-10.44); Carbon Dioxide 19 mmol/L (22-29); Chloride 94 mmol/L (98-107); Estimated GFR-MDRD 3; Glucose 253 mg/dL (70-105); Potassium 3.6 mmol/L (3.5-5.1); Sodium 135 mmol/L (136-145)
--- NOTE | 2019-11-26 05:36 | PDOC.FM ---
- Subjective Subjective: Pt became delirious last night, calling her son reporting hallucinations and calling the baggage screener rambling about nonsense. Pt received 1mg ativan with minimal improvement. She has not been combative or aggressive. She remains pleasantly confused this morning, denies any complaints, rambles about nonsense. Pt was found to have received an inappropriate dose of her home bupropion which was stopped this morning. - Objective Vital Signs & Weight: Vital Signs (12 hours) Temp Pulse Resp BP BP Pulse Ox 11/26/19 03:58 97.7 F 75 18 127/64 99 11/25/19 20:33 69 134/76 11/25/19 20:00 97.4 F L 12 137/67 100 Weight Admit Weight 62.227 kg Weight 62.227 kg I&O: 11/24/19 11/25/19 11/26/19 06:59 06:59 06:59 Intake Total 911 Output Total 0 1600 Balance 911 -1600 Result Diagrams: 11/23/19 12:48 11/26/19 04:42 Phys Exam - Physical Examination Constitutional: NAD HEENT: moist MMs Neck: full ROM Respiratory: no wheezing, clear to auscultation bilateral Cardiovascular: RRR, no significant murmur Gastrointestinal: soft, non-tender Musculoskeletal: no edema, pulses present No focal deficits, speech clear but innappropiate and delirious moves all extremities equally, no nystagmus Deviation from normal: A&O x 1 Dx/Plan (1) History of CVA (cerebrovascular accident) Code(s): Z86.73 - PRSNL HX OF TIA (TIA), AND CEREB INFRC W/O RESID DEFICITS Status: Chronic (2) TIA (transient ischemic attack) Code(s): G45.9 - TRANSIENT CEREBRAL ISCHEMIC ATTACK, UNSPECIFIED Status: Suspected (3) Chronic anemia Code(s): D64.9 - ANEMIA, UNSPECIFIED Status: Chronic (4) DM2 (diabetes mellitus, type 2) Status: Chronic Qualifiers: Diabetes mellitus snf insulin use: with exterminator use Diabetes mellitus complication status: with kidney complications Diabetes mellitus complication detail: with chronic kidney disease Chronic kidney disease stage : on chronic dialysis Qualified Code(s): E11.22 - Type 2 diabetes mellitus with diabetic chronic kidney disease; N18.6 - End stage renal disease; Z79.4 - USP (current) use of insulin; Z99.2 - Dependence on renal dialysis (5) ESRD on peritoneal dialysis Code(s): N18.6 - END STAGE RENAL DISEASE; Z99.2 - DEPENDENCE ON RENAL DIALYSIS Status: Chronic (6) HTN (hypertension) Code(s): I10 - ESSENTIAL (PRIMARY) HYPERTENSION Status: Chronic Qualifiers: Hypertension type: essential hypertension Qualified Code(s): I10 - Essential (primary) hypertension (7) Hypothyroidism Code(s): E03.9 - HYPOTHYROIDISM, UNSPECIFIED Status: Chronic Qualifiers: Hypothyroidism type: unspecified Qualified Code(s): E03.9 - Hypothyroidism , unspecified - Plan Plan: Acute CVA - MRI brain: Left cerebellar, left lateral frontal lobe, right lateral frontal lobe punctate acute infarcts - CTA head and neck in August 2019 unremarkable for stenosis - TTE and ИРИНА in August 2019 unremarkable for vegetation - Neurology, Dr. Lawrence - recommended asa and plavix w/ statin therapy - CM consulted for inpatient rehab placement, PT/OT in place - Echo performed yesterday with no visualized embolic source - Carotid US pending Delirium - Medication Overdose vs CVA Sx vs Hospital Associated Delirium - Pt having hallucinations starting last night - Found to have received inappropriate home bupropion dose, instead of 100mg TID , she received 300mg TID for 2 days - stopped cyclobenzaprine and bupropion - Poison control called and recommended continuous tele monitoring and ativan 2mg PRN and seizure precautions - expect improvement within 24hr of last dose - EKG showed 1st degree AV block and prolonged QT - pt on continuous tele monitoring - Continually re-orient HTN - Resumed home bp: metoprolol and nifedipine - BP now normalized, continue to monitor CAD - Continue current regimen AV Block - Resolved - Remains resolved - Continue to avoid QT prolonging agents Hypothyroid - TSH: 25.5 - Likely 2/2 inappropriate administration, discussed appropriate way to take Rx - Resume home dose synthroid DM - Diet controlled at home - Last HgbA1C reported to be 8.0 - Currently 7.3 - Accuchecks and mild SSI ESRD on PD - Nephro consulted - Continue home regimen PCP: [facility] - S&W CODE STATUS: DNI, cardiac code only Disposition: Stroke obs. mental status monitoring. carotid US today. Inpt rehab assessment. Addendum - Attending - Attending Attestation Date/Time: 11/26/19 1139 I personally evaluated the patient and discussed the management with Dr. Pagan. I agree with the History, Examination, Assessment and Plan documented above with any addition or exceptions noted below. Patient here for CVA, and from that standpoint she is doing well. She is pending rehab acceptance. However, she was receiving an elevated dose of Wellbutrin that has resulted in some QT prolongation and mental status changes. She is somewhat improved now that the medication has been held. We have done an investigation to determine how this occurred, and we have not found cause yet. There is record that Dr. Eugene ordered the patient's home dose of medication ( 100mg TID), which was changed to 150mg TID by the pharmacy, and somehow this became 300mg TID without any evidence of how or why this was changed. We have discussed with pharmacy and will also discuss with informatics. Poison control has been contacted and we are continuing to monitor the patient.
[2019-11-26] MEDS ORDERED: Lorazepam 2 MG/ML VIAL SLOW IVP PRN (05:56)
--- NOTE | 2019-11-26 06:02 | PDOC.BPN ---
- Brief Progress Note Called to bedside for hallucinations Patient was on 300mg of Wellbutrin TID, this was stopped earlier in the night Also holding sertraline She follows commands but thinks she is in [place] and Louis Lund is president She is calm, no signs of agitation Was given 1mg Ativan earlier in the night Ordered EKG to check on QT interval Spoke to poison control They stated she would likely start to improve 24 hours after last dose which would be 6pm tonight No changes in management based on peritoneal dialysis, per their report this actually may be helpful They recommended aggressive treatment of hallucination with Ativan, start at 2mg q4 hrs PRN
[2019-11-26] MEDS: HumaLOG 300 UNITS/3 ML VIAL SC PRN (06:41)
[2019-11-26] MEDS: Levothyroxine Sodium 112 MCG TAB PO SCH (07:40)
[2019-11-26] MEDS: Levothyroxine Sodium 25 MCG TAB PO SCH (07:41)
[2019-11-26] MEDS: Lactated Ringer's 500 ML IV SCH (09:29)
[2019-11-26] MEDS: Calcitriol 0.25 MCG CAP PO SCH (09:33)
[2019-11-26] MEDS: Aspirin 81 mg Enteric Coated Tablet PO SCH (09:33)
[2019-11-26] MEDS: Clopidogrel Bisulfate 75 MG TAB PO SCH (09:33)
[2019-11-26] MEDS: Heparin 5,000 UNITS/ML VIAL SC SCH ×3 (09:34→22:14)
[2019-11-26] MEDS: Famotidine/PF 20 mg/2ml Vial SLOW IVP SCH (09:34)
[2019-11-26] MEDS: Cinacalcet HCl 30 MG TAB PO SCH (09:43)
--- NOTE | 2019-11-26 10:50 | PRG ---
DATE OF SERVICE: 11/26/2019 SUBJECTIVE: The patient was seen and examined at the bedside, remains slightly confused, but was able to have a conversation. No fever or chills. No nausea or vomiting. No shortness of breath. Had PD and tolerated it well, no complaints. OBJECTIVE: GENERAL: This is a thin built female, mildly confused. VITAL SIGNS: Temperature 97.7, pulse 75, respiratory rate 18, rate pressure 120 /64. HEENT: Atraumatic, normocephalic. NECK: Supple. CV: S1 and S2 heard. RESPIRATORY: Clear. GI: Abdomen is soft. MUSCULOSKELETAL: 1+ edema. DERMATOLOGIC: No skin rash. NEUROLOGIC: Awake, but slightly confused. LABORATORY DATA: Hemoglobin is 13.1. Potassium 3.6, BUN is 31, and creatinine noted ASSESSMENT AND PLAN: 1. End-stage renal disease. Continue peritoneal dialysis. BUN is acceptable. 2. Hyponatremia. Limit fluid intake. 3. Acidosis, monitor. 4. Altered mentation, may be from polypharmacy adjust medicines. 5. Edema, controlled. 6. Hypertension, stable. We will continue on peritoneal dialysis as tolerated and she is tolerating well. Job ID: [id number] [facility]
[2019-11-26] MEDS: Calcium Acetate 667 MG CAP PO SCH ×3 (13:28→16:23)
[2019-11-26] MEDS: Calcium Carbonate 500 MG ChewTAB PO PRN ×2 (16:04→22:21)
[2019-11-26] MEDS: NIFEdipine XL 90 MG TAB PO SCH (22:14)
[2019-11-26] MEDS: Atorvastatin Calcium 40 MG TAB PO SCH (22:15)
--- NOTE | 2019-11-27 05:31 | PDOC.FM ---
- Subjective Subjective: Pt is conversant this morning, speech appropriate. She complains of difficulty sleeping last night. States she feels much better this morning that she did last evening. She is aware of her current plan of care and agrees. Denies any complaints. - Objective Vital Signs & Weight: Vital Signs (12 hours) Temp Pulse Resp BP BP Pulse Ox 11/27/19 03:25 97.7 F 70 16 161/74 H 97 11/26/19 23:49 98 F 74 16 154/70 H 99 11/26/19 22:14 71 167/100 H 11/26/19 19:40 98 F 70 16 166/73 H 97 Weight Admit Weight 62.227 kg Weight 62.227 kg I&O: 11/25/19 11/26/19 11/27/19 06:59 06:59 06:59 Intake Total 540 Output Total 1600 Balance -1600 540 Result Diagrams: 11/27/19 05:53 11/27/19 05:53 Phys Exam - Physical Examination Constitutional: NAD HEENT: PERRLA, moist MMs Neck: full ROM Respiratory: no wheezing, clear to auscultation bilateral Cardiovascular: RRR short soft diastolic murmur Gastrointestinal: soft, non-tender, no distention Musculoskeletal: no edema, pulses present Neurological: non-focal, normal sensation, moves all 4 limbs Normal mentation on my exam Psychiatric: normal affect, A&O x 3 Skin: no rash, cap refill <2 seconds Dx/Plan (1) History of CVA (cerebrovascular accident) Code(s): Z86.73 - PRSNL HX OF TIA (TIA), AND CEREB INFRC W/O RESID DEFICITS Status: Acute (2) Chronic anemia Code(s): D64.9 - ANEMIA, UNSPECIFIED Status: Chronic (3) DM2 (diabetes mellitus, type 2) Status: Chronic Qualifiers: Diabetes mellitus oysterman insulin use: with usp use Diabetes mellitus complication status: with kidney complications Diabetes mellitus complication detail: with chronic kidney disease Chronic kidney disease stage : on chronic dialysis Qualified Code(s): E11.22 - Type 2 diabetes mellitus with diabetic chronic kidney disease; N18.6 - End stage renal disease; Z79.4 - rn long term care (current) use of insulin; Z99.2 - Dependence on renal dialysis (4) ESRD on peritoneal dialysis Code(s): N18.6 - END STAGE RENAL DISEASE; Z99.2 - DEPENDENCE ON RENAL DIALYSIS Status: Chronic (5) HTN (hypertension) Code(s): I10 - ESSENTIAL (PRIMARY) HYPERTENSION Status: Chronic Qualifiers: Hypertension type: essential hypertension Qualified Code(s): I10 - Essential (primary) hypertension (6) Hypothyroidism Code(s): E03.9 - HYPOTHYROIDISM, UNSPECIFIED Status: Chronic Qualifiers: Hypothyroidism type: unspecified Qualified Code(s): E03.9 - Hypothyroidism , unspecified (7) Encephalopathy Code(s): G93.40 - ENCEPHALOPATHY, UNSPECIFIED Status: Acute (8) Hypokalemia Code(s): E87.6 - HYPOKALEMIA Status: Acute - Plan Plan: Acute CVA - [facility] but bed may not be available for a couple days - Cont asa, plavix, and statin - Echo and carotid US negative for embolic sources - Pt's current sx may be at the very least in part due to manifestation of her CVA, will continue to monitor Delirium - Medication Overdose vs CVA Sx vs Hospital Associated Delirium - Much improved this morning, normal mentation during my exam - Nurse did not pt experience mild hallucitory sx earlier this morning - Polypharmacy corrected - Continually re-orient HTN - Resumed home bp: metoprolol and nifedipine - BP now normalized, continue to monitor CAD - Continue current regimen AV Block - Resolved - Remains resolved - Continue to avoid QT prolonging agents Hypothyroid - TSH: 25.5 - Likely 2/2 inappropriate administration, discussed appropriate way to take Rx - Resume home dose synthroid DM - Diet controlled at home - Last HgbA1C reported to be 8.0 - Currently 7.3 - Accuchecks and mild SSI ESRD on PD - Nephro consulted - Continue home regimen PCP: [facility] - [facility] CODE STATUS: DNI, cardiac code only Disposition: Stroke obs. mental status monitoring. Monitoring for improvement in mental status, awaiting bed availability at [facility]. Addendum - Attending - Attending Attestation Date/Time: 11/27/19 [id number] I personally evaluated the patient and discussed the management with Dr. Pagan. I agree with the History, Examination, Assessment and Plan documented above with any addition or exceptions noted below. Patient here for new CVA complicated by supratherapeutic level of Wellbutrin being administered. She is improved, QT decreasing, and mentation almost back to baseline. She will be stable for discharge once accepted to inpatient rehab.
[2019-11-27] MEDS: Levothyroxine Sodium 112 MCG TAB PO SCH (05:47)
[2019-11-27] MEDS: Levothyroxine Sodium 25 MCG TAB PO SCH (05:47)
[2019-11-27] MEDS: Calcium Carbonate 500 MG ChewTAB PO PRN ×4 (05:47→20:27)
[2019-11-27] MEDS: HumaLOG 300 UNITS/3 ML VIAL SC PRN ×2 (06:01→11:49)
[2019-11-27 06:05] LABS: #Eosinphils 0.1 thou/uL (0.0-0.7); #Lymphocytes 2.5 thou/uL (1.20-3.40); #Monocytes 1.2 thou/uL (0.11-0.59); #Neutrophils 12.4 thou/uL (1.40-6.50); %Basophils 0.2 % (0.0-1.0); %Eosinophils 0.8 % (0.0-10.0); %Lymphocytes 15.1 % (21.0-51.0); %Monocytes 7.4 % (0.0-10.0); %Neutrophils 76.5 % (42.0-75.0); Hemoglobin 13.1 g/dL (12.0-16.0); Mean Corpuscular HGB CONC 33.2 g/dL (32.0-36.0); Mean Corpuscular Hemoglobin 27.4 pg (27.0-31.0); Mean Corpuscular Volume 82.5 fL (78.0-98.0); Mean Platelet Volume 7.6 fL (7.4-10.4); Platelet Count 349 thou/uL (130-400); RBC Distribution Width 11.9 % (11.5-14.5); Red Blood Cell (RBC) Count 4.76 mill/uL (4.20-5.40); White Blood Cell (WBC) Count 16.3 thou/uL (4.8-10.8)
[2019-11-27 06:24] LABS: ALT (SGPT) 8 U/L (8-55); AST (SGOT) 8 U/L (5-34); Albumin 3.4 g/dL (3.5-5.0); Alkaline Phosphatase 134 U/L (40-110); Anion Gap 23 mmol/L (10-20); BUN (Urea Nitrogen) 30 mg/dL (9.8-20.1); Bilirubin, Total 0.3 mg/dL (0.2-1.2); Calc. Creatinine Clearance 5 mL/min (70-130); Calcium 8.3 mg/dL (7.8-10.44); Carbon Dioxide 23 mmol/L (22-29); Chloride 93 mmol/L (98-107); Estimated GFR-MDRD 3; Globulin 3.4 g/dL (2.4-3.5); Glucose 229 mg/dL (70-105); Magnesium 2.5 mg/dL (1.6-2.6); Phosphorus 7.5 mg/dL (2.3-4.7); Protein, Total 6.8 g/dL (6.0-8.3); Sodium 136 mmol/L (136-145)
[2019-11-27 06:28] LABS: Potassium 2.8 mmol/L (3.5-5.1)
[2019-11-27] MEDS ORDERED: Potassium Chloride 20 MEQ/100 ML PREMIX BAG IVPB SCH (06:45)
[2019-11-27] MEDS ORDERED: Potassium Chloride 20 MEQ TAB PO SCH (06:45)
--- NOTE | 2019-11-27 08:17 | PRG ---
DATE OF SERVICE: 11/27/2019 SUBJECTIVE: Patient was seen and examined at bedside and overnight events noted. Patient denies any shortness of breath or chest pain or palpitation. No history of nausea or vomiting or diarrhea or fever or chills or cramps. OBJECTIVE: GENERAL: This is a well-built female, in no apparent distress. VITAL SIGNS: Temperature 97.7. Heart rate 78. Respiratory rate 16. Blood pressure 161/74. HEENT: Atraumatic, normocephalic. Oral mucosa is moist. NECK: Supple. CARDIOVASCULAR: S1, S2 heard. Rate and rhythm regular. RESPIRATORY: Clear to auscultation. GASTROINTESTINAL: Abdomen is soft. MUSCULOSKELETAL: No tenderness. No edema. DERMATOLOGIC: No skin rash. NEUROLOGIC: Alert and awake and oriented x3. No focal neurologic deficits. Moving all the extremities. PSYCHIATRIC: Mood and affect normal. LABORATORY DATA: Potassium 2.8, BUN is 30, and creatinine is 12.45. ASSESSMENT AND PLAN: 1. End-stage renal disease. Continue on peritoneal dialysis as tolerated. 2. Hyponatremia. Limit fluid intake. 3. Hypokalemia, replace. 4. Acidosis, stable. 5. Altered mentation seems to be better most likely from medication. 6. Edema. 7. Hypertension, stable. Replace potassium. Continue PD as tolerated. Mentation seems to be better. Job ID: [id number]
[2019-11-27] MEDS: Calcium Acetate 667 MG CAP PO SCH ×3 (09:05→17:13)
[2019-11-27] MEDS: Acetaminophen 325 MG TAB PO PRN ×2 (09:05→17:14)
[2019-11-27] MEDS: Calcitriol 0.25 MCG CAP PO SCH (09:05)
[2019-11-27] MEDS: Aspirin 81 mg Enteric Coated Tablet PO SCH (09:05)
[2019-11-27] MEDS: Famotidine 20 MG TAB PO SCH (09:05)
[2019-11-27] MEDS: Clopidogrel Bisulfate 75 MG TAB PO SCH (09:05)
[2019-11-27] MEDS: Heparin 5,000 UNITS/ML VIAL SC SCH ×3 (09:06→20:31)
[2019-11-27] MEDS: hydrALAZINE 20 MG/ML VIAL SLOW IVP PRN ×2 (11:58→15:58)
[2019-11-27 12:39] LABS: Anion Gap 22 mmol/L (10-20); BUN (Urea Nitrogen) 31 mg/dL (9.8-20.1); Calc. Creatinine Clearance 5 mL/min (70-130); Calcium 8.7 mg/dL (7.8-10.44); Carbon Dioxide 24 mmol/L (22-29); Chloride 95 mmol/L (98-107); Estimated GFR-MDRD 3; Glucose 183 mg/dL (70-105); Potassium 4.4 mmol/L (3.5-5.1); Sodium 137 mmol/L (136-145)
[2019-11-27] MEDS ORDERED: hydrALAZINE 20 MG/ML VIAL SLOW IVP PRN (16:23)
[2019-11-27] MEDS: NIFEdipine XL 90 MG TAB PO SCH (20:27)
[2019-11-27] MEDS: Atorvastatin Calcium 40 MG TAB PO SCH (20:31)
--- NOTE | 2019-11-28 05:46 | PDOC.FM ---
- Subjective Subjective: Pt notes that she continually feels better. Feels her thoughts are more clear. She did get a good amount of rest last night. No acute events. Agrees with plan for possible DC to [facility] re[facility] today pending bed availability. - Objective Vital Signs & Weight: Vital Signs (12 hours) Temp Pulse Resp BP BP Pulse Ox 11/28/19 04:00 97.3 F L 80 16 139/75 97 11/28/19 00:00 98 F 74 16 211/108 H 98 11/27/19 20:27 74 199/97 H 11/27/19 20:00 98.6 F 75 16 203/109 H 99 Weight Admit Weight 62.227 kg Weight 62.227 kg I&O: 11/26/19 11/27/19 11/28/19 06:59 06:59 06:59 Intake Total 540 1340 Output Total 1000 Balance 540 340 Result Diagrams: 11/28/19 08:55 11/28/19 08:55 Phys Exam - Physical Examination Constitutional: NAD HEENT: moist MMs, sclera anicteric Neck: full ROM Respiratory: no wheezing, clear to auscultation bilateral Cardiovascular: RRR, no significant murmur Gastrointestinal: soft, non-tender Musculoskeletal: no edema, pulses present Neurological: non-focal, moves all 4 limbs Psychiatric: normal affect, A&O x 3 Skin: no rash, cap refill <2 seconds Dx/Plan (1) History of CVA (cerebrovascular accident) Code(s): Z86.73 - PRSNL HX OF TIA (TIA), AND CEREB INFRC W/O RESID DEFICITS Status: Acute (2) Chronic anemia Code(s): D64.9 - ANEMIA, UNSPECIFIED Status: Chronic (3) DM2 (diabetes mellitus, type 2) Status: Chronic Qualifiers: Diabetes mellitus jail insulin use: with rn long term care use Diabetes mellitus complication status: with kidney complications Diabetes mellitus complication detail: with chronic kidney disease Chronic kidney disease stage : on chronic dialysis Qualified Code(s): E11.22 - Type 2 diabetes mellitus with diabetic chronic kidney disease; N18.6 - End stage renal disease; Z79.4 - custodial (current) use of insulin; Z99.2 - Dependence on renal dialysis (4) ESRD on peritoneal dialysis Code(s): N18.6 - END STAGE RENAL DISEASE; Z99.2 - DEPENDENCE ON RENAL DIALYSIS Status: Chronic (5) HTN (hypertension) Code(s): I10 - ESSENTIAL (PRIMARY) HYPERTENSION Status: Chronic Qualifiers: Hypertension type: essential hypertension Qualified Code(s): I10 - Essential (primary) hypertension (6) Hypothyroidism Code(s): E03.9 - HYPOTHYROIDISM, UNSPECIFIED Status: Chronic Qualifiers: Hypothyroidism type: unspecified Qualified Code(s): E03.9 - Hypothyroidism , unspecified (7) Encephalopathy Code(s): G93.40 - ENCEPHALOPATHY, UNSPECIFIED Status: Acute (8) Hypokalemia Code(s): E87.6 - HYPOKALEMIA Status: Acute - Plan Plan: Acute CVA - [facility], awaiting bed availability - Cont asa, plavix, and statin Delirium - Medication Overdose vs CVA Sx vs Hospital Associated Delirium - Much improved this morning, normal mentation during my exam - Nurse did not pt experience mild hallucitory sx earlier this morning - Polypharmacy corrected - Continually re-orient HTN - Resumed home bp: metoprolol and nifedipine - BP continues to fluctuate dramatically likely 2/2 hx of autonomic dysfunction - Increased threshold for prn anti-hypertensives to decrease larger fluctuations in BP that may precipitate perfusion adverse effects CAD - Continue current regimen AV Block - Resolved - Remains resolved - Continue to avoid QT prolonging agents - Repeat EKG today: Hypothyroid - TSH: 25.5 - Likely 2/2 inappropriate administration, discussed appropriate way to take Rx - Resume home dose synthroid DM - Diet controlled at home - Last HgbA1C reported to be 8.0 - Currently 7.3 - Accuchecks and mild SSI - Requiring 2-4 units of humolog daily ESRD on PD - Nephro consulted - Continue home regimen PCP: [facility] - [facility] CODE STATUS: DNI, cardiac code only Disposition: Stroke obs. mental status monitoring. Monitoring for improvement in mental status, awaiting bed availability at [facility]hab. Addendum - Attending - Attending Attestation Date/Time: 11/28/19 1315 I personally evaluated the patient at 0755 am and discussed the management with Dr. Pagan. I agree with the History, Examination, Assessment and Plan documented above with any addition or exceptions noted below. Ischemic CVA- recovering well. Awaiting placement at [facility] rehab Epigastric pain- patient states she is having buring pain and sour taste in her mouth. soft, nd. mod ttp in epigastrium. no rebound or guarding. WIll add PPI and check labs Labile bp-continue home meds plus prn when severely elevated. ESRD- on peritoneal dialysis T2DM
[2019-11-28] MEDS: HumaLOG 300 UNITS/3 ML VIAL SC PRN (06:44)
[2019-11-28] MEDS: Levothyroxine Sodium 25 MCG TAB PO SCH (06:45)
[2019-11-28] MEDS: Levothyroxine Sodium 112 MCG TAB PO SCH (06:45)
[2019-11-28] MEDS: Calcium Carbonate 500 MG ChewTAB PO PRN (08:53)
[2019-11-28] MEDS: Aspirin 81 mg Enteric Coated Tablet PO SCH (08:54)
[2019-11-28] MEDS: Calcitriol 0.25 MCG CAP PO SCH (08:55)
[2019-11-28] MEDS: Clopidogrel Bisulfate 75 MG TAB PO SCH (08:55)
[2019-11-28] MEDS: Famotidine 20 MG TAB PO SCH (08:56)
[2019-11-28] MEDS: Heparin 5,000 UNITS/ML VIAL SC SCH ×2 (08:57→15:24)
[2019-11-28] MEDS ORDERED: Pantoprazole 40 MG VIAL IVP SCH (09:00)
[2019-11-28] MEDS ORDERED: Lidocaine 2% Viscous Solution 20 ML, Aluminum & Magnesium Hydroxide 30 ML, Donnatal Eli... SSW SCH (09:00)
[2019-11-28 09:16] LABS: #Basophils 0.1 thou/uL (0.0-0.2); #Eosinphils 0.2 thou/uL (0.0-0.7); #Lymphocytes 2.5 thou/uL (1.20-3.40); #Monocytes 1.3 thou/uL (0.11-0.59); #Neutrophils 12.4 thou/uL (1.40-6.50); %Basophils 0.5 % (0.0-1.0); %Eosinophils 0.9 % (0.0-10.0); %Lymphocytes 15.4 % (21.0-51.0); %Monocytes 7.7 % (0.0-10.0); %Neutrophils 75.5 % (42.0-75.0); Hemoglobin 13.5 g/dL (12.0-16.0); Mean Corpuscular HGB CONC 31.8 g/dL (32.0-36.0); Mean Corpuscular Hemoglobin 26.6 pg (27.0-31.0); Mean Corpuscular Volume 83.6 fL (78.0-98.0); Mean Platelet Volume 7.9 fL (7.4-10.4); Platelet Count 342 thou/uL (130-400); RBC Distribution Width 12.2 % (11.5-14.5); Red Blood Cell (RBC) Count 5.09 mill/uL (4.20-5.40); White Blood Cell (WBC) Count 16.4 thou/uL (4.8-10.8)
[2019-11-28 09:34] LABS: ALT (SGPT) 11 U/L (8-55); AST (SGOT) 10 U/L (5-34); Albumin 3.3 g/dL (3.5-5.0); Alkaline Phosphatase 148 U/L (40-110); Anion Gap 21 mmol/L (10-20); BUN (Urea Nitrogen) 32 mg/dL (9.8-20.1); Bilirubin, Total 0.3 mg/dL (0.2-1.2); Calc. Creatinine Clearance 5 mL/min (70-130); Carbon Dioxide 25 mmol/L (22-29); Chloride 95 mmol/L (98-107); Estimated GFR-MDRD 3; Globulin 3.4 g/dL (2.4-3.5); Glucose 118 mg/dL (70-105); Lipase 499 U/L (8-78); Protein, Total 6.7 g/dL (6.0-8.3); Sodium 137 mmol/L (136-145)
--- NOTE | 2019-11-28 09:45 | PRG ---
DATE OF SERVICE: 11/28/2019 SUBJECTIVE: Patient was seen and examined at bedside and overnight events noted. Patient denies any shortness of breath or chest pain or palpitation. No history of nausea or vomiting or diarrhea or fever or chills or cramps. OBJECTIVE: GENERAL: This is a thin-built female, in no apparent distress. VITAL SIGNS: Temperature 97.7. Heart rate 77. Respiratory rate 16. Blood pressure 121/68. HEENT: Atraumatic, normocephalic. Oral mucosa is moist NECK: Supple. CARDIOVASCULAR: S1, S2 heard. Rate and rhythm regular. RESPIRATORY: Clear to auscultation. GASTROINTESTINAL: Abdomen is soft. MUSCULOSKELETAL: No tenderness. No edema. DERMATOLOGIC: No skin rash. NEUROLOGIC: Alert and awake and oriented X3. No focal neurologic deficits. Moving all the extremities. PSYCHIATRIC: Mood and affect normal. LABORATORY DATA: No labs done today. ASSESSMENT AND PLAN: 1. End-stage renal disease. Continue peritoneal dialysis as tolerated. 2. Hypertension, stable. 3. Edema with some fluid overload. 4. Chronic anemia. 5. Altered mentation, better. Continue peritoneal dialysis as tolerated. Hypokalemia, better. Job ID: [id number]
[2019-11-28] MEDS: Calcium Acetate 667 MG CAP PO SCH ×2 (09:58→13:19)
[2019-11-28] MEDS ORDERED: Lidocaine 5% Patch TD SCH (10:00)
[2019-11-28 16:30] VITALS: BP 161/89; TEMP 98.2
[2019-11-28] MEDS: Acetaminophen 325 MG TAB PO PRN (16:47)
[2019-11-28] MEDS ORDERED: Lidocaine Patch Removal 1 EACH TOP SCH (21:00)
[2019-11-29] MEDS ORDERED: Lidocaine 5% Patch TD SCH ×2 (09:00)
--- NOTE | 2019-11-30 02:41 | DIS ---
DATE OF ADMISSION: 11/24/2019 DATE OF DISCHARGE: 11/28/2019 ADMITTING ATTENDING: Sai Field MD DISCHARGE ATTENDING: Janey Gates MD RESIDENT: Sd Pagan DO. CONSULTS: 1. Nephrology, Dr. Kenny 2. Neurology, Dr. Lawrence. PROCEDURES: None. IMAGING: CT brain without contrast; findings, interval subacute appearing right basal ganglia lacunar infarct. MRI brain without contrast; findings, foci of acute infarction noted bilaterally consistent with embolic process. No associated hemorrhage, midline shift, or mass effect. Carotid Doppler ultrasound; findings, no hemodynamically significant stenosis. Echocardiogram; findings, ejection fraction 60% to 65% with moderate concentric left ventricular hypertrophy and moderate annular calcification. PRIMARY DIAGNOSES: 1. Cerebrovascular accident. 2. Medication overdose. 3. Hypertensive emergency. 4. Hypothyroidism. SECONDARY DIAGNOSES: 1. End-stage renal disease, on peritoneal dialysis. 2. Coronary artery disease. 3. History of cerebrovascular accident. 4. Diabetes mellitus. DISCHARGE MEDICATIONS: 1. Levothyroxine 137 mcg daily. 2. Atorvastatin 40 mg daily. 3. Calcitriol 0.5 mcg daily. 4. Nifedipine 90 mg at bedtime. 5. Metoprolol succinate 25 mg daily. 6. Buspirone 5 mg daily p.r.n. 7. Sensipar 30 mg b.i.d. 8. Sertraline 25 mg daily. 9. Aspirin 81 mg daily. 10. Clopidogrel 75 mg daily. 11. Lidoderm 5% patch one patch daily. 12. Pantoprazole 40 mg daily. Discontinued medications: 1. Levothyroxine 125 mcg daily. 2. Bupropion 100 mg t.i.d. 3. Aspirin 325 mg daily. HISTORY OF PRESENT ILLNESS AND HOSPITAL COURSE: A 54-year-old female with extensive past medical history, presented to the ED for evaluation of right-sided weakness. The patient had CVA in August of 2019; at which time, she experienced increased confusion, word-finding difficulties, and intense fatigue. The patient states that she seems to have developed similar symptoms recently, prompting her to seek evaluation. In the emergency department, the patient was found to have severely elevated blood pressures and received labetalol 20 mg IV x2. She also had a head CT that showed subacute lacunar infarcts in her basal ganglia. The patient was subsequently admitted to the Stroke floor for continued neurologic monitoring and further neuroimaging. Following day, an MRI was ordered and showed foci of acute infarction bilaterally consistent with embolic process with no associated hemorrhage, midline shift, or mass effect. Due to these findings, the patient had an echocardiogram performed, which did not show any source of embolism. Review of the patient's record also showed a ИРИНА within the last 4 months that also did not note any embolic source or shunt. During the patient's stay, she initially had a rapid resolution in her right-sided weakness, but then began to develop delusions and hallucinations. It was found that the patient had been receiving an inappropriate dose of her home bupropion, rather than 100 mg t.i.d., the patient had received 300 mg a.c. for 2 days. Poison Control was also contacted immediately once the inappropriate drug administration was noted. They recommended serial monitoring of the patient and predicted that her symptoms would resolve within 24 hours of the last administration of medication The patient was then serially monitored with EKGs to trend the patient's QT prolongation. Over the next few days, the patient had improvement in her hallucinations and delusions. Her QTc also gradually reduced to the point that it was the same as noted on admission. Throughout the patient's stay, the patient worked with PT and OT as well as Speech Therapy. The patient was screened for inpatient rehab and subsequently improved. The patient was also seen by Dr. Deisi Kenny during her stay, who managed her peritoneal dialysis. At the time of discharge, the patient was still noting some mild hallucinations, but was aware of this. Her baseline mental status was also much improved. The patient agreed with discharge to inpatient rehab for further care and therapies to better improve her long-term outcomes from her multifocal stroke. The patient agreed to follow up with both Neurology and her PCP as an outpatient. DISCHARGE INSTRUCTIONS: Location: [facility]. Diet: Heart healthy, carb conscious. Activity: As tolerated and recommended by PT, OT. Followup: Follow up with PCP at [facility] within 7 days, Neurology within 2 to 4 weeks, and Nephrology, Dr. Kenny as directed. Job ID: [id number] [facility]
--- NOTE | 2019-11-30 18:38 | EKG ---
Test Reason : Blood Pressure : / mmHG Vent. Rate : 070 BPM Atrial Rate : 070 BPM P-R Int : 188 ms QRS Dur : 096 ms QT Int : 476 ms P-R-T Axes : 014 001 068 degrees QTc Int : 514 ms Normal sinus rhythm Septal infarct (cited on or before 16-OCT-2017) Prolonged QT Abnormal ECG When compared with ECG of 23-NOV-2019 12:39, (Unconfirmed) Questionable change in initial forces of Anterior leads Confirmed by APOORVA CORBETT, SJavi (4) on 11/30/2019 6:38:28 PM Referred By: GAEL Confirmed By:DR. Gil GUERIN MD
--- NOTE | 2019-11-30 18:47 | EKG ---
Test Reason : Blood Pressure : / mmHG Vent. Rate : 074 BPM Atrial Rate : 074 BPM P-R Int : 186 ms QRS Dur : 098 ms QT Int : 488 ms P-R-T Axes : -16 020 069 degrees QTc Int : 541 ms Normal sinus rhythm Septal infarct (cited on or before 16-OCT-2017) Prolonged QT Abnormal ECG When compared with ECG of 24-NOV-2019 11:54, (Unconfirmed) No significant change was found Confirmed by APOORVA CORBETT, SJavi (4) on 11/30/2019 6:46:45 PM Referred By: ARTUR MAY Confirmed By:DR. Gil GUERIN MD
--- NOTE | 2019-11-30 18:55 | EKG ---
Test Reason : Blood Pressure : / mmHG Vent. Rate : 072 BPM Atrial Rate : 072 BPM P-R Int : 182 ms QRS Dur : 094 ms QT Int : 462 ms P-R-T Axes : 008 024 073 degrees QTc Int : 505 ms Normal sinus rhythm Septal infarct (cited on or before 16-OCT-2017) Prolonged QT Abnormal ECG When compared with ECG of 26-NOV-2019 07:24, (Unconfirmed) No significant change was found Confirmed by APOORVA CORBETT, SJavi (4) on 11/30/2019 6:54:35 PM Referred By: BRY RenoR Confirmed By:DR. Gil GUERIN MD
--- NOTE | 2019-11-30 19:00 | EKG ---
Test Reason : Blood Pressure : / mmHG Vent. Rate : 076 BPM Atrial Rate : 076 BPM P-R Int : 166 ms QRS Dur : 092 ms QT Int : 412 ms P-R-T Axes : 016 011 065 degrees QTc Int : 463 ms Normal sinus rhythm Anteroseptal infarct (cited on or before 16-OCT-2017) Abnormal ECG When compared with ECG of 27-NOV-2019 07:37, (Unconfirmed) Questionable change in initial forces of Anterior leads Confirmed by APOORVA CORBETT, SJavi (4) on 11/30/2019 6:59:39 PM Referred By: GAEL Confirmed By:DR. Gil GUERIN MD
== END 2019-11-28 17:12 | DRG 64 ==
LOC: ERS 12:15 → 2SE 15:45 → OBSVTOIN 11-24 10:40
PROVIDERS: ADMIT Student in an Organized Health Care Education/Training Program; ATTEND Student in an Organized Health Care Education/Training Program
DX: I63.9 Cerebral infarction, unspecified (principal); N18.6 End stage renal disease; G81.91 Hemiplegia, unspecified affecting right dominant side; I12.0 Hypertensive chronic kidney disease with stage 5 chronic kidney disease or end stage renal disease; E87.1 Hypo-osmolality and hyponatremia; E87.2 Acidosis; G93.40 Encephalopathy, unspecified; I25.10 Atherosclerotic heart disease of native coronary artery without angina pectoris; I44.30 Unspecified atrioventricular block; E87.6 Hypokalemia; F41.9 Anxiety disorder, unspecified; F32.9 Major depressive disorder, single episode, unspecified; D63.1 Anemia in chronic kidney disease; E03.9 Hypothyroidism, unspecified; I25.2 Old myocardial infarction; Z95.1 Presence of aortocoronary bypass graft; Z99.2 Dependence on renal dialysis; Z90.49 Acquired absence of other specified parts of digestive tract; Z98.84 Bariatric surgery status; Z90.710 Acquired absence of both cervix and uterus; Z88.6 Allergy status to analgesic agent; Z88.8 Allergy status to other drugs, medicaments and biological substances; T50.911A Poisoning by multiple unspecified drugs, medicaments and biological substances, accidental (unintentional), initial encounter; R41.0 Disorientation, unspecified
CPT/HCPCS: 36415; 36416; 70450; 70551; 80048; 80053; 80061; 82553; 82607; 82746; 83036; 83690; 83735; 84100; 84443; 84484; 85025; 85610; 85730; 87340; 90945; 93005; 93010; 93306; 93880; C9113; G0257; J0360; J1644; J2060; J2405; J2550; J3480; S0028

== ENCOUNTER 2019-12-24 15:28 | Outpatient (CLI) | payer MEDICARE ==
--- NOTE | 2019-12-24 16:01 | RAD ---
CERVICAL SPINE SERIES WITH FLEXON AND EXTENSION FIVE VIEWS: 12/24/19 HISTORY: Postop. Patient has neck pain and left shoulder pain. Anterior cervical fusion extends from C4 to C6 with disc implants at the intervening disc levels. Sev ere disc narrowing is seen at C3-4 with retrolisthesis of C3 on C4 which reduces slightly with flexio n and appears to increase slight in extension. IMPRESSION: Postoperative changes of the spine. Retrolisthesis of C3 on C4 with severe disc narrowing in which th e retrolisthesis increases in extension and reduces in flexion. POS: TPC
== END 2019-12-24 15:29 | disposition home or self-care (01) ==
LOC: TBSIIMAG 15:28
PROVIDERS: ATTEND Neurological Surgery
DX: M48.02 Spinal stenosis, cervical region (principal); M43.12 Spondylolisthesis, cervical region; M50.31 Other cervical disc degeneration, high cervical region; Z98.890 Other specified postprocedural states
CPT/HCPCS: 72050

== ENCOUNTER 2020-01-28 11:22 | Inpatient (IN) | payer MEDICARE ==
--- NOTE | 2020-01-28 11:37 | CT ---
Exam: Head CT without contrast HISTORY: Level 1 stroke. Facial droop and dysarthria starting at 10:00 AM this morning. COMPARISON: 11/23/2019 FINDINGS: Hemorrhage: No intraparenchymal hemorrhage or extra-axial hematoma. Brain parenchyma: Cortical jacobs-white matter differentiation is preserved. No mass effect or midline shift. Basilar cisterns are patent.Stable remote infarct involving the right caudate nucleus and anterior aspect of the deep jacobs matter structures Ventricular system: Ventricles and sulci are patent and symmetric. Calvarium: Intact. Sinuses and mastoid air cells: Adequate aeration. Incidentals: Stable right parafalcine calcification, measuring 0.8 cm IMPRESSION: 1. No acute intracranial process. 2. Stable remote lacunar infarct involving the right deep jacobs matter structures. 3. Results of study discussed with Dr. Dodson 01/28/2020 11:34 AM Code CR
[2020-01-28] MEDS ORDERED: Aspirin 325 MG TAB ONE (11:43)
[2020-01-28] MEDS ORDERED: niCARdipine 20MG In NaCl 20 MG/200 ML BAG ONE (11:43)
[2020-01-28] MEDS ORDERED: Dextrose 50% Abboject 50 ML SYRINGE SLOW IVP PRN (13:52)
[2020-01-28] MEDS ORDERED: Dextrose 5% in Water 1,000 ML IV PRN (13:52)
[2020-01-28] MEDS ORDERED: Acetaminophen 325 MG TAB PO PRN (13:52)
[2020-01-28] MEDS ORDERED: HumaLOG 300 UNITS/3 ML VIAL SC PRN (13:52)
[2020-01-28 13:55] VITALS: BMI 23.2
--- NOTE | 2020-01-28 15:04 | MRI ---
BRAIN MRI WITHOUT IV CONTRAST: 01/28/20 HISTORY: Right sided weakness and slurred speech. COMPARISON: 11/24/2019. FINDINGS: There is a tiny 0.5 cm diameter focus of diffusion hyperintensity and decreased signal on associated ADC map evidence for tiny acute punctate infarct in the right occipital lobe. There are stable scatte red areas of punctate chronic white matter ischemic changes and/or old infarct changes. There is a sm all evolving right basal ganglia infarct. There are some sinus mucosa changes more prominent in the r ight maxillary sinus. No focal mass or midline shift. No intra or extra-axial hemorrhage. There is so me motion artifact which lowers the sensitivity of this study. Stable right parafalcine calcification with low signal on gradient echo imaging. IMPRESSION: One tiny punctate acute infarct in the right occipital lobe. Otherwise, stable bilateral FLAIR and T2 hyperintensity foci including an evolving infarct in the right basal ganglia. No mass or bleed. Sinu s mucosal changes. Other findings as above, stable. No evidence for new transcortical infarct. POS: RRE
--- NOTE | 2020-01-28 15:07 | HP ---
PRIMARY CARE PHYSICIAN: Dr. Saima Hill at [facility]. The patient's academic services coordinator is Dr. Kenny. CHIEF COMPLAINT: "Slurring my words." HISTORY OF PRESENT ILLNESS: Ms. Sommer is a very pleasant 54-year-old female, who has a history of previous cerebrovascular accident as well as hypertension and hypothyroidism. She was in her usual state of health until this morning. She says at around 10:30, she was on her way to a medical appointment to an health and nutrition specialist when she says that she was not able to find the words that she wanted to say and her words seem to be slurred. She could think about what she wanted to convey, but the words just were not there. She somehow managed to be brought to the emergency room, where her symptoms started to improve. She also had an episode of right leg weakness when she was on her way to the bathroom in the ER. She said that she stood up and her right leg gave way and she fell to the ground. Also in the ER, she was found to be very hypertensive with an initial blood pressure of 217/94, and she is being admitted for hypertensive urgency and possible TIA. The patient denies any chest pain. No shortness of breath. No dizziness. No lightheadedness. Before and now, she did not know that she had any extremity weakness. She says that she had previous episode of stroke and was supposed to have had an event monitor placed, but she said she did wear it for 2 days, but then welled up in the hospital and then when she was discharged, never had a put back on. She was being evaluated for occult atrial fibrillation and once again, her journey lineman is Dr. Castle at [facility]. REVIEW OF SYSTEMS: All systems were reviewed and are negative except for that mentioned in the history of present illness. PAST MEDICAL HISTORY: Significant for acute cerebrovascular accident once in August and then once again in November of this year and that was August of 2019; hypertension; hypothyroidism; end-stage renal disease, on peritoneal dialysis; coronary artery disease; diabetes mellitus type 2; and orthostatic hypotension. PAST SURGICAL HISTORY: She has had toe reconstruction, gastric sleeve, section x2, hysterectomy, and cervical spine surgery. ALLERGIES: TO CODEINE, MORPHINE, TRAMADOL, AND TORADOL. SOCIAL HISTORY: She is . She has 2 children. She would like to be a full code. She is a nonsmoker and nondrinker. CURRENT MEDICATIONS: Include; 1. Nifedipine 30 mg only when her systolic blood pressure is greater than 140. 2. Dialyvite. 3. Levothyroxine 137 mcg p.o. daily. 4. Lipitor 40 mg daily. 5. Sensipar, she says she has been taken off that. 6. Hydroxyzine. 7. Aspirin 81 mg daily. 8. Pantoprazole 40 mg daily. PHYSICAL EXAMINATION: GENERAL: She is alert and oriented. She appears to be in no acute distress. She is well developed and well nourished. VITAL SIGNS: Currently; blood pressure was 160/70, heart rate 80, respiratory rate of 14, and she is afebrile. HEENT: Pupils are equal, round, and reactive. Extraocular muscles are intact. Her sclerae are anicteric. Throat, no erythema, no exudates. NECK: No adenopathy. No bruits. LUNGS: Clear to auscultation. There is no wheezing, no rales, no rhonchi. CARDIOVASCULAR: She has a normal S1 and S2. She did have a very faint 2/6 systolic murmur at the base. ABDOMEN: Soft, nontender, and nondistended. Positive for bowel sounds. No rebound. No guarding. No organomegaly. EXTREMITIES: There is trace edema. No calf tenderness. No joint effusions. NEUROLOGIC: Her cranial nerves 2 through 12 are grossly intact. There is no facial droop. She did have a little bit of lateral nystagmus. Her muscle strength in her upper extremity was 5/5 and on the lower extremity also 5/5. However, the right leg was just very slightly weaker than the left on extension at the quadriceps. The reflexes are 2+ and symmetric. SKIN AND INTEGUMENT: No skin changes, no rash. LABORATORY DATA: This will need to be reviewed. There is currently no acute lab work in our system. CT scan for imaging however, CT scan of the brain was negative for any acute findings and it is also noted in November, she had a carotid Doppler which was negative. An echo results from that time, also in November 2019 showed an EF of 60% to 65% and moderate LVH, normal PA pressure. ASSESSMENT: This is a pleasant 54-year-old female, who presents to the emergency room with dysarthria and some expressive aphasia and right-sided weakness. Since her stay in the ER, her expressive aphasia and dysarthria has resolved; however, she now has some slight right leg weakness. She also was extremely hypertensive and required a short course of IV Cardene, which has since been discontinued. She will be admitted to observation on the Stroke Unit. We will not repeat the echo and carotid Dopplers, which have already been done recently, but we will monitor her for signs of atrial fibrillation. Get her lipid panel and monitor her blood pressure. We will adjust her medicines as needed. Consult Neurology to see if any other recommendations. We will also get an MRI of the brain. 1. Hypertension. Reconcile and continue her home medications as well as check orthostatics and adjust as needed. 2. End-stage renal disease, on peritoneal dialysis. We will consult her academic services coordinator for maintenance hemodialysis. 3. Hypothyroidism. We will reconcile and restart her home medications. 4. Diabetes mellitus. We will place her on a sliding scale insulin. Job ID: [id number]
[2020-01-28] MEDS: hydrALAZINE 20 MG/ML VIAL SLOW IVP PRN (16:18)
[2020-01-28] MEDS: HumaLOG 300 UNITS/3 ML VIAL SC PRN (17:31)
[2020-01-28] MEDS ORDERED: hydrOXYzine 25 MG TAB PO PRN (17:42)
[2020-01-28] MEDS: Labetalol HCl 100 MG/20 ML VIAL SLOW IVP PRN (18:22)
--- NOTE | 2020-01-28 20:16 | CON ---
DATE OF CONSULTATION: REASON FOR CONSULTATION: Continuation of peritoneal dialysis. HISTORY OF PRESENT ILLNESS: This is a 54-year-old female, who presented to the hospital with possibly stroke-like symptoms, slurred speech, and facial droop and weakness. She dialyzes Saturday, Saturday, and Saturday. No labs have been done. I was consulted for continuation of the peritoneal dialysis. The patient denies any nausea, vomiting, or chest pain. PAST MEDICAL HISTORY: Significant for end-stage disease, chronic debility, history of CVA, hypertension, PD catheter, tunneled dialysis catheter, diabetes mellitus, orthostatic hypotension, history of gastric sleeve, , hysterectomy, cervical spine surgery. SOCIOECONOMIC HISTORY: No alcohol or drug use. FAMILY HISTORY: Negative for ESRD. ALLERGIES: REVIEWED. MEDICATIONS: Home medication list reviewed. Hospital medication list reviewed. REVIEW OF SYSTEMS: A 15-point review of system was performed and negative except for positives noted above. GENERAL: HEAD: NECK: No swelling or lumps. NOSE: No epistaxis or discharge. EYES: No diplopia or pain. RESPIRATORY: CARDIOVASCULAR: GASTROINTESTINAL: /RADIOLOGICAL EQUIPMENT SPECIALIST: MUSCULOSKELETAL: No joint pain. NEUROPSYCHIATRIC SYSTEMS: No suicidal ideation. No ideation. SKIN: Denies any rash or ulcer. CONSTITUTIONAL: No fever or chills. PHYSICAL EXAMINATION: GENERAL: The patient is awake and alert. VITAL SIGNS: Afebrile, pulse 70, breathing at 16, blood pressure 160/70. HEENT: Head normocephalic and atraumatic. Eyes intact, no ulcers. Nose intact, no ulcers. Ears intact, no ulcers. NECK: Supple. No JVD. CHEST: Symmetrical and clear. CARDIOVASCULAR: Shows S1 and S2, no rub, no murmur. GASTROINTESTINAL: Abdomen is soft, bowel sounds positive. EXTREMITIES: Show no edema or ulcers. SKIN: Shows no rash or petechiae. MUSCULOSKELETAL: Shows no joint swelling or stiffness. GENITOURINARY: Shows no Marx or CVA tenderness. NEUROLOGIC: As per primary team. LABORATORY DATA: Pending. ASSESSMENT AND PLAN: 1. Stage 6 chronic kidney disease. Continue peritoneal dialysis. Recheck labs. 2. Hypertension, stable. 3. Anemia, stable. 4. Medication based on GFR, appropriate. Job ID: [id number]
[2020-01-28 20:38] LABS: Hemoglobin 10.5 g/dL (12.0-16.0)
[2020-01-28 20:56] LABS: Anion Gap 21 mmol/L (10-20); BUN (Urea Nitrogen) 54 mg/dL (9.8-20.1); Calc. Creatinine Clearance 6 mL/min (70-130); Calcium 8.3 mg/dL (7.8-10.44); Carbon Dioxide 19 mmol/L (22-29); Chloride 99 mmol/L (98-107); Estimated GFR-MDRD 4; Glucose 123 mg/dL (70-105); Potassium 4.7 mmol/L (3.5-5.1); Sodium 134 mmol/L (136-145)
[2020-01-28] MEDS: NIFEdipine XL 30 MG TAB PO SCH (21:00)
[2020-01-28] MEDS: busPIRone HCl 5 MG TAB PO SCH (21:00)
[2020-01-28] MEDS: Atorvastatin Calcium 40 MG TAB PO SCH (21:00)
[2020-01-28] MEDS: Aggrenox 200-25mg CAP PO SCH (21:00)
[2020-01-28] MEDS: Pregabalin 25 MG CAP PO SCH (21:01)
[2020-01-28] MEDS: Heparin 5,000 UNITS/ML VIAL SC SCH (21:37)
[2020-01-29 04:49] LABS: #Basophils 0.2 thou/uL (0.0-0.2); #Eosinphils 0.5 thou/uL (0.0-0.7); #Lymphocytes 4.2 thou/uL (1.20-3.40); %Basophils 1.2 % (0.0-1.0); %Eosinophils 3.4 % (0.0-10.0); %Lymphocytes 26.4 % (21.0-51.0); %Monocytes 6.3 % (0.0-10.0); %Neutrophils 62.8 % (42.0-75.0); Hemoglobin 10.4 g/dL (12.0-16.0); Mean Corpuscular HGB CONC 33.5 g/dL (32.0-36.0); Mean Corpuscular Hemoglobin 28.2 pg (27.0-31.0); Mean Corpuscular Volume 84.3 fL (78.0-98.0); Mean Platelet Volume 8.3 fL (7.4-10.4); Platelet Count 335 thou/uL (130-400); Red Blood Cell (RBC) Count 3.67 mill/uL (4.20-5.40)
[2020-01-29 05:20] LABS: Anion Gap 22 mmol/L (10-20); BUN (Urea Nitrogen) 58 mg/dL (9.8-20.1); Calc. Creatinine Clearance 6 mL/min (70-130); Calcium 8.4 mg/dL (7.8-10.44); Carbon Dioxide 21 mmol/L (22-29); Cardiac Risk 4.2 (Less than 4.5); Chloride 98 mmol/L (98-107); Cholesterol 241 mg/dl (< 200 Desired); Estimated GFR-MDRD 4; Glucose 123 mg/dL (70-105); HDL Cholesterol 57 mg/dL (>60 Neg Risk); LDL Cholesterol, Calculated 143 mg/dL; Potassium 4.5 mmol/L (3.5-5.1); Sodium 136 mmol/L (136-145); Triglycerides 207 mg/dL (Less than 150)
[2020-01-29] MEDS: Levothyroxine Sodium 112 MCG TAB PO SCH (05:44)
[2020-01-29 08:04] LABS: #Basophils 0.2 thou/uL (0.0-0.2); #Eosinphils 0.5 thou/uL (0.0-0.7); #Lymphocytes 4.4 thou/uL (1.20-3.40); #Monocytes 1.1 thou/uL (0.11-0.59); #Neutrophils 9.8 thou/uL (1.40-6.50); %Eosinophils 3.4 % (0.0-10.0); %Lymphocytes 27.5 % (21.0-51.0); %Monocytes 6.9 % (0.0-10.0); %Neutrophils 61.1 % (42.0-75.0); Hemoglobin 10.9 g/dL (12.0-16.0); Mean Corpuscular HGB CONC 32.7 g/dL (32.0-36.0); Mean Corpuscular Hemoglobin 27.9 pg (27.0-31.0); Mean Corpuscular Volume 85.2 fL (78.0-98.0); Mean Platelet Volume 8.3 fL (7.4-10.4); Platelet Count 350 thou/uL (130-400); RBC Distribution Width 12.9 % (11.5-14.5); Red Blood Cell (RBC) Count 3.91 mill/uL (4.20-5.40)
--- NOTE | 2020-01-29 08:08 | PRG ---
DATE OF SERVICE: 01/29/2020 SUBJECTIVE: This is a very pleasant 54-year-old female being seen for end-stage renal disease. The patient denies any nausea, vomiting, or chest pain. OBJECTIVE: GENERAL: The patient is resting. VITAL SIGNS: Afebrile, pulse 91, breathing at 16, blood pressure 134/72. HEENT: Head normocephalic and atraumatic. Eyes intact, no ulcers. Nose intact, no ulcers. Ears intact, no ulcers. Neck: Supple. No JVD. Chest: Symmetrical and clear. Cardiovascular: Shows S1 and S2, no rub, no murmur. Gastrointestinal: Abdomen is soft, bowel sounds positive. Extremities: Show no edema or ulcers. Skin: Shows no rash or petechiae. Musculoskeletal: Shows no joint swelling or stiffness. Genitourinary: Shows no Marx or CVA tenderness. Neurologic: Motor intact. Cranial nerves intact. LABORATORY DATA: Labs show hemoglobin is 10.4. Potassium is 4.5. ASSESSMENT AND PLAN: 1. Stage 6 chronic kidney disease. Continue peritoneal dialysis. 2. Hypertension, stable. 3. Anemia, stable. 4. Medication based on GFR appropriate. Job ID: [id number]
[2020-01-29 08:13] LABS: INR-International Normal Ratio 0.9; Prothrombin Time 12.3 SEC (12.0-14.7)
[2020-01-29 08:15] LABS: ALT (SGPT) 28 U/L (8-55); AST (SGOT) 17 U/L (5-34); Albumin 2.8 g/dL (3.5-5.0); Alkaline Phosphatase 109 U/L (40-110); Anion Gap 22 mmol/L (10-20); BUN (Urea Nitrogen) 57 mg/dL (9.8-20.1); Bilirubin, Total 0.3 mg/dL (0.2-1.2); CK (CPK) 38 U/L (29-168); Calc. Creatinine Clearance 6 mL/min (70-130); Calcium 8.4 mg/dL (7.8-10.44); Carbon Dioxide 19 mmol/L (22-29); Chloride 98 mmol/L (98-107); Estimated GFR-MDRD 4; Globulin 3.1 g/dL (2.4-3.5); Glucose 113 mg/dL (70-105); Protein, Total 5.9 g/dL (6.0-8.3); Sodium 134 mmol/L (136-145)
--- NOTE | 2020-01-29 08:36 | CT ---
CT OF THE BRAIN WITHOUT CONTRAST: COMPARISON: 01/28/2020. HISTORY: Code Green and stroke. Right-sided weakness and aphasia. TECHNIQUE: Multiple continuous axial images were obtained in a CT of the brain without contrast. FINDINGS: There are scattered hypodensities in the subcortical and periventricular white matter, likely seconda ry to small-vessel ischemic disease. There is a stable calcification adjacent to the anterior falx. There is no evidence of hydrocephalus, intracranial hemorrhage, or extraaxial fluid collection. No new large confluent infarction is appreciated. The calvarium and overlying soft tissues are unremarkable. The visualized paranasal sinuses and mast oid air cells are well aerated. IMPRESSION: No evidence of acute intracranial abnormality. Dr. Pereira notified of the findings at 8:11 a.m. on 01/29/2020. CODE CR
[2020-01-29 08:38] LABS: CKMB 1.8 ng/mL (0-6.6)
[2020-01-29] MEDS ORDERED: Aspirin 325 mg Enteric Coated Tablet PO SCH (09:00)
[2020-01-29] MEDS ORDERED: Clopidogrel Bisulfate 75 MG TAB PO SCH (09:00)
--- NOTE | 2020-01-29 09:13 | PDOC.HOSPP ---
- Subjective Encounter Date: 01/29/20 Encounter Time: 09:11 Subjective: Ms. Hall was seen today in follow-up of CVA. The events of this morning were noted. She had recurrence of aphasia, and was drowsy, and noted some weakness in her right upper extremity. A code green was called. She had a stat CT scan of the brain done. TPA was not administered due to the recent CVA ( yesterday). - Objective Vital Signs & Weight: Vital Signs (12 hours) Temp Pulse Resp BP BP Pulse Ox 01/29/20 07:40 98.1 F 86 18 131/81 98 01/29/20 03:40 97.9 F 91 14 134/72 97 01/29/20 03:37 91 142/74 H 01/28/20 23:17 97.9 F 83 154/77 H 98 Weight Weight 146 lb I&O: 01/28/20 01/29/20 01/30/20 06:59 06:59 06:59 Intake Total 440 Balance 440 Result Diagrams: 01/29/20 07:47 01/29/20 07:47 Additional Labs: Accuchecks 01/29/20 01/29/20 01/28/20 07:50 05:54 16:57 POC Glucose 119 H 128 H 181 H 01/28/20 11:33 POC Glucose 226 H Hospitalist ROS - Medication Medications: Active Medications Generic Name Dose Route Start Last Admin Trade Name Freq PRN Reason Stop Dose Admin Atorvastatin Calcium 40 mg 01/28/20 21:00 01/28/20 21:00 Lipitor PO 40 mg HS BELA Administration Buspirone HCl 5 mg 01/28/20 21:00 01/28/20 21:00 Buspar PO 5 mg BID BELA Administration Dipyridamole/Aspirin 1 cap 01/28/20 21:00 01/28/20 21:00 Aggrenox PO 1 cap BID BELA Administration Heparin Sodium (Porcine) 5,000 units 01/28/20 21:00 01/28/20 21:37 Heparin SC 5,000 units BID BELA Administration Hydralazine HCl 10 mg 01/28/20 13:52 01/28/20 16:18 Apresoline SLOW IVP 10 mg Q4H PRN Administration SBP > 180 and HR < 70 Insulin Human Lispro 0 units 01/28/20 13:52 01/28/20 17:31 Humalog SC 2 unit .MODERATE SLIDING SC PRN Administration Moderate Correctional Scale Labetalol HCl 20 mg 01/28/20 17:41 01/28/20 18:22 Normodyne SLOW IVP 4 ml Q4H PRN Administration SBP GREATER THAN 160 Levothyroxine Sodium 112 mcg 01/29/20 06:00 01/29/20 05:44 Synthroid PO 112 mcg 0600 BELA Administration Nifedipine 30 mg 01/28/20 21:00 01/28/20 21:00 Procardia Xl PO 30 mg HS BELA Administration Pregabalin 25 mg 01/28/20 21:00 01/28/20 21:01 Lyrica PO 25 mg HS BELA Administration - Exam Eye: PERRL, anicteric sclera Heart: RRR, no murmur, no gallops, no rubs, normal peripheral pulses Respiratory: CTAB, no wheezes, no rales, no ronchi, normal chest expansion Gastrointestinal: soft, non-tender, non-distended, normal bowel sounds, no palpable masses, no hepatomegaly, no splenomegaly Extremities: no cyanosis, no edema Neurological: facial droop (+ mild facila droop, right upper extremity drift, and expressive aphasia) Hosp A/P (1) Acute CVA (cerebrovascular accident) Code(s): I63.9 - CEREBRAL INFARCTION, UNSPECIFIED Status: Acute (2) Hypertensive urgency Code(s): I16.0 - HYPERTENSIVE URGENCY Status: Acute (3) CAD (coronary artery disease) Code(s): I25.10 - ATHSCL HEART DISEASE OF [place] CORONARY ARTERY W/O ANG PCTRS Status: Chronic Qualifiers: Coronary Disease-Associated Artery/Lesion type: bypass graft [place] vs. transplanted heart: [place] heart Associated angina: without angina Qualified Code(s): I25.810 - Atherosclerosis of coronary artery bypass graft(s) without angina pectoris (4) DM2 (diabetes mellitus, type 2) Status: Chronic Qualifiers: Diabetes mellitus long lines operator insulin use: with long-term use Diabetes mellitus complication status: with kidney complications Diabetes mellitus complication detail: with chronic kidney disease Chronic kidney disease stage : on chronic dialysis Qualified Code(s): E11.22 - Type 2 diabetes mellitus with diabetic chronic kidney disease; N18.6 - End stage renal disease; Z79.4 - custodial (current) use of insulin; Z99.2 - Dependence on renal dialysis (5) ESRD on peritoneal dialysis Code(s): N18.6 - END STAGE RENAL DISEASE; Z99.2 - DEPENDENCE ON RENAL DIALYSIS Status: Chronic (6) HTN (hypertension) Code(s): I10 - ESSENTIAL (PRIMARY) HYPERTENSION Status: Chronic Qualifiers: Hypertension type: essential hypertension Qualified Code(s): I10 - Essential (primary) hypertension (7) TIA (transient ischemic attack) Code(s): G45.9 - TRANSIENT CEREBRAL ISCHEMIC ATTACK, UNSPECIFIED Status: Suspected - Plan * Acute CVA- MRI results noted. She had a tiny infarct in the right occipital lobe * Neurology input appreciated- will continue with Aggrenox and Aspirin * New weakness today- ? TIA vs. New or extended infarct. TPa was contraindicated due to the recent infarct. * HTN with hypertensive Urgency- her blood pressure is better- will continue with her home medications as well as prn hydralazine * ESRD on PD- continue dialysis per Nephrology * DM- blood glucose is stable * Await further recommendations from Neurology * Patient reported to have 2nd degree AV block, and there is concern for possible occult AFIB- will consult cardiology * Continue PT /OT
[2020-01-29] MEDS: Aggrenox 200-25mg CAP PO SCH (10:44)
[2020-01-29] MEDS: busPIRone HCl 5 MG TAB PO SCH ×2 (10:44→21:10)
[2020-01-29] MEDS: Heparin 5,000 UNITS/ML VIAL SC SCH (10:44)
[2020-01-29] MEDS: Sevelamer Carbonate 800 MG TAB PO SCH ×3 (10:45→18:26)
[2020-01-29] MEDS: Cinacalcet HCl 30 MG TAB PO SCH (10:46)
[2020-01-29] MEDS: Calcium Acetate 667 MG CAP PO SCH ×3 (10:46→18:26)
[2020-01-29] MEDS: Calcitriol 0.25 MCG CAP PO SCH (10:46)
[2020-01-29] MEDS: Folic Acid/Vit B Comp W-C PO SCH (10:47)
--- NOTE | 2020-01-29 12:28 | PRG ---
DATE OF SERVICE: 01/29/2020 The patient showed deterioration. Since yesterday, her aphasia has gotten significantly worse. She has a bit of a right facial droop. She has some use of the right upper extremity, though I could not really get her to use it to follow commands in appropriate fashion. She was started on Aggrenox yesterday. Her workup prior to this is otherwise unremarkable for any correctable problem. I would continue the Aggrenox and anticipate sending her to [facility]. Job ID: [id number]
--- NOTE | 2020-01-29 16:06 | PDOC.EVN ---
Event Note - Event Note Event Note: Patient has become weaker, and NIH is now reported at 18. Will check an MRI, and if not able to get MRI will check a CT scan to rule out hemorrhagic conversion.
--- NOTE | 2020-01-29 16:48 | EKG ---
Test Reason : STAT Blood Pressure : / mmHG Vent. Rate : 083 BPM Atrial Rate : 083 BPM P-R Int : 306 ms QRS Dur : 076 ms QT Int : 400 ms P-R-T Axes : 016 -23 046 degrees QTc Int : 470 ms Sinus rhythm with 1st degree A-V block Inferior infarct , age undetermined Anteroseptal infarct (cited on or before 16-OCT-2017) Abnormal ECG When compared with ECG of 28-NOV-2019 05:10, NV interval has increased Inferior infarct is now Present Confirmed by Hayes TORO ([id number]) on 01/29/2020 4:48:07 PM Referred By: CHING Confirmed By:Hayes TORO
--- NOTE | 2020-01-29 16:49 | EKG ---
Test Reason : AFTER CODE GREEN Blood Pressure : / mmHG Vent. Rate : 083 BPM Atrial Rate : 089 BPM P-R Int : 000 ms QRS Dur : 080 ms QT Int : 414 ms P-R-T Axes : 000 000 044 degrees QTc Int : 486 ms Sinus rhythm with 2nd degree A-V block (Mobitz I) Anteroseptal infarct (cited on or before 16-OCT-2017) Abnormal ECG When compared with ECG of 28-JAN-2020 20:34, (Unconfirmed) Sinus rhythm is now with 2nd degree A-V block (Mobitz I) Criteria for Inferior infarct are no longer Present Confirmed by Hayes TORO ([id number]) on 01/29/2020 4:48:33 PM Referred By: CHING Confirmed By:Hayes TORO
--- NOTE | 2020-01-29 16:50 | MRI ---
BRAIN MRI WITHOUT CONTRAST: 01/29/20 HISTORY: Worsening confusion and weakness. COMPARISON: 01/28/20. FINDINGS: The calvarium has a normal T1 marrow signal intensity. Midline brain parenchymal structures are unrem arkable. There is no evidence of hemorrhage on the axial gradient echo sequence. There is interval de velopment of increased T2 and FLAIR hyperintensity involving the left temporal cortex and associated white matter. There is associated restricted diffusion, compatible with a left MCA distribution infar ct. Similar signal intensity is noted in the left insular cortex. There is likely early chronic insul t involving the medial left occipital lobe. Small focus of restricted diffusion is also noted in the right occipital lobe, unchanged from the examination performed yesterday. Remote cavitary lacunar in farct in the right fritz radiata. Mild mucosal thickening of the paranasal sinuses. Adequate mastoid air cell aeration. IMPRESSION: 1. Stable small focal infarct involving the right occipital lobe. 2. Interval development of multifocal infarcts involving the left MCA distribution. Left MCA dis tribution infarct has occurred since the examination performed yesterday. 3. Likely early chronic changes involving the left occipital lobe. POS: PPP
[2020-01-29] MEDS: Sodium Chloride 0.9% 1,000 ML IV SCH (17:09)
--- NOTE | 2020-01-29 17:12 | PDOC.EVN ---
Event Note - Event Note Event Note: MRI results noted. She has developed new infarcts. I tried to call both the patient's son and daughter, but received no answer on either phone line. Will await further recommendations from Neurology.
[2020-01-29] MEDS: HumaLOG 300 UNITS/3 ML VIAL SC PRN (18:22)
--- NOTE | 2020-01-29 18:33 | CON ---
DATE OF CONSULTATION: HISTORY: Carley Sommer is a 54-year-old white female with history of end- stage renal disease and multiple recent strokes. In May 2017, she did see Dr. Keaton Castle. She was found to have 3-vessel coronary artery disease and normal left ventricular function. She underwent CABG x4 with CAO to the LAD, saphenous vein grafts were placed at 3 diffusely diseased that were not redo vessels-diagonal, ramus, and posterolateral branch. She came to the office once for followup with Dr. Castle after bypass. She since has intermittently seen Dr. Cruz at [facility]. At one time, she apparently had a monitor placed for 2 to 3 days and was hospitalized and the monitor was never placed back on. She was admitted in August 2019 with acute cerebrovascular accident involving the left cerebellum. There was question of a mass on the mitral valve and she underwent transesophageal echo by Dr. Howard during that admission. This revealed aortic valve sclerosis, heavily sclerotic and calcified mitral valve leaflets and severe mitral annular calcification, but no obvious cardiac mass. There was mild tricuspid regurgitation. During that admission, aspirin was reduced from 325 to 81 and she had Plavix added. She was again admitted in November 2019 again with another stroke with acute infarction bilaterally on MRI consistent with an embolic process. She had problems with hallucinations and delusions during that admission. She then went to [facility]. She now is admitted with complaints of slurring of her words around 1030 yesterday morning. She also had some right leg weakness with the leg giving way and she fell to the ground. Since being here, she has had some subsequent neurological deterioration and MRI today reveals interval development of multifocal infarcts involving the left middle cerebral artery distribution, which is new from the MRI of the day before. She has been changed to Aggrenox. With the patient's aphasia, she is not able to give a coherent history. She will answer questions with yes and no, but is unable to provide any explanation. PAST MEDICAL HISTORY: Cerebrovascular accident in August 2019, November 2019, and now. Hypertension; hypothyroidism; coronary artery disease; end-stage renal disease, on peritoneal dialysis; and diabetes mellitus. PAST SURGICAL HISTORY: CABG x4, hysterectomy, cervical spine surgery, gastric sleeve surgery, right shoulder surgery, , and cholecystectomy. MEDICATIONS: At home include; 1. Aspirin 81 mg daily. 2. Plavix 75 mg daily. 3. Atorvastatin 40 at bedtime. 4. BuSpar 5 mg b.i.d. 5. Calcitriol 0.25 mcg daily. 6. Sensipar 30 mg daily. 7. Ferric citrate 210 mg t.i.d. 8. Folic acid and vitamin B daily. 9. Humalog. 10. Atarax 50 mg q.8 hours p.r.n. 11. Insulin. 12. Levothyroxine 137 mcg daily. 13. Metoprolol 25 mg daily. 14. Midodrine 5 mg t.i.d. 15. Nifedipine 30 mg at bedtime. 16. Protonix 40 daily p.r.n. 17. Pregabalin 25 mg at bedtime. ALLERGIES: CODEINE, TORADOL, MORPHINE, TRAMADOL, AND MADISON PEPPER. SOCIAL HISTORY: She smoked in the past. She does not drink. REVIEW OF SYSTEMS: Difficult to obtain due to her aphasia. PHYSICAL EXAMINATION: VITAL SIGNS: Blood pressure 144/81 and pulse of 84. HEENT: PERRL. NECK: Supple. CHEST: Clear. CARDIAC: S1 and S2 normal without any S3 or S4. There is a 1/6 systolic murmur in the aortic area. Carotid upstrokes normal without bruits. ABDOMEN: Normal bowel sounds without tenderness or organomegaly. EXTREMITIES: Revealed no clubbing, cyanosis, or edema. NEUROLOGIC: Patient is aphasic, with right facial droop, right arm weakness. SKIN: Warm and dry. LABORATORY: EKG reveals normal sinus rhythm with one EKG showing type I second-degree AV block. There is poor R-wave progression consistent with anterior septal infarction. On the monitor, she does have episodes of first-degree AV block and more episodes of Mobitz type I. Echocardiogram in November revealed ejection fraction of 60% to 65% with moderate concentric left ventricular hypertrophy, moderate mitral annular calcification, mild mitral regurgitation. Hemoglobin 10.9, hematocrit 33.3, white count 16,000, and platelets 350,000. Sodium 134, potassium 5.0, chloride 98, carbon dioxide 19, BUN 57, and creatinine 11.04. Troponin I 0.105. She has chronically elevated troponin I. IMPRESSION: 1. Multiple cerebrovascular accidents. After one in August, Plavix was added. She is now being changed to Aggrenox. 2. First-degree AV block and second-degree AV block type I. 3. There has been no documented atrial fibrillation, which certainly is of concern with multifocal areas of stroke. 4. Hypertension. 5. Hypercholesterolemia. 6. Hypothyroidism. 7. Diabetes. 8. Coronary artery disease, status post coronary artery bypass graft x4. 9. Normal left ventricular function. 10. End stage renal disease. On peritoneal dialysis. PLAN: Patient apparently had worn a monitor in the outpatient setting, but was hospitalized and apparently the monitor was never replaced. This should be attempted again and consideration also could be given to an implantable loop recorder. On her transesophageal echocardiogram in August, she had no intracardiac masses and there was no mention of any patent foramen ovale or ASD. I will follow the patient with you. Job ID: [id number] [facility]
[2020-01-29 19:58] LABS: HBSAg Index 0.25 S/CO (0-0.99); Hep B Surf Ag Non-Reactive S/CO (NonReactive)
[2020-01-29] MEDS: Atorvastatin Calcium 40 MG TAB PO SCH (21:10)
[2020-01-29] MEDS: NIFEdipine XL 30 MG TAB PO SCH (21:11)
[2020-01-29] MEDS: Pregabalin 25 MG CAP PO SCH (21:11)
[2020-01-29] MEDS: Enoxaparin Sodium 80 MG/0.8 ML SYRINGE SC SCH (21:12)
[2020-01-30] MEDS: hydrALAZINE 20 MG/ML VIAL SLOW IVP PRN (04:17)
[2020-01-30] MEDS: Labetalol HCl 100 MG/20 ML VIAL SLOW IVP PRN (05:36)
[2020-01-30] MEDS: Levothyroxine Sodium 112 MCG TAB PO SCH (05:39)
[2020-01-30] MEDS: HumaLOG 300 UNITS/3 ML VIAL SC PRN (05:47)
[2020-01-30] MEDS: Calcium Acetate 667 MG CAP PO SCH ×3 (08:51→18:08)
[2020-01-30] MEDS: Calcitriol 0.25 MCG CAP PO SCH (08:51)
[2020-01-30] MEDS: Folic Acid/Vit B Comp W-C PO SCH (08:51)
[2020-01-30] MEDS: Sevelamer Carbonate 800 MG TAB PO SCH ×3 (08:51→18:08)
[2020-01-30] MEDS: Cinacalcet HCl 30 MG TAB PO SCH (08:52)
[2020-01-30] MEDS: busPIRone HCl 5 MG TAB PO SCH ×2 (08:52→21:13)
--- NOTE | 2020-01-30 10:04 | PRG ---
DATE OF SERVICE: SUBJECTIVE: This 54-year-old female being seen for end-stage kidney disease. The patient denies nausea, vomiting, or chest pain. PHYSICAL EXAMINATION: GENERAL: The patient is awake and alert. VITAL SIGNS: Afebrile, pulse 75, breathing at 16, blood pressure 137/76. HEENT: Head normocephalic and atraumatic. Eyes intact, no ulcers. Nose intact, no ulcers. Ears intact, no ulcers. NECK: Supple. No JVD. CHEST: Symmetrical and clear. CARDIOVASCULAR: Shows S1 and S2, no rub, no murmur. GASTROINTESTINAL: Abdomen is soft, bowel sounds positive. EXTREMITIES: Show no edema or ulcers. SKIN: Shows no rash or petechiae. MUSCULOSKELETAL: Shows no joint swelling or stiffness. GENITOURINARY: Shows no Marx or CVA tenderness. NEUROLOGIC: Motor intact. Cranial nerves intact. LABORATORY DATA: Reviewed. ASSESSMENT AND PLAN: Stage 6 chronic kidney disease, continue peritoneal dialysis. Hypertension, stable. Anemia, stable. Medication based on GFR appropriate. Job ID: [id number]
--- NOTE | 2020-01-30 11:11 | PDOC.HOSPP ---
- Subjective Encounter Date: 01/30/20 Encounter Time: 09:45 Subjective: awake, no sob moves right leg a bit above bed 20 degrees, does not move right UE can speak a few words this am, understands verbal questions - Objective Vital Signs & Weight: Vital Signs (12 hours) Temp Pulse Resp BP BP BP Pulse Ox 01/30/20 07:39 97.3 F L 75 18 137/76 99 01/30/20 06:05 158/84 H 01/30/20 05:36 83 193/89 H 01/30/20 04:17 76 182/75 H 01/30/20 03:09 98 F 84 16 167/94 H 95 01/29/20 23:17 97.8 F 82 16 145/77 H 95 Weight Admit Weight 146 lb Weight 146 lb I&O: 01/29/20 01/30/20 01/31/20 06:59 06:59 06:59 Intake Total 440 126 Balance 440 126 Result Diagrams: 01/29/20 07:47 01/29/20 07:47 Additional Labs: Accuchecks 01/30/20 01/29/20 01/29/20 05:43 19:57 16:45 POC Glucose 223 H 155 H 160 H 01/29/20 10:30 POC Glucose 146 H Hospitalist ROS - Medication Medications: Active Medications Generic Name Dose Route Start Last Admin Trade Name Nicolás PRN Reason Stop Dose Admin Atorvastatin Calcium 40 mg 01/28/20 21:00 01/29/20 21:10 Lipitor PO Not Given HS BELA Buspirone HCl 5 mg 01/28/20 21:00 01/30/20 08:52 Buspar PO 5 mg BID BELA Administration Calcitriol 0.25 mcg 01/29/20 09:00 01/30/20 08:51 Rocaltrol PO 0.25 mcg DAILY BELA Administration Calcium Acetate 667 mg 01/29/20 08:00 01/30/20 08:51 Phoslo PO 667 mg TID-WM BELA Administration Cinacalcet 30 mg 01/29/20 09:00 01/30/20 08:52 Sensipar PO 30 mg DAILY BELA Administration Enoxaparin Sodium 70 mg 01/29/20 21:00 01/29/20 21:12 Lovenox SC 70 mg 2100 BELA Administration Hydralazine HCl 10 mg 01/28/20 13:52 01/30/20 04:17 Apresoline SLOW IVP 10 mg Q4H PRN Administration SBP > 180 and HR < 70 Sodium Chloride 1,000 mls @ 50 mls/hr 01/29/20 16:15 01/29/20 17:09 Normal Saline 0.9% IV 1,000 mls .Q20H BELA Administration Insulin Human Lispro 0 units 01/28/20 13:52 01/30/20 05:47 Humalog SC 4 unit .MODERATE SLIDING SC PRN Administration Moderate Correctional Scale Labetalol HCl 20 mg 01/28/20 17:41 01/30/20 05:36 Normodyne SLOW IVP 4 ml Q4H PRN Administration SBP GREATER THAN 160 Levothyroxine Sodium 112 mcg 01/29/20 06:00 01/30/20 05:39 Synthroid PO Not Given 0600 BELA Metoprolol Succinate 25 mg 01/29/20 09:00 01/30/20 08:52 Toprol Xl PO 25 mg DAILY BELA Administration Nifedipine 30 mg 01/28/20 21:00 01/29/20 21:11 Procardia Xl PO Not Given HS BELA Pregabalin 25 mg 01/28/20 21:00 01/29/20 21:11 Lyrica PO Not Given HS BELA Sevelamer Carbonate 2,400 mg 01/29/20 08:00 01/30/20 08:51 Renvela PO 2,400 mg TID-WM BELA Administration Vitamin B Complex/Vit C/Folic Acid 1 tab 01/29/20 09:00 01/30/20 08:51 Nephro-Jose Angel Tablet PO 1 tab DAILY BELA Administration - Exam General Appearance: awake alert Eye: PERRL, anicteric sclera ENT: no oropharyngeal lesions, dry oral mucosa Neck: supple, no JVD Heart: RRR, no murmur Respiratory: no wheezes, no rales Gastrointestinal: soft, non-tender, non-distended, normal bowel sounds Extremities: no cyanosis, no edema Neurological: hemiplegia, speech deficit Psychiatric: normal affect, A&O x 3 Hosp A/P (1) Acute CVA (cerebrovascular accident) Code(s): I63.9 - CEREBRAL INFARCTION, UNSPECIFIED Status: Acute (2) History of CVA (cerebrovascular accident) Code(s): Z86.73 - PRSNL HX OF TIA (TIA), AND CEREB INFRC W/O RESID DEFICITS Status: Chronic (3) Anxiety and depression Code(s): F41.9 - ANXIETY DISORDER, UNSPECIFIED; F32.9 - MAJOR DEPRESSIVE DISORDER, SINGLE EPISODE, UNSPECIFIED Status: Chronic (4) DM2 (diabetes mellitus, type 2) Status: Chronic Qualifiers: Diabetes mellitus snf insulin use: with manager long term care use Diabetes mellitus complication status: with kidney complications Diabetes mellitus complication detail: with chronic kidney disease Chronic kidney disease stage : on chronic dialysis Qualified Code(s): E11.22 - Type 2 diabetes mellitus with diabetic chronic kidney disease; N18.6 - End stage renal disease; Z79.4 - [facility] long term care (current) use of insulin; Z99.2 - Dependence on renal dialysis (5) ESRD on peritoneal dialysis Code(s): N18.6 - END STAGE RENAL DISEASE; Z99.2 - DEPENDENCE ON RENAL DIALYSIS Status: Chronic (6) HTN (hypertension) Code(s): I10 - ESSENTIAL (PRIMARY) HYPERTENSION Status: Chronic Qualifiers: Hypertension type: essential hypertension Qualified Code(s): I10 - Essential (primary) hypertension (7) Hypothyroidism Code(s): E03.9 - HYPOTHYROIDISM, UNSPECIFIED Status: Chronic Qualifiers: Hypothyroidism type: unspecified Qualified Code(s): E03.9 - Hypothyroidism , unspecified - Plan has left MCA distribution multifocal infarct, in sinus rhythm on monitor likely will have Linc monitor placed is on lovenox sc daily full dose, lipitor, toprol xl, procardia xl, synthroid, buspar, phoslo, sensipar and calcitriol hemostable neurologically slight movement in right LE and speech is improving diet per speech therapy adv elevated wbc ?margination, will get cxr, continue iv fluids PT/OT, rehab eval
[2020-01-30 11:19] LABS: INR-International Normal Ratio 0.9; PTT 33.4 SEC (22.9-36.1); Prothrombin Time 12.4 SEC (12.0-14.7)
[2020-01-30 11:20] LABS: D-Dimer Test 0.67 *mcg/mL (0.27-0.43)
[2020-01-30 11:31] LABS: Anion Gap 24 mmol/L (10-20); BUN (Urea Nitrogen) 50 mg/dL (9.8-20.1); Calc. Creatinine Clearance 7 mL/min (70-130); Calcium 7.9 mg/dL (7.8-10.44); Carbon Dioxide 19 mmol/L (22-29); Chloride 97 mmol/L (98-107); Estimated GFR-MDRD 4; Glucose 137 mg/dL (70-105); Potassium 4.2 mmol/L (3.5-5.1); Sodium 136 mmol/L (136-145)
[2020-01-30 11:35] LABS: #Basophils 0.1 thou/uL (0.0-0.2); #Eosinphils 0.6 thou/uL (0.0-0.7); #Lymphocytes 3.1 thou/uL (1.20-3.40); #Monocytes 0.9 thou/uL (0.11-0.59); #Neutrophils 9.6 thou/uL (1.40-6.50); %Basophils 0.9 % (0.0-1.0); %Eosinophils 3.9 % (0.0-10.0); %Lymphocytes 21.4 % (21.0-51.0); %Monocytes 6.6 % (0.0-10.0); %Neutrophils 67.3 % (42.0-75.0); Hemoglobin 10.6 g/dL (12.0-16.0); Mean Corpuscular HGB CONC 32.7 g/dL (32.0-36.0); Mean Corpuscular Volume 85.4 fL (78.0-98.0); Mean Platelet Volume 8.3 fL (7.4-10.4); Platelet Count 356 thou/uL (130-400); White Blood Cell (WBC) Count 14.3 thou/uL (4.8-10.8)
[2020-01-30] MEDS: Sodium Chloride 0.9% 1,000 ML IV SCH (12:30)
--- NOTE | 2020-01-30 12:49 | RAD ---
EXAM: CHEST ONE VIEW HISTORY: CVA. Elevated white blood cell count. COMPARISON: 08/31/2019 FINDINGS: Median sternotomy wires are again seen. Cardiac silhouette and pulmonary vasculature are within dipti l limits. No consolidation or pleural fluid is seen. Vascular calcifications are again seen in the thoracic aorta. Post surgical changes lower cervical spine are again noted. Surgical clips again over lie the right upper quadrant. IMPRESSION: No acute cardiopulmonary process.
[2020-01-30] MEDS: Atorvastatin Calcium 40 MG TAB PO SCH (21:13)
[2020-01-30] MEDS: NIFEdipine XL 30 MG TAB PO SCH (21:13)
[2020-01-30] MEDS: Pregabalin 25 MG CAP PO SCH (21:16)
[2020-01-30] MEDS: Enoxaparin Sodium 80 MG/0.8 ML SYRINGE SC SCH (21:18)
[2020-01-31] MEDS: Labetalol HCl 100 MG/20 ML VIAL SLOW IVP PRN (00:27)
[2020-01-31] MEDS: Levothyroxine Sodium 112 MCG TAB PO SCH (05:59)
[2020-01-31] MEDS: HumaLOG 300 UNITS/3 ML VIAL SC PRN (05:59)
[2020-01-31] MEDS ORDERED: Aspirin 300 MG Suppository PR SCH (09:00)
[2020-01-31] MEDS: Sodium Chloride 0.9% 1,000 ML IV SCH (10:11)
[2020-01-31] MEDS: Calcitriol 0.25 MCG CAP PO SCH (10:13)
[2020-01-31] MEDS: Folic Acid/Vit B Comp W-C PO SCH (10:14)
[2020-01-31] MEDS: Cinacalcet HCl 30 MG TAB PO SCH (10:14)
--- NOTE | 2020-01-31 10:14 | PDOC.HOSPP ---
- Subjective Encounter Date: 01/31/20 Encounter Time: 10:00 Subjective: no new complaints, is awake, follows verbal stimuli moves a bit or right leg no movement in right upper extremity speaks a few words - Objective Vital Signs & Weight: Vital Signs (12 hours) Temp Pulse Resp BP BP Pulse Ox 01/31/20 07:56 98 F 73 16 158/73 H 98 01/31/20 05:58 74 155/78 H 01/31/20 04:00 97.9 F 75 16 161/83 H 98 01/31/20 02:20 72 136/84 01/31/20 00:27 71 162/78 H 01/31/20 00:16 97.9 F 71 16 162/78 H 99 Weight Admit Weight 146 lb Weight 146 lb I&O: 01/30/20 01/31/20 02/01/20 06:59 06:59 06:59 Intake Total 126 1536 Balance 126 1536 Result Diagrams: 01/30/20 10:28 01/30/20 10:27 Additional Labs: Accuchecks 01/31/20 01/30/20 01/30/20 05:52 19:27 16:28 POC Glucose 201 H 217 H 130 H 01/30/20 11:06 POC Glucose 139 H Hospitalist ROS - Medication Medications: Active Medications Generic Name Dose Route Start Last Admin Trade Name Nicolás PRN Reason Stop Dose Admin Atorvastatin Calcium 40 mg 01/28/20 21:00 01/30/20 21:13 Lipitor PO 40 mg HS BELA Administration Buspirone HCl 5 mg 01/28/20 21:00 01/30/20 21:13 Buspar PO 5 mg BID BELA Administration Calcitriol 0.25 mcg 01/29/20 09:00 01/30/20 08:51 Rocaltrol PO 0.25 mcg DAILY BELA Administration Calcium Acetate 667 mg 01/29/20 08:00 01/30/20 18:08 Phoslo PO Not Given TID-WM BELA Cinacalcet 30 mg 01/29/20 09:00 01/30/20 08:52 Sensipar PO 30 mg DAILY BELA Administration Enoxaparin Sodium 70 mg 01/29/20 21:00 01/30/20 21:18 Lovenox SC 70 mg 2100 BELA Administration Hydralazine HCl 10 mg 01/28/20 13:52 01/30/20 04:17 Apresoline SLOW IVP 10 mg Q4H PRN Administration SBP > 180 and HR < 70 Hydroxyzine HCl 50 mg 01/28/20 17:42 01/30/20 21:29 Atarax PO 50 mg Q8H PRN Administration Itching Sodium Chloride 1,000 mls @ 50 mls/hr 01/29/20 16:15 01/30/20 12:30 Normal Saline 0.9% IV 1,000 mls .Q20H BELA Administration Insulin Human Lispro 0 units 01/28/20 13:52 01/31/20 05:59 Humalog SC 4 unit .MODERATE SLIDING SC PRN Administration Moderate Correctional Scale Insulin Human Lispro 0 units 01/28/20 13:52 01/30/20 21:30 Humalog SC 2 unit .BEDTIME SLIDING SC PRN Administration Bedtime Correctional Scale Labetalol HCl 20 mg 01/28/20 17:41 01/31/20 00:27 Normodyne SLOW IVP 4 ml Q4H PRN Administration SBP GREATER THAN 160 Levothyroxine Sodium 112 mcg 01/29/20 06:00 01/31/20 05:59 Synthroid PO 112 mcg 0600 BELA Administration Metoprolol Succinate 25 mg 01/29/20 09:00 01/30/20 08:52 Toprol Xl PO 25 mg DAILY BELA Administration Nifedipine 30 mg 01/28/20 21:00 01/30/20 21:13 Procardia Xl PO 30 mg HS BELA Administration Pregabalin 25 mg 01/28/20 21:00 01/30/20 21:16 Lyrica PO 25 mg HS BELA Administration Sevelamer Carbonate 2,400 mg 01/29/20 08:00 01/30/20 18:08 Renvela PO Not Given TID-WM BELA Vitamin B Complex/Vit C/Folic Acid 1 tab 01/29/20 09:00 01/30/20 08:51 Nephro-Jose Angel Tablet PO 1 tab DAILY BELA Administration - Exam General Appearance: awake alert Eye: PERRL, anicteric sclera ENT: no oropharyngeal lesions, moist mucosa Neck: supple, no JVD Heart: RRR, no murmur Respiratory: no wheezes, no rales Gastrointestinal: soft, non-tender, non-distended, normal bowel sounds Extremities: no cyanosis, no edema Neurological: hemiplegia, speech deficit Psychiatric: normal affect, A&O x 3 Hosp A/P (1) Acute CVA (cerebrovascular accident) Code(s): I63.9 - CEREBRAL INFARCTION, UNSPECIFIED Status: Acute (2) History of CVA (cerebrovascular accident) Code(s): Z86.73 - PRSNL HX OF TIA (TIA), AND CEREB INFRC W/O RESID DEFICITS Status: Chronic (3) Anxiety and depression Code(s): F41.9 - ANXIETY DISORDER, UNSPECIFIED; F32.9 - MAJOR DEPRESSIVE DISORDER, SINGLE EPISODE, UNSPECIFIED Status: Chronic (4) DM2 (diabetes mellitus, type 2) Status: Chronic Qualifiers: Diabetes mellitus residential insulin use: with residential use Diabetes mellitus complication status: with kidney complications Diabetes mellitus complication detail: with chronic kidney disease Chronic kidney disease stage : on chronic dialysis Qualified Code(s): E11.22 - Type 2 diabetes mellitus with diabetic chronic kidney disease; N18.6 - End stage renal disease; Z79.4 - [facility] (current) use of insulin; Z99.2 - Dependence on renal dialysis (5) ESRD on peritoneal dialysis Code(s): N18.6 - END STAGE RENAL DISEASE; Z99.2 - DEPENDENCE ON RENAL DIALYSIS Status: Chronic (6) HTN (hypertension) Code(s): I10 - ESSENTIAL (PRIMARY) HYPERTENSION Status: Chronic Qualifiers: Hypertension type: essential hypertension Qualified Code(s): I10 - Essential (primary) hypertension (7) Hypothyroidism Code(s): E03.9 - HYPOTHYROIDISM, UNSPECIFIED Status: Chronic Qualifiers: Hypothyroidism type: unspecified Qualified Code(s): E03.9 - Hypothyroidism , unspecified - Plan has left MCA distribution multifocal infarct, in sinus rhythm on monitor likely will have Linc/event monitor prior to discharge. is on lovenox sc daily full dose, lipitor, toprol xl, procardia xl, synthroid, buspar, phoslo, sensipar and calcitriol suggest xarelto or eliquis in view of multifocal infarct and rec cva with no known causes so far, await neurology opinion regarding this. hemostable neurologically slight movement in right LE and speech is improving diet per speech therapy adv, will be on pureed diet based on MBS. elevated wbc ?margination, cxr is -ve for infiltrate, continue iv fluids PT/OT, rehab eval
[2020-01-31] MEDS: Sevelamer Carbonate 800 MG TAB PO SCH ×3 (10:15→16:52)
[2020-01-31] MEDS: Calcium Acetate 667 MG CAP PO SCH ×3 (10:15→16:52)
[2020-01-31] MEDS: busPIRone HCl 5 MG TAB PO SCH ×2 (10:24→20:36)
--- NOTE | 2020-01-31 10:39 | RAD ---
EXAM: XR Ba Swallow W/Speech Therap PROVIDED CLINICAL HISTORY: Dysphagia following cerebral infarction. COMPARISON: None FINDINGS: This examination was performed in conjunction with speech pathology. Varying consistencies of barium were administered during the exam. Patient demonstrates mild difficulty in formation of the bolus into the posterior pharynx. There is premature spill of contrast into the vallecula prior to initiati on of the swallowing mechanism. Patient demonstrated an episode of minimal penetration with residue in the piriform sinus. An episode of aspiration with appropriate cough reflex was elicited with swall owing of thin liquid barium. Postoperative changes related to anterior cervical fusion of the C4-5 and C5-6 levels is seen with anterior plate and screws and intradiscal prostheses identified. IMPRESSION: Episode of mild aspiration with thin liquid barium with appropriate cough reflex elicited.
--- NOTE | 2020-01-31 14:09 | PRG ---
DATE OF SERVICE: 01/31/2020 SUBJECTIVE: This is a 54-year-old female, being seen for end-stage kidney disease. The patient denies nausea, vomiting, or chest pain. OBJECTIVE: General: The patient is awake and alert. Vital Signs: Afebrile, pulse 75, breathing 16, and blood pressure 155/78. HEENT: Head normocephalic and atraumatic. Eyes intact, no ulcers. Nose intact, no ulcers. Ears intact, no ulcers. Neck: Supple. No JVD. Chest: Symmetrical and clear. Cardiovascular: Shows S1 and S2, no rub, no murmur. Gastrointestinal: Abdomen is soft, bowel sounds positive. Extremities: Show no edema or ulcers. Skin: Shows no rash or petechiae. Musculoskeletal: Shows no joint swelling or stiffness. Genitourinary: Shows no Marx or CVA tenderness. Neurologic: Motor intact. Cranial nerves intact. LABORATORY DATA: Reviewed. ASSESSMENT AND PLAN: 1. Stage 6 chronic kidney disease. Continue PD. 2. Hypertension, stable. 3. Anemia, stable. 4. Medication based on GFR appropriate. Job ID: [id number]
[2020-01-31] MEDS: Pregabalin 25 MG CAP PO SCH (20:34)
[2020-01-31] MEDS: NIFEdipine XL 30 MG TAB PO SCH (20:35)
[2020-01-31] MEDS: Atorvastatin Calcium 40 MG TAB PO SCH (20:35)
[2020-01-31] MEDS: Enoxaparin Sodium 80 MG/0.8 ML SYRINGE SC SCH (20:35)
[2020-02-01] MEDS: Labetalol HCl 100 MG/20 ML VIAL SLOW IVP PRN ×2 (00:14→15:56)
[2020-02-01] MEDS: Sodium Chloride 0.9% 1,000 ML IV SCH (03:30)
[2020-02-01] MEDS: hydrALAZINE 20 MG/ML VIAL SLOW IVP PRN (03:36)
[2020-02-01 05:16] LABS: Anion Gap 18 mmol/L (10-20); BUN (Urea Nitrogen) 33 mg/dL (9.8-20.1); Calc. Creatinine Clearance 9 mL/min (70-130); Calcium 7.8 mg/dL (7.8-10.44); Carbon Dioxide 23 mmol/L (22-29); Chloride 95 mmol/L (98-107); Estimated GFR-MDRD 6; Glucose 179 mg/dL (70-105); Potassium 3.7 mmol/L (3.5-5.1); Sodium 132 mmol/L (136-145)
[2020-02-01] MEDS: Levothyroxine Sodium 112 MCG TAB PO SCH (05:51)
[2020-02-01] MEDS: HumaLOG 300 UNITS/3 ML VIAL SC PRN (05:51)
[2020-02-01] MEDS: Sevelamer Carbonate 800 MG TAB PO SCH ×3 (08:51→17:32)
[2020-02-01] MEDS: Calcium Acetate 667 MG CAP PO SCH ×3 (08:54→17:31)
[2020-02-01] MEDS: Calcitriol 0.25 MCG CAP PO SCH (08:55)
[2020-02-01] MEDS: Folic Acid/Vit B Comp W-C PO SCH (08:57)
[2020-02-01] MEDS: Cinacalcet HCl 30 MG TAB PO SCH (08:57)
[2020-02-01] MEDS ORDERED: Aspirin 325 MG TAB PO SCH (09:00)
[2020-02-01] MEDS: busPIRone HCl 5 MG TAB PO SCH ×2 (09:00→21:12)
--- NOTE | 2020-02-01 10:52 | PDOC.HOSPP ---
- Subjective Encounter Date: 02/01/20 Encounter Time: 10:00 Subjective: awake, eating around 25-30% of pureed diet speaks a few words, does not move her right extremities - Objective Vital Signs & Weight: Vital Signs (12 hours) Temp Pulse Resp BP BP BP BP 02/01/20 09:50 153/78 H 02/01/20 08:50 02/01/20 07:32 97.6 F 85 16 168/81 H 02/01/20 05:25 78 142/82 H 02/01/20 03:36 72 199/90 H 02/01/20 03:25 98.3 F 74 16 196/97 H 02/01/20 01:00 71 H 158/88 H 02/01/20 00:14 68 185/81 H 01/31/20 23:31 97.7 F 71 16 192/94 H Pulse Ox 02/01/20 09:50 02/01/20 08:50 97 02/01/20 07:32 97 02/01/20 05:25 02/01/20 03:36 02/01/20 03:25 97 02/01/20 01:00 02/01/20 00:14 01/31/20 23:31 100 Weight Admit Weight 146 lb Weight 146 lb I&O: 01/31/20 02/01/20 02/02/20 06:59 06:59 06:59 Intake Total 1536 1657 Balance 1536 1657 Result Diagrams: 01/30/20 10:28 02/01/20 04:26 Additional Labs: Accuchecks 02/01/20 01/31/20 01/31/20 05:46 19:25 16:14 POC Glucose 159 H 187 H 143 H 01/31/20 10:44 POC Glucose 111 H Hospitalist ROS - Medication Medications: Active Medications Generic Name Dose Route Start Last Admin Trade Name Freq PRN Reason Stop Dose Admin Atorvastatin Calcium 40 mg 01/28/20 21:00 01/31/20 20:35 Lipitor PO 40 mg HS BELA Administration Buspirone HCl 5 mg 01/28/20 21:00 02/01/20 09:00 Buspar PO 5 mg BID BELA Administration Calcitriol 0.25 mcg 01/29/20 09:00 02/01/20 08:55 Rocaltrol PO 0.25 mcg DAILY BELA Administration Calcium Acetate 667 mg 01/29/20 08:00 02/01/20 08:54 Phoslo PO 667 mg TID-WM BELA Administration Cinacalcet 30 mg 01/29/20 09:00 02/01/20 08:57 Sensipar PO 30 mg DAILY BELA Administration Hydralazine HCl 10 mg 01/28/20 13:52 02/01/20 03:36 Apresoline SLOW IVP 10 mg Q4H PRN Administration SBP > 180 and HR < 70 Hydroxyzine HCl 50 mg 01/28/20 17:42 01/30/20 21:29 Atarax PO 50 mg Q8H PRN Administration Itching Sodium Chloride 1,000 mls @ 50 mls/hr 01/29/20 16:15 02/01/20 03:30 Normal Saline 0.9% IV 1,000 mls .Q20H BELA Administration Insulin Human Lispro 0 units 01/28/20 13:52 02/01/20 05:51 Humalog SC 2 unit .MODERATE SLIDING SC PRN Administration Moderate Correctional Scale Insulin Human Lispro 0 units 01/28/20 13:52 01/30/20 21:30 Humalog SC 2 unit .BEDTIME SLIDING SC PRN Administration Bedtime Correctional Scale Labetalol HCl 20 mg 01/28/20 17:41 02/01/20 00:14 Normodyne SLOW IVP 4 ml Q4H PRN Administration SBP GREATER THAN 160 Levothyroxine Sodium 112 mcg 01/29/20 06:00 02/01/20 05:51 Synthroid PO 112 mcg 0600 BELA Administration Metoprolol Succinate 25 mg 01/29/20 09:00 02/01/20 08:54 Toprol Xl PO 25 mg DAILY BELA Administration Nifedipine 30 mg 01/28/20 21:00 01/31/20 20:35 Procardia Xl PO 30 mg HS BELA Administration Pregabalin 25 mg 01/28/20 21:00 01/31/20 20:34 Lyrica PO 25 mg HS BLEA Administration Sevelamer Carbonate 2,400 mg 01/29/20 08:00 02/01/20 08:51 Renvela PO 2,400 mg TID-WM BELA Administration Sodium Chloride 10 ml 02/01/20 09:00 02/01/20 08:58 Flush - Normal Saline IVF 10 ml Q12HR BELA Administration Vitamin B Complex/Vit C/Folic Acid 1 tab 01/29/20 09:00 02/01/20 08:57 Nephro-Jose Angel Tablet PO 1 tab DAILY BELA Administration - Exam General Appearance: awake alert Eye: PERRL, anicteric sclera ENT: no oropharyngeal lesions, moist mucosa Neck: supple, no JVD Heart: RRR, no murmur Respiratory: no wheezes, no rales Gastrointestinal: soft, non-tender, non-distended, normal bowel sounds Extremities: no cyanosis, no edema Neurological: hemiplegia, speech deficit Hosp A/P (1) Acute CVA (cerebrovascular accident) Code(s): I63.9 - CEREBRAL INFARCTION, UNSPECIFIED Status: Acute (2) History of CVA (cerebrovascular accident) Code(s): Z86.73 - PRSNL HX OF TIA (TIA), AND CEREB INFRC W/O RESID DEFICITS Status: Chronic (3) Anxiety and depression Code(s): F41.9 - ANXIETY DISORDER, UNSPECIFIED; F32.9 - MAJOR DEPRESSIVE DISORDER, SINGLE EPISODE, UNSPECIFIED Status: Chronic (4) DM2 (diabetes mellitus, type 2) Status: Chronic Qualifiers: Diabetes mellitus group home insulin use: with termite exterminator use Diabetes mellitus complication status: with kidney complications Diabetes mellitus complication detail: with chronic kidney disease Chronic kidney disease stage : on chronic dialysis Qualified Code(s): E11.22 - Type 2 diabetes mellitus with diabetic chronic kidney disease; N18.6 - End stage renal disease; Z79.4 - [employer] (current) use of insulin; Z99.2 - Dependence on renal dialysis (5) ESRD on peritoneal dialysis Code(s): N18.6 - END STAGE RENAL DISEASE; Z99.2 - DEPENDENCE ON RENAL DIALYSIS Status: Chronic (6) HTN (hypertension) Code(s): I10 - ESSENTIAL (PRIMARY) HYPERTENSION Status: Chronic Qualifiers: Hypertension type: essential hypertension Qualified Code(s): I10 - Essential (primary) hypertension (7) Hypothyroidism Code(s): E03.9 - HYPOTHYROIDISM, UNSPECIFIED Status: Chronic Qualifiers: Hypothyroidism type: unspecified Qualified Code(s): E03.9 - Hypothyroidism , unspecified - Plan has left MCA distribution multifocal infarct, in sinus rhythm on monitor likely will have event monitor prior to discharge. d/w will switch to eliquis bid from lovenox daily, lipitor, toprol xl, procardia xl, synthroid, buspar, phoslo, sensipar and calcitriol hemostable, speech is improving diet per speech therapy adv, will be on pureed diet based on MBS. PT/OT, rehab eval may dc to rehab if approved and event monitor is placed on her
--- NOTE | 2020-02-01 12:12 | PRG ---
DATE OF SERVICE: 02/01/2020 SUBJECTIVE: The patient is seen and examined at bedside. She is recovering from a stroke. She is having slurred speech and right-sided weakness. She was working with a therapist today. OBJECTIVE: GENERAL: This is a thin built female, in no apparent distress, but VITAL SIGNS: Temperature 97.5, pulse 70, respiratory rate 14, blood pressure 153/78. HEENT: Atraumatic and normocephalic. NECK: Supple. CV: S1 and S2, heard. RESPIRATORY: Clear. GI: Abdomen is soft. MUSCULOSKELETAL: No tenderness. No edema. DERMATOLOGIC: No skin rash. NEUROLOGIC: Residual paresis present and slurred speech. LABORATORY DATA: Potassium 3.7, BUN is 33, creatinine is 7.1. ASSESSMENT AND PLAN: 1. End-stage renal disease, on peritoneal dialysis. Continue peritoneal dialysis. 2. Hyponatremia, limit fluid intake. 3. Mild hypokalemia. 4. History of hypertension, stable. 5. History of anemia. 6. Edema, controlled. We will continue on peritoneal dialysis as tolerated. We will follow. Job ID: [id number]
[2020-02-01] MEDS: NIFEdipine XL 30 MG TAB PO SCH (21:08)
[2020-02-01] MEDS: Atorvastatin Calcium 40 MG TAB PO SCH (21:08)
[2020-02-01] MEDS: Apixaban 5 MG TAB PO SCH (21:08)
[2020-02-01] MEDS: Pregabalin 25 MG CAP PO SCH (21:12)
[2020-02-02] MEDS: Labetalol HCl 100 MG/20 ML VIAL SLOW IVP PRN ×3 (00:04→18:06)
[2020-02-02] MEDS: Levothyroxine Sodium 112 MCG TAB PO SCH (05:37)
[2020-02-02] MEDS: HumaLOG 300 UNITS/3 ML VIAL SC PRN (06:52)
[2020-02-02] MEDS ORDERED: Aspirin Chewable 81 MG TAB PO SCH (09:00)
[2020-02-02] MEDS: busPIRone HCl 5 MG TAB PO SCH ×2 (09:58→20:41)
[2020-02-02] MEDS: Sevelamer Carbonate 800 MG TAB PO SCH ×3 (09:58→18:00)
[2020-02-02] MEDS: Apixaban 5 MG TAB PO SCH ×2 (09:59→20:41)
[2020-02-02] MEDS: Calcitriol 0.25 MCG CAP PO SCH (09:59)
[2020-02-02] MEDS: Calcium Acetate 667 MG CAP PO SCH ×3 (09:59→18:01)
[2020-02-02] MEDS: Cinacalcet HCl 30 MG TAB PO SCH (09:59)
[2020-02-02] MEDS: Folic Acid/Vit B Comp W-C PO SCH (09:59)
--- NOTE | 2020-02-02 11:40 | PDOC.HOSPP ---
- Subjective Encounter Date: 02/02/20 Encounter Time: 10:45 Subjective: awake, not in distress does not move her right extremities, speaks a few words eating better per patient (doesn't like pureed diet, I have encouraged her to eat more) - Objective Vital Signs & Weight: Vital Signs (12 hours) Temp Pulse Resp BP BP BP Pulse Ox 02/02/20 07:34 98.4 F 71 16 175/84 H 98 02/02/20 05:37 76 02/02/20 04:00 97.9 F 76 16 174/78 H 97 02/02/20 01:04 76 114/72 02/02/20 00:04 73 196/89 H 02/01/20 23:58 97.9 F 73 14 196/89 H 97 Weight Admit Weight 146 lb Weight 146 lb I&O: 02/01/20 02/02/20 02/03/20 06:59 06:59 06:59 Intake Total 1657 725 Balance 1657 725 Result Diagrams: 01/30/20 10:28 02/01/20 04:26 Additional Labs: Accuchecks 02/02/20 02/01/20 02/01/20 06:30 19:17 16:42 POC Glucose 178 H 148 H 126 H Hospitalist ROS - Medication Medications: Active Medications Generic Name Dose Route Start Last Admin Trade Name Nicolás PRN Reason Stop Dose Admin Apixaban 5 mg 02/01/20 21:00 02/02/20 09:59 Eliquis PO 5 mg BID BELA Administration Aspirin 81 mg 02/02/20 09:00 02/02/20 09:59 Aspirin Chewable PO 81 mg DAILY BELA Administration Atorvastatin Calcium 40 mg 01/28/20 21:00 02/01/20 21:08 Lipitor PO 40 mg HS BELA Administration Buspirone HCl 5 mg 01/28/20 21:00 02/02/20 09:58 Buspar PO 5 mg BID BELA Administration Calcitriol 0.25 mcg 01/29/20 09:00 02/02/20 09:59 Rocaltrol PO 0.25 mcg DAILY BELA Administration Calcium Acetate 667 mg 01/29/20 08:00 02/02/20 09:59 Phoslo PO 667 mg TID-WM BELA Administration Cinacalcet 30 mg 01/29/20 09:00 02/02/20 09:59 Sensipar PO 30 mg DAILY BELA Administration Hydralazine HCl 10 mg 01/28/20 13:52 02/01/20 03:36 Apresoline SLOW IVP 10 mg Q4H PRN Administration SBP > 180 and HR < 70 Hydroxyzine HCl 50 mg 01/28/20 17:42 01/30/20 21:29 Atarax PO 50 mg Q8H PRN Administration Itching Sodium Chloride 1,000 mls @ 50 mls/hr 01/29/20 16:15 02/01/20 03:30 Normal Saline 0.9% IV 1,000 mls .Q20H BELA Administration Insulin Human Lispro 0 units 01/28/20 13:52 02/02/20 06:52 Humalog SC 2 unit .MODERATE SLIDING SC PRN Administration Moderate Correctional Scale Insulin Human Lispro 0 units 01/28/20 13:52 01/30/20 21:30 Humalog SC 2 unit .BEDTIME SLIDING SC PRN Administration Bedtime Correctional Scale Labetalol HCl 20 mg 01/28/20 17:41 02/02/20 05:37 Normodyne SLOW IVP 4 ml Q4H PRN Administration SBP GREATER THAN 160 Levothyroxine Sodium 112 mcg 01/29/20 06:00 02/02/20 05:37 Synthroid PO 112 mcg 0600 BELA Administration Metoprolol Succinate 25 mg 01/29/20 09:00 02/02/20 09:58 Toprol Xl PO 25 mg DAILY BELA Administration Nifedipine 30 mg 01/28/20 21:00 02/01/20 21:08 Procardia Xl PO 30 mg HS BELA Administration Pregabalin 25 mg 01/28/20 21:00 02/01/20 21:12 Lyrica PO 25 mg HS BELA Administration Sevelamer Carbonate 2,400 mg 01/29/20 08:00 02/02/20 09:58 Renvela PO 2,400 mg TID-WM BELA Administration Sodium Chloride 10 ml 02/01/20 09:00 02/02/20 09:59 Flush - Normal Saline IVF 10 ml Q12HR BELA Administration Vitamin B Complex/Vit C/Folic Acid 1 tab 01/29/20 09:00 02/02/20 09:59 Nephro-Jose Angel Tablet PO 1 tab DAILY BELA Administration - Exam General Appearance: awake alert Eye: PERRL, anicteric sclera ENT: no oropharyngeal lesions, moist mucosa Neck: supple, no JVD Heart: RRR, no murmur Respiratory: no wheezes, no rales Gastrointestinal: soft, non-tender, non-distended, normal bowel sounds Extremities: no cyanosis, no edema Neurological: hemiplegia, speech deficit Psychiatric: A&O x 3 Hosp A/P (1) Acute CVA (cerebrovascular accident) Code(s): I63.9 - CEREBRAL INFARCTION, UNSPECIFIED Status: Acute (2) History of CVA (cerebrovascular accident) Code(s): Z86.73 - PRSNL HX OF TIA (TIA), AND CEREB INFRC W/O RESID DEFICITS Status: Chronic (3) Anxiety and depression Code(s): F41.9 - ANXIETY DISORDER, UNSPECIFIED; F32.9 - MAJOR DEPRESSIVE DISORDER, SINGLE EPISODE, UNSPECIFIED Status: Chronic (4) DM2 (diabetes mellitus, type 2) Status: Chronic Qualifiers: Diabetes mellitus vermin exterminator insulin use: with vermin exterminator use Diabetes mellitus complication status: with kidney complications Diabetes mellitus complication detail: with chronic kidney disease Chronic kidney disease stage : on chronic dialysis Qualified Code(s): E11.22 - Type 2 diabetes mellitus with diabetic chronic kidney disease; N18.6 - End stage renal disease; Z79.4 - superintendent terminal (current) use of insulin; Z99.2 - Dependence on renal dialysis (5) ESRD on peritoneal dialysis Code(s): N18.6 - END STAGE RENAL DISEASE; Z99.2 - DEPENDENCE ON RENAL DIALYSIS Status: Chronic (6) HTN (hypertension) Code(s): I10 - ESSENTIAL (PRIMARY) HYPERTENSION Status: Chronic Qualifiers: Hypertension type: essential hypertension Qualified Code(s): I10 - Essential (primary) hypertension (7) Hypothyroidism Code(s): E03.9 - HYPOTHYROIDISM, UNSPECIFIED Status: Chronic Qualifiers: Hypothyroidism type: unspecified Qualified Code(s): E03.9 - Hypothyroidism , unspecified - Plan has left MCA distribution multifocal infarct, in sinus rhythm on monitor likely will have event monitor prior to discharge. on eliquis, lipitor, toprol xl, procardia xl, synthroid, buspar, phoslo, sensipar and calcitriol hemostable, speech is improving diet per speech therapy adv, will be on pureed diet based on MBS. PT/OT, rehab eval may dc to rehab if approved and event monitor is placed on her
--- NOTE | 2020-02-02 12:45 | PRG ---
DATE OF SERVICE: 02/02/2020 SUBJECTIVE: Patient was seen and examined at bedside and overnight events noted. Patient denies any shortness of breath or chest pain or palpitation. No history of nausea or vomiting or diarrhea or fever or chills or cramps. OBJECTIVE: GENERAL: This is a well-built female, in no apparent distress. VITAL SIGNS: Temperature 97. Heart rate 60. Respiratory rate . Blood pressure 117/79. HEENT: Atraumatic, normocephalic. Oral mucosa is moist NECK: Supple. CARDIOVASCULAR: S1, S2 heard. Rate and rhythm regular. RESPIRATORY: Clear to auscultation. GASTROINTESTINAL: Abdomen is soft. MUSCULOSKELETAL: No tenderness. No edema. DERMATOLOGIC: No skin rash. NEUROLOGIC: Alert and awake and oriented X3. No focal neurologic deficits. Moving all the extremities. PSYCHIATRIC: Mood and affect normal. LABORATORY DATA: ASSESSMENT AND PLAN: 1. End-stage renal disease. Continue on peritoneal dialysis. 2. Hyponatremia. 3. Mild hypokalemia. 4. History of hypertension. 5. Anemia. 6. Edema, controlled. 7. Continue peritoneal dialysis as tolerated. Continue supportive care. Job ID: [id number]
[2020-02-02 12:55] LABS: Protein C Activity 110 % (78-152)
[2020-02-02 12:58] LABS: Factor VIII Test 334.8 % ACTIVE (56-157)
[2020-02-02 15:04] LABS: HEX PHOS LA Tube 1 44.7 SEC; HEX PHOS LA Tube 2 42.5 SEC; Hexagonal Phospholipid Neut 2.1 SEC (0-8.0)
[2020-02-02] MEDS: Sodium Chloride 0.9% 1,000 ML IV SCH (18:01)
[2020-02-02 19:40] VITALS: TEMP 97.9
[2020-02-02] MEDS: Atorvastatin Calcium 40 MG TAB PO SCH (20:41)
[2020-02-02] MEDS: NIFEdipine XL 30 MG TAB PO SCH (20:42)
[2020-02-02] MEDS: Pregabalin 25 MG CAP PO SCH (21:09)
[2020-02-02 21:18] VITALS: BP 118/54
[2020-02-03 11:32] LABS: ANA Symphony (Qualitative) Negative (Negative); ANA Symphony (Quantitative) 0.2 Ratio (< 0.7 Negative); dsDNA IgG Antibody 0.5 IU/mL (<10 Negative)
[2020-02-03 11:54] LABS: Cardiolipin IgA Ab 0.6 APL-U/mL (<14 Negative); Cardiolipin IgG Ab 0.6 GPL-U/mL (<10 Negative); Cardiolipin IgM Ab Less than 0.8 MPL-U/mL (<10 Negative); EliA APS New Method **** NEW METHOD ****
--- NOTE | 2020-02-03 12:48 | DIS ---
DATE OF ADMISSION: 01/28/2020 DATE OF DISCHARGE: 02/02/2020 DISCHARGE DISPOSITION: To inpatient rehab. PRIMARY DISCHARGE DIAGNOSES: Acute left middle cerebral artery infarct with right hemiplegia, dysphagia, aphasia, and history of recent acute cerebrovascular accident. SECONDARY DISCHARGE DIAGNOSES: End-stage renal disease, on peritoneal dialysis; diabetes mellitus, type 2; anxiety; depression; hypertension; hypothyroidism. PROCEDURES DONE DURING HOSPITALIZATION: The patient has had initial CT brain, which showed no acute intracranial process, but showed stable remote lacunar infarct in the right deep jacobs matter structures. She had a MRI on 01/28/2020, which showed tiny punctate acute infarct in the right occipital lobe, also showed evolving infarct in the right basal ganglia. No mass or bleed was seen. She has had a repeat MRI done the next day on the , which showed stable small focal infarct involving right occipital lobe. There were multifocal infarcts involving left MCA distribution, chronic changes involving left occipital lobe. Echo with 2D Doppler done on 01/31/2020 showed an EF of 60% to 65%. There was diastolic dysfunction and moderate mitral regurgitation. No obvious vegetation was mentioned in the echo report. H and H of 10 and 32, platelet count 356, white count of 14, MCV is 85. Protein C, protein S, and antithrombin III were all within normal limits. Factor VIII levels were elevated at 334.8. Discharge BUN and creatinine were 33 and 7.1. Albumin was 2.8, triglycerides 207, total cholesterol 241, LDL 143, and HDL 57. LAKESHIA screen was negative. HBS antigen was nonreactive. INPATIENT CONSULT: Dr. Grimaldo for Nephrology, Dr. Marks for Cardiology, and Dr. Lawrence for Neurology. DISCHARGE PLAN: The patient to follow up with primary care physician in 1 week. She needs to see Dr. Lawrence, her neurologist in 2 to 3 weeks. BRIEF COURSE DURING HOSPITALIZATION: The patient initially got admitted on the with slurring of speech and word-finding difficulty when she went to see her provider education specialist. She also had weakness in her right lower extremity in addition to that. On arrival, the patient has had a CT brain done, which did not reveal any acute infarct. She has had subsequent MRI, which confirmed left multifocal infarcts with right hemiplegia, dysphagia and aphasia. The patient has had [id number] strokes, and in view of multifocal infarct, she was initiated on anticoagulation. Her heart rhythm is in sinus rhythm all through her stay. Dr. Marks's office will arrange likely event monitor to be placed on her at the rehab. Her anticoagulation was switched over from Lovenox full dose to Eliquis 5 mg twice daily. She has had a repeat echo done, which does not mention any evidence of thrombus. She has had a peritoneal dialysis all through her stay here. She is working with Physical Therapy. The patient still has dense hemiplegia on the right side. She is able to speak a few words now. She still has dysphagia and is on pureed diet. She needs ongoing PT, OT, and speech evaluations at the rehab. She is hemodynamically and neurologically stable for discharge to inpatient rehab. A total of 35 minutes was spent on discharge plan. Please see a [id number] documentation for the day of discharge on [facility]. Job ID: [id number]
== END 2020-02-02 21:05 | DRG 64 ==
LOC: ERS 11:22 → 2SE 12:21
PROVIDERS: ADMIT Internal Medicine; ATTEND Internal Medicine
PROC: 3E1M39Z Irrigation of Peritoneal Cavity using Dialysate, Percutaneous Approach (ICD-10-PCS; principal; 2020-01-28)
DX: I63.9 Cerebral infarction, unspecified (principal); N18.6 End stage renal disease; I12.0 Hypertensive chronic kidney disease with stage 5 chronic kidney disease or end stage renal disease; E87.1 Hypo-osmolality and hyponatremia; G81.91 Hemiplegia, unspecified affecting right dominant side; I25.810 Atherosclerosis of coronary artery bypass graft(s) without angina pectoris; R47.01 Aphasia; E11.22 Type 2 diabetes mellitus with diabetic chronic kidney disease; E87.6 Hypokalemia; D63.1 Anemia in chronic kidney disease; E03.9 Hypothyroidism, unspecified; Z90.710 Acquired absence of both cervix and uterus; Z88.5 Allergy status to narcotic agent; Z88.8 Allergy status to other drugs, medicaments and biological substances; R47.1 Dysarthria and anarthria; R29.810 Facial weakness; I16.0 Hypertensive urgency; Z90.49 Acquired absence of other specified parts of digestive tract; Z98.890 Other specified postprocedural states; I44.0 Atrioventricular block, first degree; E78.00 Pure hypercholesterolemia, unspecified; F41.9 Anxiety disorder, unspecified; F32.9 Major depressive disorder, single episode, unspecified; R40.2362 Coma scale, best motor response, obeys commands, at arrival to emergency department; R40.2142 Coma scale, eyes open, spontaneous, at arrival to emergency department; R40.2252 Coma scale, best verbal response, oriented, at arrival to emergency department; R29.701 NIHSS score 1
CPT/HCPCS: 36415; 36416; 70450; 70551; 71045; 74230; 80048; 80061; 81240; 81241; 82550; 82553; 83090; 84484; 85014; 85018; 85025; 85240; 85300; 85303; 85305; 85307; 85379; 85598; 85610; 85730; 86038; 86147; 86225; 87340; 90945; 93005; 93010; 93306; 96365; G0257; J0360; J1644; J1650

== ENCOUNTER 2020-02-19 08:17 | Day surgery (SDC) | payer MEDICARE ==
[2020-02-19] MEDS ORDERED: Propofol 500 MG/50 ML VIAL ONE (09:23)
[2020-02-19] MEDS ORDERED: PROPOFOL 40 ML ONE (09:23)
[2020-02-19] MEDS ORDERED: Midazolam HCl 2 mg/2 ml Vial ONE (09:23)
[2020-02-19] MEDS ORDERED: Ondansetron PF 4 MG/2 ML Vial ONE (09:23)
[2020-02-19] MEDS ORDERED: Fentanyl 100 MCG/2 ML VIAL ONE (09:23)
[2020-02-19] MEDS ORDERED: Heparin 10,000 UNITS/1 ML VIAL ONE (09:25)
[2020-02-19] MEDS ORDERED: Lidocaine 2% w/Epinephrine 1:200K 20 ML VIAL ONE (09:25)
[2020-02-19] MEDS ORDERED: Sodium Chloride 0.9% 20 ML ONE (09:25)
[2020-02-19] MEDS ORDERED: Bupivacaine 0.25% HCL 30 ML VIAL ONE (09:25)
[2020-02-19 09:32] LABS: #Basophils 0.2 thou/uL (0.0-0.2); #Lymphocytes 4.6 thou/uL (1.20-3.40); #Monocytes 1.1 thou/uL (0.11-0.59); #Neutrophils 6.8 thou/uL (1.40-6.50); %Basophils 1.2 % (0.0-1.0); %Eosinophils 7.5 % (0.0-10.0); %Lymphocytes 33.7 % (21.0-51.0); %Monocytes 7.8 % (0.0-10.0); %Neutrophils 49.8 % (42.0-75.0); Hemoglobin 13.1 g/dL (12.0-16.0); Mean Corpuscular HGB CONC 30.9 g/dL (32.0-36.0); Mean Corpuscular Hemoglobin 27.5 pg (27.0-31.0); Mean Corpuscular Volume 88.9 fL (78.0-98.0); Platelet Count 277 thou/uL (130-400); RBC Distribution Width 13.4 % (11.5-14.5); Red Blood Cell (RBC) Count 4.76 mill/uL (4.20-5.40); White Blood Cell (WBC) Count 13.7 thou/uL (4.8-10.8)
[2020-02-19 09:51] LABS: Anion Gap 18 mmol/L (10-20); BUN (Urea Nitrogen) 40 mg/dL (9.8-20.1); Calc. Creatinine Clearance 0 mL/min (70-130); Calcium 10.8 mg/dL (7.8-10.44); Carbon Dioxide 28 mmol/L (22-29); Chloride 98 mmol/L (98-107); Estimated GFR-MDRD 3; Glucose 147 mg/dL (70-105); Potassium 3.5 mmol/L (3.5-5.1); Sodium 140 mmol/L (136-145)
--- NOTE | 2020-02-19 10:13 | ULT ---
BILATERAL UPPER EXTREMITY VENOUS DOPPLER ULTRASOUND FOR VEIN MAPPING AND DIALYSIS ACCESS: Date: 02/19/2020 HISTORY: End-stage renal disease. FINDINGS/IMPRESSION: RIGHT UPPER EXTREMITY: The right cephalic vein measures 1.4 mm in the proximal arm, 1.0 mm in the mid arm, 1.7 mm in the dis mahnaz arm, 2.2 mm in the antecubital fossa, 1.1 mm in the proximal forearm, 1.2 mm in the mid forearm, and 1.0 mm in the distal forearm. The right basilic vein measures 3.1 mm in the proximal arm, 2.9 mm in the mid arm, 2.7 mm in the dist al arm, 2.2 mm in the antecubital fossa, 1.5 mm in the proximal forearm, 1.7 mm in the mid forearm, a nd 1.1 mm in the distal forearm. The right brachial artery measures 3.4 mm, radial artery measures 1.5 mm, and ulnar artery measures 1 .7 mm. LEFT UPPER EXTREMITY: The left cephalic vein measures 0.7 mm in the proximal arm, 0.6 mm in the mid arm, 0.6 mm in the dist al arm, 2.0 mm in the antecubital fossa, 1.5 mm in the proximal forearm, 0.9 mm in the mid forearm, a nd 1.0 mm in the distal forearm. The left basilic vein measures 2.2 mm in the proximal arm, 2.1 mm in the mid arm, 2.2 mm in the dista l arm, 1.9 mm in the antecubital fossa, 1.8 mm in the proximal forearm, 1.2 mm in the mid forearm, an d 0.8 mm in the distal forearm. The left brachial artery measures 3.7 mm, radial artery measures 1.4 mm, and ulnar artery measures 1. 8 mm. POS: [facility]
--- NOTE | 2020-02-19 10:48 | PDOC.OP ---
Operative Note - Operative Note Operative Note: DATE OF PROCEDURE: DATE OF PROCEDURE: 02/19/2020 PROCEDURE: Placement of left internal jugular tunneled hemodialysis catheter with ultrasound and fluoroscopic guidance. SURGEON: Reema Reich M.D. PREOPERATIVE DIAGNOSIS: End-stage renal failure. POSTOPERATIVE DIAGNOSIS: End-stage renal failure. HISTORY: Patient with renal failure usually treated with peritoneal dialysis who has recently had a stroke. A tunneled hemodialysis catheter for transitional hemodialysis while the patient's family is being trained in peritoneal dialysis has been requested by the patients exerciser. PROCEDURE: After informed consent was obtained and appropriate preoperative antibiotics were administered, the patient was taken to the Operating Room, placed in the supine position and monitored anesthesia care was administered. The neck and chest were prepped and draped in a standard sterile fashion and the patient placed in Trendelenburg position. A sterile ultrasound probe was used to examine the right internal jugular vein but this was far too small for catheter placement. The ultrasound probe was then used to identify the patent compressible left IJ vein which was accessed under direct ultrasound guidance. A wire was threaded through the needle and confirmed by ultrasound to be within the patent compressible vessel with the tip in the vena cava by fluoroscopy. Local anesthesia was infused to the skin and subcutaneous tissues of the left neck and chest. An infraclavicular incision was made and a catheter tunneled from the infraclavicular to the left IJ access site. The left IJ was sequentially dilated over the wire following which a dilator and sheath were placed over the wire and the dilator and wire removed leaving the sheath in place. The catheter was tunneled through the sheath which was then split and removed leaving the catheter in place. This was confirmed by fluoroscopy to be in good position in the superior vena cava with no kinking of the course of the catheter. Both ports easily aspirated dark venous nonpulsatile blood and easily flushed without resistance. Heparin was instilled to the quantity specified on the hub, and the hub was secured to the skin with 3-0 nylon sutures. The skin incision at the neck was closed in two layers with 4-0 Monocryl suture and Dermabond dressings were placed. The skin at the exit site was snugged up around the catheter with 4-0 Monocryl suture and Dermabond was placed there as well. Once the Dermabond was dry, a sterile occlusive chlorhexidine impregnated dressing was placed at the exit site. The patient was taken to Recovery in good condition. Estimated blood loss was minimal. There were no complications. There were no specimens.
--- NOTE | 2020-02-19 11:13 | HP ---
CHIEF COMPLAINT: Need for dialysis access. HISTORY OF PRESENT ILLNESS: Ms Sommer is a 55-year-old woman, known to me from previous encounters, who has end-stage renal failure. She is on peritoneal dialysis and has been doing well with this, but unfortunately had a massive stroke recently and has right hemiparesis and expressive aphasia as a result. She is in rehab currently, but is going to go home soon with family. The family would like to continue with peritoneal dialysis and they have helped her with this in the past , but they need to go through a 2-week period of training for peritoneal dialysis and in the meantime, the patient will need hemodialysis access. There are some concerns about the social situation and whether the patient will be able to continue on peritoneal dialysis long-term, but she and her son, who is her medical power of web feeder, both expressed that they are committed to peritoneal dialysis as an outpatient. PAST MEDICAL HISTORY: Coronary artery disease, status post NM and bypass, end- stage renal failure, diabetes, hypothyroidism, hyperlipidemia, hypertension, celiac disease, depression and migraines. PAST SURGICAL HISTORY: Coronary artery bypass, four-vessel in May 2017 with temporary hemodialysis catheter placement at that time, hysterectomy in 2004, shoulder surgery on the left in 1991, anterior approach cervical spine surgery in 2006. Laparoscopic gastric band placement in 1999, subsequent removal in 2001 and replacement in 2004 and then conversion to a sleeve with removal of gastric band in 2010. She had a laparoscopic peritoneal dialysis catheter and left AV fistula placed in 2016, but this fistula did not develop. She has had wrist surgery on the right in 2018 and she had replacement of her peritoneal dialysis catheter in 2019. FAMILY HISTORY: Heart disease, high blood pressure, diabetes, and cancer of some sort. SOCIAL HISTORY: The patient does not smoke. She drinks alcohol rarely and does not use any illicit drugs. She reports rash and nausea with codeine and morphine, swelling with tramadol and cannot take Toradol due to her renal failure. She has gluten intolerance due to her celiac disease. PHYSICAL EXAMINATION: GENERAL: Reveals a pleasant woman, in no acute distress. She is not flushed or toxic in appearance. She is not jaundiced or icteric. HEENT: Unremarkable with a healed right anterior cervical incision. No thyroid nodules or lymphadenopathy. HEART: Regular in its rate and rhythm without murmurs, rubs, or gallops. LUNGS: Clear to auscultation bilaterally. ABDOMEN: Soft, nondistended. Her PD catheter site is healthy in appearance. She has some mild tenderness in the left upper quadrant. EXTREMITIES: Warm and well perfused with a right hemiparesis. NEUROLOGIC: Right hemiparesis and expressive aphasia, but no receptive aphasia. She follows conversations well and tries to respond. Her speech is somewhat slurred and she has problems with word-finding difficulty. PSYCHIATRIC: Alert, oriented, and appropriate. Her son, who is her medical power of web feeder, and an EMT is at the bedside and assists with conversation and decisions. LABORATORY DATA: White count is mildly elevated at 13, hematocrit is 44, platelets 292. BUN and creatinine yesterday were 41 and 11.14, potassium was 3.5, and bicarb 29, and she did do a full infusion of peritoneal dialysis last night. IMAGING: She did have vein mapping this morning for consideration of AV fistula. The right IJ is small. Right cephalic vein is 0.2 to 0.1 cm in the upper arm and 0.1 to 0.12 cm in the lower arm on the right. The right basilic ranged from 0.22 to 0.31 cm in the upper arm and 0.11 to 0.17 in the lower arm on the right. Left IJ is compressible. Left upper arm cephalic vein ranges from 0.06 to 0.2 cm in the upper arm and the basilic in the upper arm ranges from 0.19 to 0.22 cm. ASSESSMENT: End-stage renal failure, on peritoneal dialysis. She will require hemodialysis access for a period of time as she is transitioning to home care and as her family is trained in peritoneal dialysis access. She has very poor veins overall, although her right upper arm basilic might be suitable for fistula creation. At this point, she and her family are not interested in fistula placement as she is hoping to go back on to peritoneal dialysis, so a hemodialysis catheter alone will be placed today. Inherent risks of the procedure were discussed with the patient and her son. These risks include, but are not limited to, bleeding, infection, risks of anesthesia, hemothorax, pneumothorax, blood clot and infection. They are in agreement with the plan and wants to proceed. Job ID: [id number] [facility]
--- NOTE | 2020-02-19 11:47 | RAD ---
CHEST 1 VIEW PORTABLE: HISTORY: Hemodialysis catheter placement. COMPARISON: 01/30/2020. FINDINGS: Dual-lumen hemodialysis access catheter placement on the left side. No pneumothorax or pleural effus ion. Postop midline sternotomy. No evidence for acute process. IMPRESSION: Left-sided hemodialysis catheter placement without pneumothorax or other acute process. POS: [facility]
[2020-02-19] MEDS ORDERED: Lidocaine 1% PF 5 ML VIAL ONE (13:53)
[2020-02-19] MEDS ORDERED: PROPOFOL 200 MG/20 ML VIAL ONE (13:53)
== END 2020-02-19 12:26 ==
LOC: SDC 08:17
PROVIDERS: ATTEND Surgery
PROC: 02HV33Z Insertion of Infusion Device into Superior Vena Cava, Percutaneous Approach (ICD-10-PCS; principal; 2020-02-19)
DX: I12.0 Hypertensive chronic kidney disease with stage 5 chronic kidney disease or end stage renal disease (principal); E11.22 Type 2 diabetes mellitus with diabetic chronic kidney disease; N18.6 End stage renal disease; I69.351 Hemiplegia and hemiparesis following cerebral infarction affecting right dominant side; I69.320 Aphasia following cerebral infarction; I25.10 Atherosclerotic heart disease of native coronary artery without angina pectoris; I25.2 Old myocardial infarction; E03.9 Hypothyroidism, unspecified; E78.5 Hyperlipidemia, unspecified; K90.0 Celiac disease; F32.9 Major depressive disorder, single episode, unspecified; G43.909 Migraine, unspecified, not intractable, without status migrainosus; Z79.01 Long term (current) use of anticoagulants; Z79.4 Long term (current) use of insulin; Z79.82 Long term (current) use of aspirin; Z79.899 Other long term (current) drug therapy; Z88.5 Allergy status to narcotic agent; Z88.8 Allergy status to other drugs, medicaments and biological substances; Z91.018 Allergy to other foods; Z95.1 Presence of aortocoronary bypass graft; Z98.84 Bariatric surgery status; Z99.2 Dependence on renal dialysis
CPT/HCPCS: 71045; 85025; 93970; C1752; C1769; G0365; J0690; J1644; J2250; J2405; J2704; J3010; S0020